=== PATIENT | female | born 1990 | race Caucasian/White ===

== ENCOUNTER 2021-10-29 09:25 | Emergency (ER) | payer OTHER, SELFPAY ==
[2021-10-29 09:49] VITALS: BP 102/64; PULSE 77; RESP 14; TEMP 36; O2SAT 96
--- NOTE | 2021-10-29 10:09 | ED.WOUNDLAC ---
HPI - Wound/Laceration General Chief Complaint: Wound/Laceration Stated Complaint: absess Time Seen by Provider: 10/29/21 09:58 Source: patient Mode of arrival: ambulatory Limitations: no limitations History of Present Illness HPI narrative: 31-year-old female with a history of IV drug abuse here with reports of abscess to the right side of the neck for 4 days. Patient reports she injected some heroin and cocaine into the site and she ?missed . No fevers, chills. Not interested in detox or substance abuse related Related Data Previous Rx's Medication Instructions Recorded doxycycline monohydrate 100 mg 100 mg PO BID #20 caps 10/29/21 capsule Allergies Allergy/AdvReac Type Severity Reaction Status Date / Time No Known Allergies Allergy Unverified 01/11/20 17:38 Review of Systems Review of Systems: Yes all other systems are reviewed and are negative Constitutional: Constitutional: Reports no additional constitutional complaints, Denies body ache(s), Denies chills, Denies fever(s), Denies headache(s) and Denies weakness Eyes: Eyes: Reports no additional eye complaints and Denies change in vision ENT: Reports system reviewed and no additional complaints, except as documented, Denies dizziness, Denies headache(s), Denies nasal congestion, Denies nasal discharge and Denies neck pain Cardiovascular: Cardiovascular: Reports no additional cardiovascular complaints, Denies chest pain, Denies leg edema and Denies dyspnea Respiratory: Respiratory: Reports no additional respiratory complaints, Denies cough and Denies dyspnea Gastrointestinal: Gastrointestinal: Reports no additional gastrointestinal complaints, Denies abdominal pain, Denies diarrhea, Denies nausea and Denies vomiting Genitourinary: Genitourinary: Reports no additional female genitourinary complaints and Denies urinary incontinence Musculoskeletal: Musculoskeletal: Reports no additional musculoskeletal complaints, Denies back pain, Denies arthralgias, Denies joint swelling, Denies neck pain, Denies numbness and Denies tingling Integumentary/Breasts: Skin/Breast: Reports system reviewed and no additional complaints, except as docu, Reports furuncle, Reports swelling, Reports erythema and Denies rash Neurologic: Reports system reviewed and no additional complaints, except as documented, Denies Abnormal speech present, Denies dizziness, Denies headache(s), Denies numbness, Denies tingling and Denies weakness [facility] Past Medical History Attestation statement: The following information was validated with the patient. Source: old records reviewed and nursing notes reviewed Social History Social History Advance Directives: No Advance Directives Information Provided: No Physical Exam Vital Signs: Vital Signs: Last Vital Signs Temp 96.8 F 10/29/21 09:49 Pulse 77 10/29/21 09:49 Resp 14 10/29/21 09:49 BP 102/64 10/29/21 09:49 Pulse Ox 96 10/29/21 09:49 BMI result Body Mass Index 20.0 Const: General: cooperative, healthy appearing, comfortable and no acute distress Orientation/consciousness: patient oriented x3 Limitations: no limitations HEENT: Head: Yes normal to inspection Ears: hearing grossly normal bilaterally General nose exam: Normal external nose present Face and sinus: Yes normal facial exam Mouth: Normal oral and palatal mucosa present Throat: Yes posterior oropharynx normal Eyes: General: appearance normal, both eyes and all related structures Pupils: Equal, round and reactive pupils present Neck: Neck: Yes normal visual inspection, Yes full ROM, Yes no lymphadenopathy and Yes no meningeal signs Neck images: 1. abscess noted-large with fluctuance/drainage/odor Chest: Chest palpation & inspection: normal inspection of the chest Resp: Effort & Inspection: normal respiratory effort Auscultation: clear to auscultation bilaterally Cardio: Rate: regular rate Rhythm: regular rhythm Peripheral pulses: Peripheral pulses 2+ throughout GI: Inspection: Yes normal to inspection Palpation (GI): Soft to palpation and nontender Auscultation: normal bowel sounds Back/Spine/Pelvis: Thoracic/Lumbar Spine: thoracic and lumbar spine normal to inspection Skin: General skin exam: no rashes or lesions noted Neuro: General: patient oriented x3, no meningeal signs, no focal motor deficits and normal sensation to monofilament Cranial nerves: Yes Equal, round and reactive pupils present Cognition (Neuro): normal cognition Speech: No Abnormal speech present Gait exam (Neuro): Normal gait present Motor exam (neuro): 5/5 motor strength present throughout Extrem: General: Yes normal to inspection Course Course Course Narrative: See procedure note. Will start oral antibiotics. Wound culture sent. Will contact patient with results through friend Wander in the room. Asked nursing to update phone number in chart with registration. Unfortunately this was not done prior to patient leaving. Reviewed worrisome signs/symptoms with patient and when to seek additional care. Comfortable with discharge home. MDM - Wound/Laceration MDM Narrative Medical decision making narrative: 31-year-old female here with abscess to the right side of the neck for 4 days after injecting some heroin and cocaine into the site. Patient will need an I&D of the abscess and oral antibiotics She is not interested in detox or detox resources Overall well-appearing. Nontoxic. Afebrile Medical Records Attestation: I reviewed the patient's medical records. Lab Data Attestation: I reviewed the patient's lab results. Procedures Abscess I/D Site: neck Side (if applicable): right Local Anesthetic: lidocaine 1% Amount of anesthesia used (mL): 5 Technique: incised with blade Amount of fluid expressed (mL): 10 Sent for culture/gram staining?: Yes Irrigation: No Packing used?: iodoform Discharge Plan Discharge Clinical Impression: Abscess Patient Disposition: Home, Self-Care Instructions: Abscess (ED), Abscess Incision and Drainage (DC) Additional Instructions: Return for packing removal in 2 days If the packing falls out do not return Prescriptions: New doxycycline monohydrate 100 mg capsule 100 mg PO BID Qty: 20 0RF Referrals: Physician,Unknown J [Primary Care Provider] - Interventions: ED Discharge Assessment Last Done: 10/29/21 11:22 Discharge Date/Time: 10/29/21 11:24
[2021-10-29] MEDS: Lidocaine 4 % Cream KIT 1 APPL TOPICAL (10:18)
[2021-10-29] MEDS: Ibuprofen 600 MG TABLET PO (11:18)
[2021-10-29] MEDS: Lidocaine HCl 1 % MPF 5 ML VIAL SUBCUT (11:22)
== END 2021-10-29 11:24 | disposition home or self-care (01) ==
PROVIDERS: Emergency Provider Internal Medicine
DX: L02.11 Cutaneous abscess of neck (principal); F19.10 Other psychoactive substance abuse, uncomplicated
CPT/HCPCS: 10060; 87071; 87205; 99283; 99284

== ENCOUNTER 2023-05-17 17:43 | Inpatient (IN) | payer SELFPAY ==
--- NOTE | ~2023-05-17 | XR_ITS ---
EXAMINATION: XR HAND, LEFT CLINICAL INFORMATION: Pain. Injury. COMPARISON: None available. TECHNIQUE: PA, lateral, and oblique views of the left hand. FINDINGS: There is soft tissue swelling at the dorsum of the hand. No air in the soft tissue and no radiopaque foreign body. No fracture. Bone and joint are normal. XR/XR hand LT min 3V IMPRESSION: Soft tissue swelling at the dorsum of the hand. No acute osseous abnormality.
[2023-05-17 18:26] VITALS: BP 104/57; PULSE 78; RESP 18; TEMP 37; O2SAT 97; BMI 18.6
--- NOTE | 2023-05-17 18:26 | ED_ITS ---
HPI - General Adult General Chief complaint: Extremity Injury, Upper Stated complaint: Left hand infection Time Seen by Provider: 05/17/23 20:03 Source: patient Mode of arrival: ambulatory Limitations: no limitations History of Present Illness HPI narrative: 33 yo female who has hx of IVDA here with injection site infection dorsum of L hand - started 5 days ago. She is R hand dominant. No hx of MRSA. She notes the redness and swelling has worsened. She has a ring on the 4th finger but adamantly refuses to take it off. MD complaint: L hand infection Onset (ago): day(s) (5) Location: left and upper extremity Radiation: non-radiation Severity: severe Quality: aching Pain Consistency: constant Relieving factors: immobilization Exacerbating factors: movement Associated symptoms: rash Treatments prior to arrival: none Related Data Previous Rx's Medication Instructions Recorded doxycycline monohydrate 100 mg 100 mg PO BID #20 caps 10/29/21 capsule Allergies Allergy/AdvReac Type Severity Reaction Status Date / Time No Known Allergies Allergy Verified 05/17/23 18:26 Review of Systems 2 Review of Systems: Constitutional : No Fever, No Chills ENT/Mouth : No sore throat, No Rhinorrhea Eyes: No Eye Pain, No Swelling, No Redness Cardiovascular : No Chest Pain, No SOB Respiratory : No Cough, No Sputum Gastrointestinal : No Nausea, No Vomiting, No Diarrhea, No abdominal Pain Genitourinary : No Dysuria, No Hematuria Musculoskeletal : No joint pain, No Myalgias, No Joint Swelling Skin : No Skin Lesions, positive skin rash Neuro : No Weakness, No Numbness, No Headache Psych : No Anxiety, No Depression Heme/Lymph: No Bruising, No Bleeding,No Lymphadenopathy Endocrine : No Polyuria, No Polydipsia All other systems reviewed and are negative [facility] Past Medical History Attestation statement: The following information was validated with the patient. Source: old records reviewed Medical History Intravenous drug abuse Social History Social History (Updated 05/17/23 @ 20:21 by Rachna Clifton DO) Patient Tobacco Use Status: Tobacco use Unknown Substance Use Type: IV Drugs Advance Directives: No Advance Directives Information Provided: No Physical Exam ED Vital Signs: Vital Signs - 24 hr 05/17/23 18:26 Temperature 98.6 F Pulse Rate 78 Respiratory Rate 18 Blood Pressure 104/57 L Pulse Oximetry 97 Oxygen Delivery Method Room Air BMI result Body Mass Index 18.6 Appearance: Alert. Oriented X3. No acute distress. slightly restless Eyes: Pupils equal, round and reactive to light. ENT: Pharynx normal. Neck: Normal inspection. Neck supple. CVS: Normal heart rate and rhythm. Pulses normal. Respiratory: No respiratory distress. Breath sounds normal. Abdomen: Soft and nontender. Skin: Skin warm and dry. Normal skin color. Normal skin turgor. Extremities: No lower extremity edema. L hand large abscess with redness onto the fingers and forearm - distal NV intact she can make a fist and give thumbs up swelling goes onto the thenar eminence but she has normal ROM of the thumb. There is warmth noted. She has a ring on 4th finger but after discussion about risks she refuses to take it off. Neuro: Oriented X 3. No motor deficit. No sensory deficit. Course Course Course Narrative: RME performed by Evita Soriano PA-C. Patient is a 33 year old assigned female at presenting to the emergency department with a large left hand abscess. History of IV drug use. Detailed physical exam and review of systems are deferred to the eyeglass assembler. Labs and imaging ordered. Patient placed back in the waiting room pending room availability and results. Reevaluation(s) Reevaluation #1: pain improved after IV morphine during procedure Medications Administered Generic Name Dose Route Start Last Admin Trade Name Freq PRN Reason Stop Dose Admin Vancomycin HCl 1,250 mg/ 250 mls @ 166.667 mls/hr 05/17/23 20:06 05/17/23 21:21 Sodium Chloride IV 05/17/23 21:35 166.67 mls/hr ONCE ONE Administration Discontinued Medications Generic Name Dose Route Start Last Admin Trade Name Freq PRN Reason Stop Dose Admin Piperacillin Sod/Tazobactam 50 mls @ 100 mls/hr 05/17/23 20:06 05/17/23 21:22 Sod 3.375 gm/ Sodium Chloride IV 05/17/23 20:35 Infused ONCE ONE Infusion Sodium Chloride 1,000 mls @ 999 mls/hr 05/17/23 20:15 05/17/23 20:29 Ns IV 05/17/23 21:15 999 mls/hr .Q1H1M WILLEM Administration Lidocaine HCl 1 appl 05/17/23 20:13 05/17/23 20:20 Lidocaine 4 % Cream Kit TOPICAL 05/17/23 20:14 1 appl ONCE ONE Administration Protocol Lidocaine HCl 5 ml 05/17/23 20:13 05/17/23 20:32 Lidocaine Hcl 1 % Mpf 5 Ml Vial SUBCUT 05/17/23 20:14 5 ml ONCE ONE Administration Lorazepam 1 mg 05/17/23 20:13 05/17/23 20:22 Lorazepam 1 Mg Tablet PO 05/17/23 20:14 1 mg ONCE ONE Administration Morphine Sulfate 4 mg 05/17/23 21:11 05/17/23 21:15 Morphine Sulfate 4 Mg/Ml Cartridge IVPUSH 05/17/23 21:12 4 mg ONCE ONE Administration Protocol Procedures Abscess I/D Site: hand Side (if applicable): left Local Anesthetic: lidocaine 1% Amount of anesthesia used (mL): 2 Technique: incised with blade Amount of fluid expressed (mL): 20 Sent for culture/gram staining?: Yes Irrigation: Yes Packing used?: iodoform Medical Decision Making Medical Decision Making [facility] Narrative: 33 yo female R hand dominant here with worsening L hand abscess from IVDA she can make a fist - she refuses to take her ring off though we discussed limb ischemia. She is open to methadone for detox. She will need labs, IV vancomycin and zosyn. I do not think she has signs of tendon involvement at this time but bedside I+D should be done now with orthopedics follow up in AM - I did send a message to Dr. Burrows and will admit to the hospitalist. She is NV intact Differential Diagnosis Differential Diagnoses: The differential diagnosis associated with the presentation includes cellulitis, abscess Admission/Observation Consideration of admission/observation: Escalation of care including admission/observation considered admit for IV antibiotics Consult Healthcare Provider Management of the patient was discussed with: Hospitalist (will admit) and Sketcher (notified orthopedics team) Lab Data [facility] Lab Attestation statement: I reviewed the patient's lab results. 05/17/23 19:52 05/17/23 19:52 Labs: Lab Results 05/17/23 Range/Units 19:52 WBC 13.1 H (4.8-10.8) X10*3/uL RBC 3.93 L (4.20-5.50) X10*6/uL Hgb 11.5 L (12.0-16.0) g/dl Hct 34.3 L (37.0-47.0) % MCV 87.3 (80.0-98.0) fL MCH 29.3 (27.0-33.0) pg MCHC 33.5 (31.0-35.0) g/dl RDW 12.6 (11.0-16.0) % Plt Count 249 (160-400) X10*3/uL MPV 8.7 L (9.4-12.3) fL Immature Gran % (Auto) 0.3 (0.0-0.4) % Neut % (Auto) 63.4 (45-73) % Lymph % (Auto) 23.1 (20-40) % [place] % (Auto) 9.3 (2-11) % Eos % (Auto) 3.6 (0-4) % Baso % (Auto) 0.3 (0-2) % Lymph # (Auto) 3.0 (1.2-4.9) X10*3/uL [place] # (Auto) 1.2 (0.1-1.2) X10*3/uL Eos # (Auto) 0.5 H (0.0-0.4) X10*3/uL Baso # (Auto) 0.0 (0.0-0.2) X10*3/uL Abs Immat Gran (auto) 0.04 H (0.00-0.03) X10*3/uL Absolute Neuts (auto) 8.3 (2.0-8.3) x10*3/uL Absolute Nucleated RBC 0.000 (0.0-0.012) X10*3/uL Nucleated RBC % (auto) 0.0 (0.0-0.2) /100WBC ESR 45 H (0-20) MM/HR Sodium 135 (135-145) mmol/L Potassium 3.9 (3.3-5.1) mmol/L Chloride 100 (96-108) mmol/L Carbon Dioxide 29 (22-29) mmol/L Anion Gap 10 L (12-20) BUN 12 (9-16) mg/dL Creatinine 0.65 (0.5-1.4) mg/dL Estim Creat Clear Calc 102.9 Estimated GFR > 60 Random Glucose 88 (60-115) mg/dL Lactic Acid 0.8 (0.5-2.0) mmol/L Calcium 9.3 (8.4-10.2) mg/dL Magnesium 1.9 (1.6-2.6) mg/dL Total Bilirubin 0.6 (0.0-1.0) mg/dL AST 159 H (5-31) U/L ALT 219 H (0-31) U/L Alkaline Phosphatase 76 (39-117) U/L C-Reactive Protein 6.85 H (< or = 0.50) mg/dL Total Protein 7.9 (6.5-8.0) g/dL Albumin 3.9 (3.5-5.0) g/dL Beta HCG, Quant < 2 mIU/mL Independent Interpretation I performed an independent interpretation of an: Plain X-Ray (normal ) Radiology Impression Discussion of test interpretation with radiology: I have reviewed the radiologist's reading. Independent Historian Clinical information obtained from an independent historian. History obtained from or confirmed by: Spouse Critical Care Time Critical Care Time Critical Care Time: Yes Total Critical Care Time: 35 Attestation: pain improved with IV morphine I attest to this time spent taking care of the patient Discharge Plan Discharge Clinical Impression: Abscess of hand, Drug abuse, IV Elevated WBC count Qualifiers: Leukocytosis type: unspecified Qualified Code(s): D72.829 - Elevated white blood cell count, unspecified Patient Disposition: Admitted As Inpatient
--- NOTE | 2023-05-17 19:55 | MHC.EDTECH ---
Patient brought into triage area,1ST set of blood cultures,lactic,and labs were obtained and sent to lab, patient brought into ED 10 per request of charge.
[2023-05-17 20:03] LABS: MANUAL DIFF FLAG NO
[2023-05-17 20:05] LABS: Basophils Percent Auto 0.3 % (0-2); Eosinophils Absolute Auto 0.5 X10*3/uL (0.0-0.4); Eosinophils Percent Auto 3.6 % (0-4); Hematocrit 34.3 % (37.0-47.0); Hemoglobin 11.5 g/dl (12.0-16.0); Imm Gran Abs Auto 0.04 X10*3/uL (0.00-0.03); Imm Gran Pct Auto 0.3 % (0.0-0.4); Lymphocytes Percent Auto 23.1 % (20-40); Mean Corpuscular HGB Conc 33.5 g/dl (31.0-35.0); Mean Corpuscular Hemoglobin 29.3 pg (27.0-33.0); Mean Corpuscular Volume 87.3 fL (80.0-98.0); Mean Platelet Volume 8.7 fL (9.4-12.3); Monocytes Absolute Auto 1.2 X10*3/uL (0.1-1.2); Monocytes Percent Auto 9.3 % (2-11); Neutrophils Absolute Auto 8.3 x10*3/uL (2.0-8.3); Neutrophils Percent Auto 63.4 % (45-73); Platelet Count 249 X10*3/uL (160-400); Red Blood Count 3.93 X10*6/uL (4.20-5.50); Red Cell Distribution Width 12.6 % (11.0-16.0); White Blood Count 13.1 X10*3/uL (4.8-10.8)
[2023-05-17 20:15] LABS: Lactic Acid 0.8 mmol/L (0.5-2.0)
[2023-05-17 20:20] LABS: Alanine Aminotransferase 219 U/L (0-31); Albumin Level 3.9 g/dL (3.5-5.0); Alkaline Phosphatase 76 U/L (39-117); Anion Gap 10 (12-20); Aspartate Amino Transferase 159 U/L (5-31); Bilirubin Total 0.6 mg/dL (0.0-1.0); Blood Urea Nitrogen 12 mg/dL (9-16); C Reactive Protein 6.85 mg/dL (< or = 0.50); Calcium 9.3 mg/dL (8.4-10.2); Carbon Dioxide 29 mmol/L (22-29); Chloride 100 mmol/L (96-108); Creatinine Clr Calc Pharmacy 102.9; Estimated Glomerular Filt Rate > 60; Glucose Random 88 mg/dL (60-115); Magnesium 1.9 mg/dL (1.6-2.6); Potassium 3.9 mmol/L (3.3-5.1); Sodium 135 mmol/L (135-145); Total Protein 7.9 g/dL (6.5-8.0)
[2023-05-17] MEDS: Lidocaine 4 % Cream KIT 1 APPL TOPICAL (20:20)
[2023-05-17] MEDS: LORazepam 1 MG TABLET PO (20:22)
[2023-05-17] MEDS: 0.9 % Sodium Chloride 1,000 ML 999 ML IV ×2 (20:29→22:21)
[2023-05-17] MEDS: Piperacillin Sodium/Tazobactam 3.375 GM in 0.9 % Sodium Chloride 50 ML IV (20:29)
[2023-05-17] MEDS: Lidocaine HCl 1 % MPF 5 ML VIAL SUBCUT (20:32)
[2023-05-17 20:49] LABS: Erythrocyte Sedimentation Rate 45 MM/HR (0-20)
[2023-05-17 20:58] LABS: HCG Quantitative < 2 mIU/mL
[2023-05-17] MEDS: Morphine Sulfate 4 MG/ML CARTRIDGE IVPUSH (21:15)
[2023-05-17] MEDS: vancomycin HCL 1,250 MG in 0.9 % Sodium Chloride 250 ML 166.67 MG IV (21:21)
--- NOTE | 2023-05-17 21:30 | PC.NURSE ---
Pt presents with an abscess to the left hand. Dr Clifton at bedside drained a significant amount of blood and puss. Pt has a 20g IV in the right AC. Medicated per JUN. Pt reports pain decreased slightly after lidocaine and ,orphine. Hand is wrapped and secure. Pt likely to be admitted with IV antibiotics.
[2023-05-17 21:31] VITALS: BP 105/55; PULSE 71; RESP 16; TEMP 36.8; O2SAT 95
--- NOTE | 2023-05-17 21:46 | PC.NURSE ---
Per Dr Clifton, holding methadone until pt is beginning to withdraw.
--- NOTE | 2023-05-17 21:50 | PHA.MEDREC ---
Pharmacy Consult ? Medication Reconciliation Pharmacy has completed the medication reconciliation.Patient confirmed she is not taking ANY medication. Jazmine Galvan CPht
--- NOTE | 2023-05-17 21:55 | PHA.PROG ---
Admission Date/Time: Indication: SKIN/STRUCTURE Weight in k.977 kg Adjusted body weight in K.551 [place] body weight in K.6 Obesity Dosing Indication % IBW: 18.6 Serum Creatinine - Last 168 Hours 05/17/23 19:52 Creatinine 0.65 Estimated CrCl and GFR - Last 168 Hours 05/17/23 19:52 Estim Creat Clear Calc 102.9 Estimated GFR > 60 Vancomycin Loading Dose: 1250 MG Current Vancomycin Dosing Regimen: 1000 MG Q12 Vancomycin Monitoring using AUC goal of 400 - 600 range with trough as surrogate marker:499/14.2 Date and Time for next Vancomycin Level to be drawn: 05/19 @0700 Pharmacist Comments on Vancomycin Plan: APPROPRIATE LOAD GIVEN IN ED. MONITOR RENAL FUNCTION CLOSELY WITH CONCURRENT ZOSYN ADMINISTRATION. Vancomycin dosing will take advantage of [employer] as a clinical decision support tool that uses Bayesian modeling to calculate individual patient's pharmacokinetic parameters and forecast the patient's drug concentration time course with the target goal AUC 24 range of 400 - 600 mg/L/hr.
[2023-05-17 22:10] VITALS: BP 100/49; PULSE 72; RESP 14; O2SAT 95
--- NOTE | 2023-05-17 23:38 | P.HPHOSP_ITS ---
History of Present Illness Date of Service: 05/17/23 Attending physician on admission: Edgar Noble Chief Complaint: Left hand swelling Aline Handy is a 33 years old woman with past medical history significant for IVDU presents to the emergency department complaining of left had swelling, redness and pain that has been getting worse over the last 6 days. Prior to these symptoms she injected the dorsum of the hand with heroin but she missed the vein. She denies any headache, nausea, vomiting, fevers chills. She denies any cardiopulmonary, gastrointestinal or genitourinary symptoms. She expressed that she would like to start rehab and hopefully stop using illegal drugs. In the ED, she was found to have stable vital signs. Blood workup was remarkable for leukocytosis of 13.1 and elevated CRP. AST and ALT elevated. Total bilirubin and alk-phos are normal. There is no lactic acidosis. test was negative. Blood cultures were obtained. Left hand x-ray showed soft tissue swelling at the dorsum of the hand without acute osseous abnormalities. ED tx: Vancomycin 1250 mg IV, Zosyn 3.375 g IV, lorazepam 1 mg p.o. x1, NS 1 L bolus, morphine 4 mg. I&D was performed, removing abundant quantity of purulent fluid and sent for analysis. Review of Systems 2 Review of Systems: All 12 systems were reviewed and normal except as noted in HPI. [facility] Medical History Intravenous drug abuse Social History (Updated 05/17/23 @ 20:21 by Rachna Clifton DO) Patient Tobacco Use Status: Current everyday Tobacco user Smoked in Last 30 Days: Yes Use of substances other than those prescribed or required for medical reasons: Yes Substance Use Type: Crack/Cocaine and Heroin Substance Use Frequency: Daily Advance Directives: No Advance Directives Information Provided: No Patient : No Meds Allergies Allergy/AdvReac Type Severity Reaction Status Date / Time No Known Allergies Allergy Verified 05/17/23 18:26 Active Medications: Current Medications Acetaminophen (Acetaminophen 325 Mg Tablet) 975 mg PO Q6H PRN PRN Reason: Fever Vancomycin HCl 1,000 mg/ (Sodium Chloride) 270 mls @ 270 mls/hr IV Q12H WILLEM Piperacillin Sod/Tazobactam (Sod 3.375 gm/ Sodium Chloride) 50 mls @ 100 mls/hr IV Q8H WILLEM Oxycodone HCl (Oxycodone Hcl Immed Release 5 Mg Tablet) 5 mg PO Q6H PRN PRN Reason: Pain, Severe (Pain Scale 7-10) Pharmacy Consult (Consult Rx Vancomycin Dosing) 1 each MISCELLANE DAILY PRN PRN Reason: Consult order Pharmacy Consult (Consult Rx Vancomycin Dosing) 1 each MISCELLANE DAILY PRN PRN Reason: Consult order Sodium Chloride (0.9 % Sodium Chloride Flush 3 Ml Syringe) 3 ml IVFLUSH QSHIFT WILLEM Physical Exam 2 Vital Signs and Narrative: Vital Signs: Last Vital Signs Temp 98.2 F 05/17/23 21:31 Pulse 72 05/17/23 22:10 Resp 14 05/17/23 22:10 BP 100/49 L 05/17/23 22:10 Pulse Ox 95 05/17/23 22:10 O2 Del Method Room Air 05/17/23 22:10 BMI result Body Mass Index 18.6 Constitutional - Awake and Alert, No apparent distress. Pleasant. Cooperative. HEENT - Normocephalic. Atraumatic. Pupils equally round. No scleral icterus. Cardiovascular -Regular rate and rhythm. No murmur. Respiratory - Normal lung expansion, Normal respiratory effort, No respiratory distress, CTA bilaterally Gastrointestinal - NT / ND; +BS; No rebound or guarding Extremities - left hand: Please see picture ED note. Musculoskeletal - Normal inspection, normal ROM Skin - Warm/Dry Neurological - Alert & oriented x3, CN II-XII in tact, 5/5 strength BUE and BLE Psychological - Appropriate affect Results Labs 05/17/23 19:52 05/17/23 19:52 Labs: Laboratory Results - last 24 hr 05/17/23 19:52 MCV 87.3 MCH 29.3 MCHC 33.5 RDW 12.6 Plt Count 249 MPV 8.7 L Immature Gran % (Auto) 0.3 Neut % (Auto) 63.4 Lymph % (Auto) 23.1 [place] % (Auto) 9.3 Eos % (Auto) 3.6 Baso % (Auto) 0.3 Lymph # (Auto) 3.0 [place] # (Auto) 1.2 Eos # (Auto) 0.5 H Baso # (Auto) 0.0 Abs Immat Gran (auto) 0.04 H Absolute Neuts (auto) 8.3 Absolute Nucleated RBC 0.000 Nucleated RBC % (auto) 0.0 ESR 45 H Anion Gap 10 L Estim Creat Clear Calc 102.9 Estimated GFR > 60 Random Glucose 88 Lactic Acid 0.8 Calcium 9.3 Magnesium 1.9 Total Bilirubin 0.6 AST 159 H ALT 219 H Alkaline Phosphatase 76 C-Reactive Protein 6.85 H Total Protein 7.9 Albumin 3.9 Beta HCG, Quant < 2 Imaging Radiologist's Impressions: Impressions Hand X-Ray 05/17/23 18:39 IMPRESSION: Soft tissue swelling at the dorsum of the hand. No acute osseous abnormality. Assessment and Plan (1) Drug abuse, IV: Status: Acute (2) Abscess of hand: Status: Acute Plan Aline Handy is a 33 years old woman admitted with: * Left hand cellulitis and abscess, s/p I&D (20 ml). Admit to hospitalist service. Continue empiric IV antibiotic therapy with vancomycin and Zosyn. Blood and abscess cultures were obtained and sent for analysis- will follow results. Pain control as needed. Ortho consult. * Elevated transaminases. (alk phos and total bilirubin are normal). Check total CK, hepatitis B and hepatitis C viral. Continue to monitor LFTs. * Intravenous drug abuse: heroin. Social work consult -patient needs help to detox. Quality Stroke Does the patient have a stroke diagnosis?: No VTE Prior VTE?: No VTE Risk Level:: Medical - low VTE Device Contraindication: N/A - Device Ordered VTE Drug Contraindication: Treatment Not Indicated
[2023-05-18] MEDS: Piperacillin Sodium/Tazobactam 3.375 GM in 0.9 % Sodium Chloride 50 ML IV ×3 (03:41→19:47)
[2023-05-18] MEDS: Ketorolac Tromethamine 15 MG/ML VIAL IVPUSH ×2 (04:39→10:38)
[2023-05-18 05:41] LABS: MANUAL DIFF FLAG NO
[2023-05-18 05:43] LABS: Basophils Percent Auto 0.2 % (0-2); Eosinophils Absolute Auto 0.4 X10*3/uL (0.0-0.4); Eosinophils Percent Auto 4.8 % (0-4); Hematocrit 29.9 % (37.0-47.0); Imm Gran Abs Auto 0.02 X10*3/uL (0.00-0.03); Imm Gran Pct Auto 0.2 % (0.0-0.4); Lymphocytes Absolute Auto 1.8 X10*3/uL (1.2-4.9); Lymphocytes Percent Auto 20.8 % (20-40); Mean Corpuscular HGB Conc 33.4 g/dl (31.0-35.0); Mean Corpuscular Hemoglobin 29.7 pg (27.0-33.0); Mean Corpuscular Volume 88.7 fL (80.0-98.0); Monocytes Absolute Auto 0.8 X10*3/uL (0.1-1.2); Monocytes Percent Auto 9.5 % (2-11); Neutrophils Absolute Auto 5.5 x10*3/uL (2.0-8.3); Neutrophils Percent Auto 64.5 % (45-73); Platelet Count 212 X10*3/uL (160-400); Red Blood Count 3.37 X10*6/uL (4.20-5.50); Red Cell Distribution Width 12.8 % (11.0-16.0); White Blood Count 8.6 X10*3/uL (4.8-10.8)
[2023-05-18 06:05] VITALS: BP 100/59; PULSE 70; RESP 16; TEMP 36.8; O2SAT 95
[2023-05-18 06:13] LABS: Alanine Aminotransferase 177 U/L (0-31); Alkaline Phosphatase 54 U/L (39-117); Anion Gap 9 (12-20); Aspartate Amino Transferase 135 U/L (5-31); Bilirubin Total 0.8 mg/dL (0.0-1.0); Blood Urea Nitrogen 8 mg/dL (9-16); Calcium 8.2 mg/dL (8.4-10.2); Carbon Dioxide 25 mmol/L (22-29); Chloride 106 mmol/L (96-108); Creatinine Clr Calc Pharmacy 95.5; Estimated Glomerular Filt Rate > 60; Glucose Random 180 mg/dL (60-115); Potassium 3.1 mmol/L (3.3-5.1); Sodium 137 mmol/L (135-145); Total Protein 6.2 g/dL (6.5-8.0)
--- NOTE | 2023-05-18 07:19 | HE.PHANOTE ---
RE: VANCO Will continue with current dose of 1000 mg Q12H. Patients renal function is currently unstable. Level to be drawn tomorrow 05/19 @0700 to ensure safety vs efficacy.
--- NOTE | 2023-05-18 08:01 | PM.EVENT ---
Event Note Date of Service: 05/18/23 Event Note: left hand ivdu abscess packing pulled new packing placed perform warm water soaks resting splint no surgery at this time Time Spent With Patient Time: Total time managing care of this patient today ____ minutes.
--- NOTE | 2023-05-18 08:05 | PHA.MEDREC ---
Pharmacy Consult ? Medication Reconciliation Pharmacy has completed the medication reconciliation. Spoke with patient in ED. Patient states she is not on any RX medications or OTC medications.
--- NOTE | 2023-05-18 08:34 | MHC.CM.PN ---
CM met with Patient at bedside. Patient lives in an apartment with her Friend/Luke and she has no insurance (referral to Financial sent)and no PCP(Pamphlet of area PCSs to be given to Patient). DC plan is TBD and CM has initiated and will follow for dc planning.Patient may benefit from a Recovery Consult r/t IVDA.
--- NOTE | 2023-05-18 09:46 | P.CONOP_ITS ---
History of Present Illness [facility] Consult date: 05/18/23 Chief complaint: Left hand cellulitis Narrative: 33 yo female admitted to the medical service for treatment of left hand abscess. She states she injected heroin into the dorsum of her left hand 6 days ago. Subsequently she noticed worsening redness and pain which prompted visit to ED. While in the ED, the abscess was drained and packed with iodoform packing and orthpedics was constuled for further recommendations. She was started on IV vanco/zosyn Review of Systems 2 Review of Systems: per [facility] Past Medical History Medical History Intravenous drug abuse Social History Social History (Updated 05/17/23 @ 20:21 by Rachna Clifton DO) Patient Tobacco Use Status: Current everyday Tobacco user Smoked in Last 30 Days: Yes Use of substances other than those prescribed or required for medical reasons: Yes Substance Use Type: Crack/Cocaine and Heroin Substance Use Frequency: Daily Advance Directives: No Advance Directives Information Provided: No Patient : No service: No Meds Allergies Allergy/AdvReac Type Severity Reaction Status Date / Time No Known Allergies Allergy Verified 05/17/23 18:26 Active Medications: Current Medications Acetaminophen (Acetaminophen 325 Mg Tablet) 975 mg PO Q6H PRN PRN Reason: Fever Vancomycin HCl 1,000 mg/ (Sodium Chloride) 270 mls @ 270 mls/hr IV Q12H [facility] Piperacillin Sod/Tazobactam (Sod 3.375 gm/ Sodium Chloride) 50 mls @ 100 mls/hr IV Q8H [facility] Last Infusion: 05/18/23 04:37 Dose: Infused Ketorolac Tromethamine (Ketorolac Tromethamine 15 Mg/Ml Vial) 15 mg IVPUSH Q6H [facility] Stop: 05/18/23 10:31 Last Admin: 05/18/23 04:39 Dose: 15 mg Oxycodone HCl (Oxycodone Hcl Immed Release 5 Mg Tablet) 5 mg PO Q6H PRN PRN Reason: Pain, Severe (Pain Scale 7-10) Pharmacy Consult (Consult Rx Vancomycin Dosing) 1 each MISCELLANE DAILY PRN PRN Reason: Consult order Pharmacy Consult (Consult Rx Vancomycin Dosing) 1 each MISCELLANE DAILY PRN PRN Reason: Consult order Sodium Chloride (0.9 % Sodium Chloride Flush 3 Ml Syringe) 3 ml IVFLUSH QSHIFT [facility] Last Admin: 05/18/23 07:34 Dose: Not Given Home Medications Medication Instructions Recorded Confirmed Last Taken Type No Known Home Meds 05/18/23 05/18/23 Unknown History Physical Exam 2 Vital Signs: Vital Signs: Last Vital Signs Temp 98.2 F 05/18/23 06:05 Pulse 70 05/18/23 06:05 Resp 16 05/18/23 06:05 BP 100/59 L 05/18/23 06:05 Pulse Ox 95 05/18/23 06:05 O2 Del Method Room Air 05/18/23 06:05 BMI result Body Mass Index 18.6 Const: General: cooperative, healthy appearing, comfortable and no acute distress Extrem: Other: Left hand abscess over the dorsum of the hand between the webspace of the thumb and index finger. There is purulant drainage and packing in place. Mild diffuse swelling throughout the dorsum of he hand. She is able to flex and extend all digits. NVI. Results Labs 05/18/23 05:27 05/18/23 05:27 Labs: Abnormal lab results 05/17/23 05/18/23 Range/Units 19:52 05:27 WBC 13.1 H (4.8-10.8) X10*3/uL RBC 3.93 L 3.37 L (4.20-5.50) X10*6/uL Hgb 11.5 L 10.0 L (12.0-16.0) g/dl Hct 34.3 L 29.9 L (37.0-47.0) % MPV 8.7 L 9.0 L (9.4-12.3) fL Eos % (Auto) 4.8 H (0-4) % Eos # (Auto) 0.5 H (0.0-0.4) X10*3/uL Abs Immat Gran (auto) 0.04 H (0.00-0.03) X10*3/uL ESR 45 H (0-20) MM/HR Potassium 3.1 L D (3.3-5.1) mmol/L Anion Gap 10 L 9 L (12-20) BUN 8 L (9-16) mg/dL Random Glucose 180 H (60-115) mg/dL Calcium 8.2 L D (8.4-10.2) mg/dL AST 159 H 135 H (5-31) U/L ALT 219 H 177 H (0-31) U/L C-Reactive Protein 6.85 H (< or = 0.50) mg/dL Total Protein 6.2 L (6.5-8.0) g/dL Albumin 3.0 L (3.5-5.0) g/dL H & H 05/17/23 05/18/23 Range/Units 19:52 05:27 Hgb 11.5 L 10.0 L (12.0-16.0) g/dl Hct 34.3 L 29.9 L (37.0-47.0) % All other labs normal. Assessment and Plan (1) Abscess of hand: Status: Acute Plan Continue IV abx packing pulled and new packing placed pull tomorrow and perform warm water soaks Resting splint No surgical intervention at this time Procedures Date of Service Date of Service: 05/18/23
[2023-05-18] MEDS: vancomycin HCL 1,000 MG in 0.9 % Sodium Chloride 250 ML 270 MG IV ×2 (10:41→21:06)
[2023-05-18 10:45] VITALS: BP 105/49; PULSE 61; RESP 12; TEMP 36.7; O2SAT 98
[2023-05-18 12:24] VITALS: BP 123/71; PULSE 87; RESP 16; TEMP 36.6; O2SAT 100
[2023-05-18] MEDS: oxyCODONE HCl Immed Release 5 MG TABLET PO ×2 (12:57→19:49)
[2023-05-18] MEDS: Acetaminophen 325 MG TABLET 975 MG PO (12:58)
[2023-05-18 13:04] LABS: HBsAGNum1 0.42 S/CO (0.00-0.99); Hepatitis B Surface Antigen Negative (Negative); ~HepC Num1 19.74 S/CO (0.00-0.79); ~Hepatitis B Surface Antibody REACTIVE (Nonreactive); ~Hepatitis C Antibody Reactive (Nonreactive)
[2023-05-18 14:32] VITALS: BP 122/67; PULSE 75; RESP 18; TEMP 36.6; O2SAT 95
--- NOTE | 2023-05-18 15:07 | PC.NURSE ---
admission report complete, awaiting pt transport.
[2023-05-18 15:39] VITALS: BP 130/73; PULSE 79; RESP 17; TEMP 36.5; O2SAT 97
[2023-05-18 15:46] VITALS: BMI 21.2
--- NOTE | 2023-05-18 16:09 | MHC.RECOVRN ---
Met with pt this morning after consult placed to Addiction Medicine for opioid use. Pt had presented to the ED reporting left hand swelling x 5 days after IVDU. Subsequently, pt admitted for left hand cellulitis. Pt laying in bed, awake, alert, easily engages in conversation, appears slightly uncomfortable, diaphoretic. Pt reports heroin/fentanyl use, IV, 3 bundles daily, last use [employer]. Pt also reports cocaine use, INH, approx 1 gram daily, last use [employer]. Pt reporting withdrawal symptoms including diaphoresis, hot/cold flashes. Discussed LIZZ, pt interested in methadone to address withdrawal symptoms. Pt denies questions or concerns for t/w. Discussed with Aranza Lloyd APRN.
--- NOTE | 2023-05-18 17:10 | HO.WOUND ---
Wound consult: Initial Wound consult placed for Left hand abscess site s/p I&D in ED. Ortho consulted on patient and made topical recommendations. Per Dr. Moore no topical recommendations needed from inpatient wound care. Wound consult will be discontinued - will place new consult should topical interventions be needed.
--- NOTE | 2023-05-18 17:13 | P.PNIM_ITS ---
Subjective Subjective Date of Service: 05/18/23 Interval History: Left hand swelling/cellulitis Review of Systems left hand is wrapped no fever or chills or nausea or vomiting Physical Exam 2 Vital Signs: Vital Signs: Last Vital Signs Temp 97.7 F 05/18/23 15:39 Pulse 79 05/18/23 15:39 Resp 17 05/18/23 15:39 BP 130/73 05/18/23 15:39 Pulse Ox 97 05/18/23 15:39 O2 Del Method Room Air 05/18/23 15:39 BMI result Body Mass Index 21.2 Appearance: Alert.? Oriented X3.? not in distress.? cvs: [id number], [id number] , no murmur res: clear to auscultation ,no rhonchii or wheezing abd: no rebound or guarding ,nt, bs present. ext pulses present , no cyanosis left hand -wrapped . neuro: axo3 , nonfocal. Objective Data Active Medications Acetaminophen (Acetaminophen 325 Mg Tablet) 975 mg PO Q6H PRN PRN Reason: Fever Last Admin: 05/18/23 12:58 Dose: 975 mg Documented By: MISTI Clonidine HCl (Clonidine Hcl 0.1 Mg Tablet) 0.1 mg PO TID PRN; Protocol PRN Reason: anxiety/restlessness Hydroxyzine HCl (Hydroxyzine Hcl 50 Mg Tablet) 50 mg PO Q8H PRN PRN Reason: Anxiety Vancomycin HCl 1,000 mg/ (Sodium Chloride) 270 mls @ 270 mls/hr IV Q12H [facility] Last Infusion: 05/18/23 12:55 Dose: Infused Documented By: MISTI Piperacillin Sod/Tazobactam (Sod 3.375 gm/ Sodium Chloride) 50 mls @ 100 mls/hr IV Q8H [facility] Last Infusion: 05/18/23 13:55 Dose: Infused Documented By: MISTI Influenza Virus Vaccine (Flu Vacc [id number](6mos Up)/Pf 0.5 Ml Syringe) 0.5 ml IM .ONCE ONE Stop: 05/19/23 10:01 Methadone HCl (Methadone Hcl 20 Mg/2 Ml Oral.Conc) 30 mg PO DAILY [facility] Methadone HCl (Methadone Hcl 20 Mg/2 Ml Oral.Conc) 10 mg PO DAILY PRN PRN Reason: Opiate Withdrawal Oxycodone HCl (Oxycodone Hcl Immed Release 5 Mg Tablet) 5 mg PO Q6H PRN PRN Reason: Pain, Severe (Pain Scale 7-10) Last Admin: 05/18/23 12:57 Dose: 5 mg Documented By: MISTI Pharmacy Consult (Consult Rx Vancomycin Dosing) 1 each MISCELLANE DAILY PRN PRN Reason: Consult order Pharmacy Consult (Consult Rx Vancomycin Dosing) 1 each MISCELLANE DAILY PRN PRN Reason: Consult order Sodium Chloride (0.9 % Sodium Chloride Flush 3 Ml Syringe) [facility] Last Admin: 05/18/23 07:34 Dose: Not Given Documented By: MISTI Non-Admin Reason: Med Not Available Labs 05/18/23 05:27 05/18/23 05:27 Labs: Laboratory Results - last 24 hr 05/17/23 05/18/23 19:52 05:27 MCV 87.3 88.7 MCH 29.3 29.7 MCHC 33.5 33.4 RDW 12.6 12.8 Plt Count 249 212 MPV 8.7 L 9.0 L Immature Gran % (Auto) 0.3 0.2 Neut % (Auto) 63.4 64.5 Lymph % (Auto) 23.1 20.8 [place] % (Auto) 9.3 9.5 Eos % (Auto) 3.6 4.8 H Baso % (Auto) 0.3 0.2 Lymph # (Auto) 3.0 1.8 [place] # (Auto) 1.2 0.8 Eos # (Auto) 0.5 H 0.4 Baso # (Auto) 0.0 0.0 Abs Immat Gran (auto) 0.04 H 0.02 Absolute Neuts (auto) 8.3 5.5 Absolute Nucleated RBC 0.000 0.000 Nucleated RBC % (auto) 0.0 0.0 ESR 45 H Anion Gap 10 L 9 L Estim Creat Clear Calc 102.9 95.5 Estimated GFR > 60 > 60 Random Glucose 88 180 H Lactic Acid 0.8 Calcium 9.3 8.2 L D Magnesium 1.9 Total Bilirubin 0.6 0.8 AST 159 H 135 H ALT 219 H 177 H Alkaline Phosphatase 76 54 Total Creatine Kinase 44 C-Reactive Protein 6.85 H Total Protein 7.9 6.2 L Albumin 3.9 3.0 L Beta HCG, Quant < 2 Hep Bs Antigen Negative Hep Bs Antibody REACTIVE Hepatitis C Ab (EIA) Reactive H Assessment and Plan (1) Elevated WBC count: Status: Acute (2) Abscess of hand: Status: Acute Plan 33 years old woman admitted with: Left hand cellulitis and abscess, s/p I&D (20 ml). no fever,leucocytosis resolved. Blood and abscess cultures were obtained and sent for analysis- will follow results. Continue IV antibiotic therapy with vancomycin and Zosyn,Pain control as needed. Ortho consult-packing pulled and new packing placed , ortho follow up tomorrow. Elevated transaminases. (alk phos and total bilirubin are normal). Check total CK normal , hepatitis B and hepatitis C viral-pending LFTs trending down. 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 Quality Stroke Does the patient have a stroke diagnosis?: No VTE Prior VTE?: No VTE Risk Level:: Medical - low VTE Device Contraindication: N/A - Device Ordered VTE Drug Contraindication: Treatment Not Indicated
[2023-05-18] MEDS: Potassium Chloride ER 20 MEQ TAB.ER.PRT PO (17:44)
[2023-05-18] MEDS: 0.9 % Sodium Chloride Flush 3 ML SYRINGE IVFLUSH (17:44)
[2023-05-18] MEDS: methADONE HCl 20 MG/2 ML ORAL.CONC 30 MG PO (17:44)
[2023-05-18 19:05] VITALS: BP 126/71; PULSE 72; RESP 17; TEMP 36.6; O2SAT 96
[2023-05-18] MEDS: hydrOXYzine HCL 50 MG TABLET PO (19:49)
[2023-05-19] MEDS: oxyCODONE HCl Immed Release 5 MG TABLET PO ×3 (02:00→20:01)
[2023-05-19] MEDS: cloNIDine HCL 0.1 MG TABLET PO ×2 (02:01→23:05)
[2023-05-19 04:00] VITALS: BP 115/57; PULSE 64; RESP 16; TEMP 36.1; O2SAT 96
[2023-05-19] MEDS: Piperacillin Sodium/Tazobactam 3.375 GM in 0.9 % Sodium Chloride 50 ML IV ×3 (04:25→19:52)
[2023-05-19 07:05] VITALS: BP 120/58; PULSE 58; RESP 16; TEMP 36.1; O2SAT 97
--- NOTE | 2023-05-19 07:43 | PM.PNORT ---
Subjective Subjective Date of Service: 05/19/23 Interval history: Patient laying in bed comfortably No overnight events splint is c/d/i. No additional complaints Physical Exam Vital Signs: Vital Signs: Last Vital Signs Temp 97 F 05/19/23 07:05 Pulse 58 05/19/23 07:05 Resp 16 05/19/23 07:05 BP 120/58 L 05/19/23 07:05 Pulse Ox 97 05/19/23 07:05 O2 Del Method Room Air 05/19/23 07:05 BMI result Body Mass Index 21.2 Const: General: cooperative, healthy appearing and no acute distress Resp: Effort & Inspection: normal respiratory effort and able to speak in complete sentences Cardio: Rate: regular rate Peripheral pulses: Peripheral pulses 2+ throughout GI: Palpation (GI): Soft to palpation Skin: Lesions: no lesions Rashes: no rashes Extrem: Other: Left hand splint is c/d/i. Moving all digits. Procedures Date of Service Date of Service: 05/19/23 Progress Note: A&P Assessment and plan (1) Drug abuse, IV: Status: Acute (2) Abscess of hand: Status: Acute Assessment and Plan: Continue pain mgmnt Attempted to change dressing at bedside - Patient refused and went into the bathroom Consult to wound care for removal of packing, redress as appropriate, splint for comfort Begin OT for gentle ROM of hand Dispo planning-dressing changes as needed, no additional orthopedic intervention needed at this time. Time Spent With Patient Time: Total time managing care of this patient today ____ minutes. Quality Stroke Does the patient have a stroke diagnosis?: No VTE Prior VTE?: No VTE Risk Level:: Medical - low VTE Device Contraindication: N/A - Device Ordered VTE Drug Contraindication: Treatment Not Indicated
[2023-05-19 07:44] LABS: Creatinine Clr Calc Pharmacy 131.4; Estimated Glomerular Filt Rate > 60; Vancomycin Random 3.1 mcg/mL (15-20)
[2023-05-19 08:30] LABS: Potassium 3.9 mmol/L (3.3-5.1)
--- NOTE | 2023-05-19 08:51 | HE.PHANOTE ---
re: flores patients level came back this morning at 3.1. patients MAR shows that an appropriate load was given as well as 2 doses of 1000 mg. its unsure how patients level could be so low. Suspect maybe patient did not receive a dose/ full dose. Will increase dose as level is low to 1250 mg Q12H and get a level after 2 doses. next level 05/20 @0700
[2023-05-19 08:55] LABS: Alanine Aminotransferase 199 U/L (0-31); Alkaline Phosphatase 50 U/L (39-117); Aspartate Amino Transferase 160 U/L (5-31); Bilirubin Direct 0.2 mg/dL (0.0-0.5); Bilirubin Total 0.3 mg/dL (0.0-1.0); Total Protein 6.4 g/dL (6.5-8.0)
[2023-05-19] MEDS: 0.9 % Sodium Chloride Flush 3 ML SYRINGE IVFLUSH ×2 (09:06→22:59)
[2023-05-19] MEDS: methADONE HCl 20 MG/2 ML ORAL.CONC 30 MG PO (09:06)
[2023-05-19] MEDS: vancomycin HCL 1,250 MG in 0.9 % Sodium Chloride 250 ML 166.67 MG IV ×2 (09:07→20:29)
[2023-05-19] MEDS: hydrOXYzine HCL 50 MG TABLET PO ×2 (12:35→23:05)
[2023-05-19] MEDS: methADONE HCl 20 MG/2 ML ORAL.CONC 10 MG PO (12:35)
--- NOTE | 2023-05-19 13:15 | PC.NURSE ---
Reached out to ortho for dsg change because wound RN not in today. Ortho stated nursing is able to pull packing and just put a clean dressing over the top. Splint with layo wrap for comfort. Will medicate pt for pain and complete dressing change. Plan of care ongoing.
--- NOTE | 2023-05-19 15:15 | HO.SKINPHOTO ---
Left hand s/p I & D of abscess photo obtained 05/19/23 @ [id number] dressing changed per MD order.
--- NOTE | 2023-05-19 15:27 | MHC.RECOVRN ---
Met with pt to follow up and provide support. Pt sitting in bed, awake, alert, easily engages in conversation. Pt reports continued withdrawal symptoms including diaphoresis, hot/cold flashes, and anxiety. Pt educated on methadone prn available as well as hydroxyzine, pt agreeable to both medications. Pt is interested in [facility] level of care, referral will be sent to [facility]. Pt denies other questions or concerns at this time. Pts RN aware of medication request.
[2023-05-19 15:28] VITALS: BP 109/55; PULSE 67; RESP 18; TEMP 36.5; O2SAT 96
--- NOTE | 2023-05-19 15:58 | HO.PM.IMPN ---
Subjective Subjective Date of Service: 05/19/23 Interval History: Left hand swelling/cellulitis Review of Systems left hand is wrapped no fever or chills or nausea or vomiting Physical Exam Vital Signs: Vital Signs: Last Vital Signs Temp 97.7 F 05/19/23 15:28 Pulse 67 05/19/23 15:28 Resp 18 05/19/23 15:28 BP 109/55 L 05/19/23 15:28 Pulse Ox 96 05/19/23 15:28 O2 Del Method Room Air 05/19/23 15:28 BMI result Body Mass Index 21.2 Appearance: Alert.? Oriented X3.? not in distress.? cvs: rrr, [id number] , no murmur res: clear to auscultation ,no rhonchii or wheezing abd: no rebound or guarding ,nt, bs present. ext pulses present , no cyanosis left hand -wrapped . neuro: axo3 , nonfocal. Objective Data Active Medications Acetaminophen (Acetaminophen 325 Mg Tablet) 975 mg PO Q6H PRN PRN Reason: Fever Last Admin: 05/18/23 12:58 Dose: 975 mg Documented By: MISTI Clonidine HCl (Clonidine Hcl 0.1 Mg Tablet) 0.1 mg PO TID PRN; Protocol PRN Reason: anxiety/restlessness Last Admin: 05/19/23 02:01 Dose: 0.1 mg Documented By: REYNALDO Hydroxyzine HCl (Hydroxyzine Hcl 50 Mg Tablet) 50 mg PO Q8H PRN PRN Reason: Anxiety Last Admin: 05/19/23 12:35 Dose: 50 mg Documented By: FRANK Piperacillin Sod/Tazobactam (Sod 3.375 gm/ Sodium Chloride) 50 mls @ 100 mls/hr IV Q8H [facility] Last Infusion: 05/19/23 14:08 Dose: Infused Documented By: FRANK Vancomycin HCl 1,250 mg/ (Sodium Chloride) 250 mls @ 166.667 mls/hr IV Q12H [facility] Last Infusion: 05/19/23 12:23 Dose: Infused Documented By: FRANK Methadone HCl (Methadone Hcl 20 Mg/2 Ml Oral.Conc) 30 mg PO DAILY [facility] Last Admin: 05/19/23 09:06 Dose: 30 mg Documented By: FRANK Methadone HCl (Methadone Hcl 20 Mg/2 Ml Oral.Conc) 10 mg PO DAILY PRN PRN Reason: Opiate Withdrawal Last Admin: 05/19/23 12:35 Dose: 10 mg Documented By: FRANK Oxycodone HCl (Oxycodone Hcl Immed Release 5 Mg Tablet) 5 mg PO Q6H PRN PRN Reason: Pain, Severe (Pain Scale 7-10) Last Admin: 05/19/23 13:22 Dose: 5 mg Documented By: FRANK Pharmacy Consult (Consult Rx Vancomycin Dosing) 1 each MISCELLANE DAILY PRN PRN Reason: Consult order Pharmacy Consult (Consult Rx Vancomycin Dosing) 1 each MISCELLANE DAILY PRN PRN Reason: Consult order Sodium Chloride (0.9 % Sodium Chloride Flush 3 Ml Syringe) 3 ml IVFLUSH [facility] Last Admin: 05/19/23 09:06 Dose: 3 ml Documented By: FRANK Labs 05/18/23 05:27 05/19/23 07:11 Labs: Laboratory Results - last 24 hr 05/19/23 07:11 Estim Creat Clear Calc 131.4 Estimated GFR > 60 Total Bilirubin 0.3 Direct Bilirubin 0.2 AST 160 H ALT 199 H Alkaline Phosphatase 50 Total Protein 6.4 L Albumin 3.0 L Random Vancomycin 3.1 L Microbiology Microbiology Results: Microbiology 05/17/23 20:28 Blood Culture - Preliminary Blood - Venous No growth after 24 hours. 05/17/23 19:52 Blood Culture - Preliminary Blood - Venous No growth after 24 hours. Assessment and Plan (1) Elevated WBC count: Status: Acute (2) Abscess of hand: Status: Acute Plan 33 years old woman admitted with: Left hand cellulitis and abscess, s/p I&D (20 ml). no fever,leucocytosis resolved. Blood and abscess cultures were obtained and sent for analysis- will follow results. Continue IV antibiotic therapy with vancomycin and Zosyn,Pain control as needed. Ortho consult-packing pulled and new packing placed , ortho follow up tomorrow. Elevated transaminases. (alk phos and total bilirubin are normal). Check total CK normal , hepatitis B and hepatitis C viral-pending LFTs trending down. 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 Quality Stroke Does the patient have a stroke diagnosis?: No VTE Prior VTE?: No VTE Risk Level:: Medical - low VTE Device Contraindication: N/A - Device Ordered VTE Drug Contraindication: Treatment Not Indicated
[2023-05-19 19:26] VITALS: BP 156/87; PULSE 85; RESP 18; TEMP 36.3; O2SAT 100
[2023-05-19] MEDS: Acetaminophen 325 MG TABLET 975 MG PO (23:05)
[2023-05-20 03:36] VITALS: BP 129/76; PULSE 65; RESP 16; TEMP 36.2; O2SAT 98
[2023-05-20] MEDS: Piperacillin Sodium/Tazobactam 3.375 GM in 0.9 % Sodium Chloride 50 ML IV ×3 (03:36→19:41)
[2023-05-20 07:18] VITALS: BP 109/64; PULSE 58; RESP 16; TEMP 36.4; O2SAT 96
[2023-05-20 07:18] LABS: Vancomycin Random 12.3 mcg/mL (15-20)
[2023-05-20 07:19] LABS: Estimated Glomerular Filt Rate > 60
--- NOTE | 2023-05-20 08:16 | P.PNIM_ITS ---
Subjective Subjective Date of Service: 05/20/23 Interval History: hand cellulitis Review of Systems hand pain seems imporving no fever or chills Physical Exam 2 Vital Signs: Vital Signs: Last Vital Signs Temp 97.6 F 05/20/23 07:18 Pulse 58 05/20/23 07:18 Resp 16 05/20/23 07:18 BP 109/64 05/20/23 07:18 Pulse Ox 96 05/20/23 07:18 O2 Del Method Room Air 05/20/23 07:18 BMI result Body Mass Index 21.2 Appearance: Alert.? Oriented X3.? not in distress.? cvs: rrr, [id number] , no murmur res: clear to auscultation ,no rhonchii or wheezing abd: no rebound or guarding ,nt, bs present. ext pulses present , no cyanosis left hand -wrapped . neuro: axo3 , nonfocal. Objective Data Active Medications Acetaminophen (Acetaminophen 325 Mg Tablet) 975 mg PO Q6H PRN PRN Reason: Fever Last Admin: 05/19/23 23:05 Dose: 975 mg Documented By: ANU Clonidine HCl (Clonidine Hcl 0.1 Mg Tablet) 0.1 mg PO TID PRN; Protocol PRN Reason: anxiety/restlessness Last Admin: 05/19/23 23:05 Dose: 0.1 mg Documented By: ANU Hydroxyzine HCl (Hydroxyzine Hcl 50 Mg Tablet) 50 mg PO Q8H PRN PRN Reason: Anxiety Last Admin: 05/19/23 23:05 Dose: 50 mg Documented By: ANU Piperacillin Sod/Tazobactam (Sod 3.375 gm/ Sodium Chloride) 50 mls @ 100 mls/hr IV Q8H [facility] Last Infusion: 05/20/23 04:13 Dose: Infused Documented By: ANU Vancomycin HCl 1,000 mg/ (Sodium Chloride) 270 mls @ 270 mls/hr IV Q8H [facility] Methadone HCl (Methadone Hcl 20 Mg/2 Ml Oral.Conc) 10 mg PO DAILY PRN PRN Reason: Opiate Withdrawal Last Admin: 05/19/23 12:35 Dose: 10 mg Documented By: FRANK Methadone HCl (Methadone Hcl 20 Mg/2 Ml Oral.Conc) 40 mg PO DAILY [facility] Oxycodone HCl (Oxycodone Hcl Immed Release 5 Mg Tablet) 5 mg PO Q6H PRN PRN Reason: Pain, Severe (Pain Scale 7-10) Last Admin: 05/19/23 20:01 Dose: 5 mg Documented By: SAMMY Pharmacy Consult (Consult Rx Vancomycin Dosing) 1 each MISCELLANE DAILY PRN PRN Reason: Consult order Pharmacy Consult (Consult Rx Vancomycin Dosing) 1 each MISCELLANE DAILY PRN PRN Reason: Consult order Sodium Chloride (0.9 % Sodium Chloride Flush 3 Ml Syringe) [facility] Last Admin: 05/19/23 22:59 Dose: 3 ml Documented By: JOHNQC Labs 05/18/23 05:27 05/20/23 06:51 Labs: Laboratory Results - last 24 hr 05/19/23 05/20/23 07:11 06:51 Hold Purple Top SEE NOTE Estim Creat Clear Calc 112.0 Estimated GFR > 60 Total Bilirubin 0.3 Direct Bilirubin 0.2 AST 160 H ALT 199 H Alkaline Phosphatase 50 Total Protein 6.4 L Albumin 3.0 L Random Vancomycin 12.3 L Microbiology Microbiology Results: Microbiology 05/17/23 20:28 Blood Culture - Preliminary Blood - Venous No growth after 48 hours. 05/17/23 19:52 Blood Culture - Preliminary Blood - Venous No growth after 48 hours. Assessment and Plan (1) Elevated WBC count: Status: Acute (2) Abscess of hand: Status: Acute Plan 33 years old woman admitted with: Left hand cellulitis and abscess, s/p I&D (20 ml). no fever,leucocytosis resolved. Blood and abscess cultures were obtained and sent for analysis- will follow results. Continue IV antibiotic therapy with vancomycin and Zosyn,Pain control as needed. Ortho consult-packing pulled and new packing placed , ortho follow up tomorrow. Elevated transaminases. (alk phos and total bilirubin are normal). Check total CK normal , hepatitis B and hepatitis C viral-pending LFTs trending down. 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 Quality Stroke Does the patient have a stroke diagnosis?: No VTE Prior VTE?: No VTE Risk Level:: Medical - low VTE Device Contraindication: N/A - Device Ordered VTE Drug Contraindication: Treatment Not Indicated
[2023-05-20] MEDS: methADONE HCl 20 MG/2 ML ORAL.CONC 40 MG PO (09:06)
[2023-05-20] MEDS: oxyCODONE HCl Immed Release 5 MG TABLET PO (09:06)
[2023-05-20] MEDS: 0.9 % Sodium Chloride Flush 3 ML SYRINGE IVFLUSH ×2 (09:50→16:18)
[2023-05-20] MEDS: vancomycin HCL 1,000 MG in 0.9 % Sodium Chloride 250 ML 270 MG IV ×2 (09:52→16:30)
--- NOTE | 2023-05-20 11:27 | HO.WOUND ---
Wound Consult: Initial 33yr old?F admitted to [facility] on 05/17/23 - See progress notes and H&P for detailed history.? Wound consult placed for Left Hand s/p I&D of Abscess.? Patient agreeable to assessment and photo documentation.? Left hand assessed - appears improved compared to photo from admission - fingers are warm denies numbness and tingling - appears to have full ROM to all fingers and thumb. Ring is able to turn full circumfrence of finger unable to advance past knuckle but does not appear to be impacting blood flow at this time. Left Hand Etiology: ??S/p I& D of Abscess Measurements: 0.5cm x 0.4cm x unable to probe full depth of wound - per pt - +0.5cm Wound Bed: unable to visalize Drainage / Odor: Dark red drainage - no purulence noted Edges: ? unattached Siria wound: ?Red erythema - resolving swelling noted - Mild Induration, Mild Fluctuance noted Pain: Reports significant pain Goals of Treatment: ? Lightly pack with Hydrofiber for antimicrobial properties and moisture management Recommendations: 1. Left Hand - Elevate left hand on pillow. Cleanse with NS - irrigate with NS if patient allows. Pat dry. Apply skin prep barrier wipe to periwound, lightly pack wound bed with cut strip of Hydrofiber - Durafiber AG be sure to leave a wick for easy removal, cover with ABD pad, gauze wrap. Change Daily while inpatient. Of note Hydrofibers and Alginates may stay in place up to 5-7 days. At time of discharge patient may continue with current treatment and perform changes every other day. Re-consult wound care Nurse for wound deterioration or wound changes.
[2023-05-20 14:13] LABS: HCV Log PCR 5.58 Log IU/mL (NOT DETECTED); HepC Viral Load 377000 IU/mL (NOT DETECTED)
[2023-05-20 15:06] VITALS: BP 128/77; PULSE 61; RESP 16; TEMP 36.8; O2SAT 93
--- NOTE | 2023-05-20 15:08 | MHC.RECOVRN ---
Addendum entered by Haily Branch 05/20/23 16:08: Pt reporting sweating, hot/cold flashes, interested in additional methadone. RN aware, 10 mg prn to be administered. Pt would like to continue methadone titration. Depending in dc plan, referral may be sent to [facility] in [place] or [facility]. Will continue to follow. Original Note: Completed referral packet with pt, sent to [facility] for [facility] level of care. [facility] intake informed t/w pt could not be on the waitlist due to not having insurance. [facility] informed referral was placed for financial counseling to meet with pt during admission.
[2023-05-20] MEDS: methADONE HCl 20 MG/2 ML ORAL.CONC 10 MG PO (16:16)
[2023-05-20] MEDS: hydrOXYzine HCL 50 MG TABLET PO (16:17)
[2023-05-20 19:02] VITALS: BP 130/62; PULSE 71; RESP 18; TEMP 36.4; O2SAT 98
--- NOTE | 2023-05-20 22:55 | PM.EVENT ---
Event Note Date of Service: 05/20/23 Event Note: Nursing found patient with an unknown needle at bedside which she was attempting to inject near her IV access. Unknown substance, though patient has significant recent history IVDU and heroin use. Patient says needle came from her purse but refused to divulge contents. Patient then wanted to leave AMA. Patient was hospitalized for left hand cellulitis and abscess, treated with vanc and Zosyn. Discussed with the patient the seriousness of her condition and complications that could arise from leaving AMA, up to and including severe sepsis and . Patient acknowledged understanding and stated she was willing to accept those risks, and signed AMA paperwork. Patient arranged for a ride to pick her up. Security was called and escorted her out of the facility. Time Spent With Patient Time: Total time managing care of this patient today ____ minutes.
--- NOTE | 2023-05-20 23:09 | P.CNID_ITS ---
History of Present Illness Data of Consult Service Date: 05/20/23 Requesting physician: Zackery Moore Primary Care Provider: Unknown Physician HPI Reason for consult: left hand infection She presents with left hand swelling and pain and redness. She missed shooting up. She notes she has Hepatitis C. Review of Systems 2 Review of Systems: Yes all other systems are reviewed and are negative PMFSH Past Medical History Medical History Intravenous drug abuse Family History Family history: reviewed and not pertinent Social History Social History Household Members: Other Housing: Apartment Do you presently have visiting nurse or other home services: No Patient Tobacco Use Status: Former Tobacco user Second Hand Smoke Exposure: No Substance Use Type: Crack/Cocaine and Heroin service: No Meds Allergies Allergy/AdvReac Type Severity Reaction Status Date / Time No Known Allergies Allergy Verified 05/17/23 18:26 Active Medications: Current Medications Acetaminophen (Acetaminophen 325 Mg Tablet) 975 mg PO Q6H PRN PRN Reason: Fever Last Admin: 05/19/23 23:05 Dose: 975 mg Clonidine HCl (Clonidine Hcl 0.1 Mg Tablet) 0.1 mg PO TID PRN; Protocol PRN Reason: anxiety/restlessness Last Admin: 05/19/23 23:05 Dose: 0.1 mg Hydroxyzine HCl (Hydroxyzine Hcl 50 Mg Tablet) 50 mg PO Q8H PRN PRN Reason: Anxiety Last Admin: 05/20/23 16:17 Dose: 50 mg Piperacillin Sod/Tazobactam (Sod 3.375 gm/ Sodium Chloride) 50 mls @ 100 mls/hr IV Q8H WILLEM Last Infusion: 05/20/23 20:29 Dose: Infused Vancomycin HCl 1,000 mg/ (Sodium Chloride) 270 mls @ 270 mls/hr IV Q8H WILLEM Last Infusion: 05/20/23 17:43 Dose: Infused Methadone HCl (Methadone Hcl 20 Mg/2 Ml Oral.Conc) 10 mg PO DAILY PRN PRN Reason: Opiate Withdrawal Last Admin: 05/20/23 16:16 Dose: 10 mg Methadone HCl (Methadone Hcl 20 Mg/2 Ml Oral.Conc) 40 mg PO DAILY WILLEM Last Admin: 05/20/23 09:06 Dose: 40 mg Oxycodone HCl (Oxycodone Hcl Immed Release 5 Mg Tablet) 5 mg PO Q6H PRN PRN Reason: Pain, Severe (Pain Scale 7-10) Last Admin: 05/20/23 09:06 Dose: 5 mg Oxycodone HCl (Oxycodone Hcl Immed Release 5 Mg Tablet) 10 mg PO DAILY [facility] Pharmacy Consult (Consult Rx Vancomycin Dosing) 1 each MISCELLANE DAILY PRN PRN Reason: Consult order Pharmacy Consult (Consult Rx Vancomycin Dosing) 1 each MISCELLANE DAILY PRN PRN Reason: Consult order Sodium Chloride (0.9 % Sodium Chloride Flush 3 Ml Syringe) 3 ml IVFLUSH QSHIFT [facility] Last Admin: 05/20/23 16:18 Dose: 3 ml Home Medications Medication Instructions Recorded Confirmed Last Taken Type No Known Home Meds 05/18/23 05/18/23 Unknown History Physical Exam 2 Vital Signs: Vital Signs: Last Vital Signs Temp 97.5 F 05/20/23 19:02 Pulse 71 05/20/23 19:02 Resp 18 05/20/23 19:02 BP 130/62 05/20/23 19:02 Pulse Ox 98 05/20/23 19:02 O2 Del Method Room Air 05/20/23 19:02 BMI result Body Mass Index 21.2 Extrem: Other: left hand redness/swelling Results Labs 05/18/23 05:27 05/20/23 06:51 Labs: BMP 05/20/23 06:51 Creatinine 0.68 Microbiology Microbiology Results: Microbiology 05/17/23 20:28 Blood - Venous Blood Culture - Preliminary No growth after 48 hours. 05/17/23 19:52 Blood - Venous Blood Culture - Preliminary No growth after 48 hours. Assessment and Plan (1) Elevated WBC count: Qualifiers: Leukocytosis type: unspecified Qualified Code(s): D72.829 - Elevated white blood cell count, unspecified Status: Acute (2) Drug abuse, IV: Status: Acute (3) Abscess of hand: Status: Acute There is possible staph or strep She may have MRSA Plan Would continue Vancomycin. Do not need Zosyn at this time. Follow up Hepatitis C viral load Check HIV Probable po Doxycycline if blood cultures negative 10 days,
--- NOTE | 2023-05-20 23:17 | PC.NURSE ---
This RN went to assess the pt, pt AXOx4. When entering the pt's room, this RN found an used needle under the pt's leg. This RN asked the pt where she got the needle and the pt said she got it from her purse. This RN asked the pt if she was using and the pt said yes and showed where she using the needle which was at her IV site. This RN took the used needle from the pt and assess the pt's arm. Pt stated she wants to leave AMA and this RN tried to educate the pt the risks of leaving AMA. This RN notified the nursing recreation facilities supervisor, LURDES Pizano, and the security about the situation. Afterwards, pt came out of the room upset and wanting to leave AMA right away. Security redirected the pt to go wait in the room for the MD to come talk to her about the situation. LURDES Pizano and security at pt's bedside. LURDES Pizano went over the risks of leaving AMA and the pt was aware of the risks of leaving AMA. This RN removed the IV from the pt's arm. Pt escorted off the unit with security.
--- NOTE | 2023-05-21 11:23 | PM.DS ---
DS: Providers Provider Date of Service: 05/20/23 Date of admission: 05/17/23 22:10 Date of discharge: 05/20/23 Primary care physician: Unknown Physician Consults: 05/17/23 21:25 Consult to Orthopedics Stat Consulting Provider[place] [facility] [facility] Reason for consultation: L hand abscess/infection IVDA Has provider been notified: Yes 05/18/23 08:52 Addiction Medicine Routine Consulting Provider: Addiction Covering Reason for consultation: heroine use Has provider been notified: No 05/19/23 07:31 Consult to Wound Care Routine Reason for consultation: left hand abscess, pull packing, redress, splint for comfort 05/19/23 08:08 Consult to Wound Care Routine Reason for consultation: right hand cellulitis/wound 05/19/23 15:59 Consult to Infectious Diseases Routine Consulting Provider[place] [facility] [place] [facility] Reason for consultation: hand clelulitis ,ivdu ,also possible hepatitis c Has provider been notified: No Attending physician on discharge: Zackery Moore Discharging clinician: Zackery Moore DS: Diagnosis Discharge Diagnosis (1) Elevated WBC count: Status: Acute (2) Drug abuse, IV: Status: Acute (3) Abscess of hand: Status: Acute DS: Summary Hospital Course Hospital Course: 33 years old woman with past medical history significant for IVDU presents to the emergency department complaining of left had swelling, redness and pain that has been getting worse over the last 6 days. Prior to these symptoms she injected the dorsum of the hand with heroin but she missed the vein. She denies any headache, nausea, vomiting, fevers chills. She denies any cardiopulmonary, gastrointestinal or genitourinary symptoms. She expressed that she would like to start rehab and hopefully stop using illegal drugs. In the ED, she was found to have stable vital signs. Blood workup was remarkable for leukocytosis of 13.1 and elevated CRP. AST and ALT elevated. Total bilirubin and alk-phos are normal. There is no lactic acidosis. test was negative. Blood cultures were obtained. Left hand x-ray showed soft tissue swelling at the dorsum of the hand without acute osseous abnormalities. ED tx: Vancomycin 1250 mg IV, Zosyn 3.375 g IV, lorazepam 1 mg p.o. x1, NS 1 L bolus, morphine 4 mg. I&D was performed, removing abundant quantity of purulent fluid and sent for analysis. Hospital course: Patient was admitted forLeft hand cellulitis and abscess- found to have leukocytosis, Blood cultures sent, hand x-ray:Soft tissue swelling at the dorsum of the hand. No acute osseous abnormality: Patient is started on IV antibiotics, seen by surgery, abscess 's I&D done-leukocytosis seems to be resolved, patient is somewhat improving: But patient decided to leave against medical advice yesterday-risks of leaving against medical advice explained to her(please see event note from yesterday.): Antibiotics sent to her pharmacy-doxycycline 100 mg p.o. b.i.d. for 10 days. Patient has history of IV drug use: Has mild elevated LFTs, hepatitis-C reactive and viral load elevated: Patient is to follow-up out patiently, also consider HIV testing out patiently. plan: Time Attestation Discharge coordination time: Greater than 30 minutes Quality: Safe Use of Opioids Does Pt have an Active Cancer Diagnosis on the Problem List?: No Quality: Stroke Does the patient have a stroke diagnosis?: No Physical Exam Vital Signs: Vital Signs: Last Vital Signs Temp 97.5 F 05/20/23 19:02 Pulse 71 05/20/23 19:02 Resp 18 05/20/23 19:02 BP 130/62 05/20/23 19:02 Pulse Ox 98 05/20/23 19:02 O2 Del Method Room Air 05/20/23 19:02 BMI result Body Mass Index 21.2 left ama please see my progress note 05/20/23 DS: Data Data Completed and Pending Labs on day of discharge: Laboratory Results - last 24 hr 05/18/23 05:27 Hep C Viral Load [id number] H Hep C Viral Load Log 5.58 H Preliminary micro results at discharge 05/17/23 20:28 Blood Culture - Preliminary Blood - Venous No growth after 48 hours. 05/17/23 19:52 Blood Culture - Preliminary Blood - Venous No growth after 48 hours. Imaging Chest x-ray: Radiologist's impression: ITS Impressions Hand X-Ray 05/17/23 18:39 IMPRESSION: Soft tissue swelling at the dorsum of the hand. No acute osseous abnormality. Discharge Plan Discharge Patient Disposition: Left Against Medical Advice Discharge Diagnosis: hand cellulitis, heaptitis C Referrals: Physician,Unknown J [Primary Care Provider] - 1 Week Discharge Medications: New doxycycline hyclate 100 mg capsule 100 mg PO BID Qty: 20 0RF No Action No Known Home Meds Discharge Orders: Discharge Order (Routine); Ordered 05/21/23 Ordered By: Zackery Moore Diet: Advance to usual diet Activity on Discharge: As tolerated Activity Restrictions/Additional Instructions: Topical Wound Care Recommendations Left Hand - Elevate left hand on pillow. Cleanse with NS - irrigate with NS if patient allows. Pat dry. Apply skin prep barrier wipe to periwound, lightly pack wound bed with cut strip of Hydrofiber - Durafiber AG be sure to leave a wick for easy removal, cover with ABD pad, gauze wrap. Change Daily while inpatient. Of note Hydrofibers and Alginates may stay in place up to 5-7 days. At time of discharge patient may continue with current treatment and perform changes every other day. Care Plan Goals: Patient was admitted forLeft hand cellulitis and abscess- found to have leukocytosis, Blood cultures sent, hand x-ray:Soft tissue swelling at the dorsum of the hand. No acute osseous abnormality: Patient is started on IV antibiotics, seen by surgery, abscess 's I&D done-leukocytosis seems to be resolved, patient is somewhat improving: But patient decided to leave against medical advice yesterday-risks of leaving against medical advice explained to her(please see event note from yesterday.): Antibiotics sent to her pharmacy-doxycycline 100 mg p.o. b.i.d. for 10 days. Patient has history of IV drug use: Has mild elevated LFTs, hepatitis-C reactive and viral load elevated: Patient is to follow-up out patiently, also consider HIV testing out patiently Health Concerns: As above. Plan of Treatment: As above. Assessment: As above. Discharge Date/Time: 05/20/23 22:50
== END 2023-05-20 22:50 | disposition left against medical advice (07) | DRG 603 ==
LOC: HO.ED 21:25 → HO.EDOVER 22:16 → HO.S3 05-18 14:47
PROVIDERS: Physician Assistant Medical; Admitting Provider Internal Medicine; Emergency Provider Emergency Medicine; Visit Provider Internal Medicine
DX: L02.512 Cutaneous abscess of left hand (principal); L03.114 Cellulitis of left upper limb; F11.10 Opioid abuse, uncomplicated; B19.20 Unspecified viral hepatitis C without hepatic coma; E87.6 Hypokalemia; Z23 Encounter for immunization; Z87.891 Personal history of nicotine dependence
CPT/HCPCS: 36415; 73130; 80053; 80076; 80202; 82550; 82565; 83605; 83735; 84132; 84702; 85025; 85652; 86140; 86706; 86803; 87040; 87340; 87522; 90686; 99285; J1885; J2270; J2543; J3370; J3371

== ENCOUNTER → 2023-05-17 22:10 | Outpatient (BNV) | payer SELFPAY | PROVIDERS: Admitting Provider Internal Medicine; Emergency Provider Emergency Medicine; Visit Provider Internal Medicine | DX: D72.829 Elevated white blood cell count, unspecified (principal); F19.10 Other psychoactive substance abuse, uncomplicated; L02.519 Cutaneous abscess of unspecified hand | CPT/HCPCS: 99222 ==

== ENCOUNTER → 2023-05-17 22:10 | Outpatient (BNV) | payer SELFPAY | PROVIDERS: Admitting Provider Internal Medicine; Emergency Provider Emergency Medicine; Visit Provider Physician Assistant | DX: L02.512 Cutaneous abscess of left hand (principal) | CPT/HCPCS: 99221; 99231; 99499 ==

== ENCOUNTER → 2023-05-17 22:10 | Outpatient (BNV) | payer SELFPAY | PROVIDERS: Admitting Provider Internal Medicine; Emergency Provider Emergency Medicine; Visit Provider Internal Medicine | DX: F19.10 Other psychoactive substance abuse, uncomplicated (principal); L02.519 Cutaneous abscess of unspecified hand; D72.829 Elevated white blood cell count, unspecified | CPT/HCPCS: 99222; 99231; 99232; 99239; 99499 ==

== ENCOUNTER 2024-11-23 23:05 | Inpatient (IN) | payer MEDICAID, SELFPAY ==
--- NOTE | ~2024-11-23 | US_ITS ---
EXAMINATION: US EXTREMITY, NONVASCULAR CLINICAL INFORMATION: Right hand cellulitis, rule out abscess. COMPARISON: No prior ultrasound. Radiographs of the right wrist earlier same day. TECHNIQUE: Real-time grayscale and color Doppler ultrasound imaging of the area of interest in the dorsum of the right hand was performed. FINDINGS: There is hyperemia and swelling of the dorsum of the right and in the region of interest. There is a lentiform thin fluid collection in the subcutaneous soft tissues with surrounding hyperemia measuring approximately 2.8 x 0.4 x 2.4 cm, consistent with a small linear abscess collection. This may or may not be amenable to percutaneous drainage, due to small size. No additional abnormality. US/US Extremity Nonvas Limited RT IMPRESSION: 1. Soft tissue swelling of the dorsum of the right hand in the area of interest, with a subcutaneous thin lentiform complex fluid collection measuring 2.8 x 0.4 x 2.4 cm. This may or may not be amenable to percutaneous drainage. Electronically signed by: Josh Christianson MD 11/24/2024 12:20 PM EDT
--- NOTE | ~2024-11-23 | XR_ITS ---
EXAMINATION: XR CHEST CLINICAL INFORMATION: PICC LINE PLACEMENT COMPARISON: None available. TECHNIQUE: Frontal view of the chest was obtained. FINDINGS: Left-sided PICC line is curled in the axilla and then again curled in the subclavian region, with the tip terminating just above the clavicle. The cardiac, hilar, and mediastinal contours are normal. The lungs are clear bilaterally. No pneumothorax or effusion. No focal osseous or soft tissue abnormality. XR/XR chest 1V IMPRESSION: 1. Malpositioned left-sided PICC catheter as detailed. 2. No active pulmonary disease. Electronically signed by: Josh Christianson MD 11/29/2024 04:19 PM EDT
--- NOTE | ~2024-11-23 | XR_ITS ---
CLINICAL HISTORY: fever 1 view chest x-ray Comparison: None provided Findings: No consolidation or effusion. Heart size is normal. No acute fracture. IMPRESSION: 1. No acute findings. This document has been electronically signed by: Duncan Moon MD on 11/24/2024 01:31:06
--- NOTE | ~2024-11-23 | XR_ITS ---
CLINICAL HISTORY: infecion, 4 view right wrist Comparison: None provided Findings: Bones intact. No dislocations. No radiopaque foreign body. No soft tissue gas or radiographic evidence of osteomyelitis. IMPRESSION: 1. No acute findings This document has been electronically signed by: Samina Hernandez MD on 11/24/2024 01:04:21
[2024-11-23 23:15] VITALS: BP 124/86; BP 133/80; PULSE 126; PULSE 90; RESP 19; TEMP 39.6; O2SAT 90; O2SAT 96; BMI 21.0
--- NOTE | 2024-11-23 23:33 | ED.GENADULT ---
HPI - General Adult General Chief complaint: General Medical Stated complaint: Substance use Time Seen by Provider: 11/23/24 23:15 Source: patient History of Present Illness HPI narrative: 34 year old female with pmhx of asthma, hep c, and substance abuse who presents to the ED for substance use. She states she did 3 bags of heroin via IV today. She complains of hand swelling and pain. She states I missed and it went into my hand . She states the pain is from her fingertips to just above the elbow. She reports going to [facility] today for antibiotics for a UTI but the prescription was on hold due to insurance. Patient states she has had dysuria for 4 days. Denies fever, nausea, vomiting or back pain. Related Data Home Medications ?Medication ?Instructions ?Recorded ?Confirmed No Known Home Meds 05/18/23 05/18/23 Allergies Allergy/AdvReac Type Severity Reaction Status Date / Time No Known Allergies Allergy Verified 11/23/24 23:22 Review of Systems Review of Systems: Yes all other systems are reviewed and are negative Constitutional: Constitutional: Denies fatigue and Denies fever(s) Cardiovascular: Cardiovascular: Denies chest pain at rest Respiratory: Respiratory: Denies cough Gastrointestinal: Gastrointestinal: Denies abdominal pain, Denies nausea and Denies vomiting Genitourinary: Genitourinary: Reports dysuria Musculoskeletal: Musculoskeletal: Reports back pain, Reports arthralgias and Reports joint swelling Endocrine: Endocrine: Denies fatigue PMFSH Past Medical History Attestation statement: The following information was validated with the patient. Medical History Intravenous drug abuse Social History Social History Household Members: Other Housing: Apartment Do you presently have visiting nurse or other home services: No Patient Tobacco Use Status: Former Tobacco user Second Hand Smoke Exposure: No Substance Use Type: Crack/Cocaine and Heroin Advance Directives: No Advance Directives Information Provided: Yes service: No Physical Exam ED Vital Signs: Vital Signs - 24 hr 11/23/24 23:15 11/23/24 23:56 11/24/24 00:11 Temperature 103.3 F H Pulse Rate 126 H 103 H 98 Respiratory Rate 19 15 19 Blood Pressure 133/80 105/42 L 101/44 L Pulse Oximetry 90 L 95 97 Oxygen Delivery Method Room Air Room Air Room Air Oxygen Flow Rate 11/24/24 00:29 11/24/24 00:29 11/24/24 00:50 Temperature 99.9 F 99.9 F 99.9 F Pulse Rate 100 94 Respiratory Rate 20 18 Blood Pressure 109/45 L 100/42 L Pulse Oximetry 98 97 Oxygen Delivery Method Nasal Cannula Room Air Oxygen Flow Rate 1 11/24/24 01:26 11/24/24 01:41 Temperature 99.0 F 99.2 F Pulse Rate 89 88 Respiratory Rate 20 18 Blood Pressure 103/55 L 108/53 L Pulse Oximetry 96 95 Oxygen Delivery Method Room Air Room Air Oxygen Flow Rate BMI result Body Mass Index 21.0 Const Other: Awake, appears older than stated age Orientation/consciousness: patient oriented x3 Eyes Other: Pinpoint pupil Resp Effort & Inspection: normal respiratory effort Cardio Other: Normal peripheral perfusion Skin Other: Neuro General: patient oriented x3, gait normal, no focal motor deficits and CN's II-XI intact bilaterally Extrem Other: The right hand is swollen with overlying erythema, that is spans over the wrist, there is an area of violaceous coloration, the skin may slough, it is over the dorsum of the thumb, no fluctuance, patient able to flex and extend from the wrist acoustic intelligence specialist strength is intact Psych Other: Cooperative here in the emergency room Course Reevaluation(s) Reevaluation #1: At midnight on November 24, a sepsis focused exam was performed, in addition to labs blood cultures and lactic acid were obtained. The patient received weight based IV fluid therapy, Tylenol and empiric antibiotic Time: 00:01 Medications Administered Generic Name Dose Route Start Last Admin Trade Name Freq PRN Reason Stop Dose Admin Enoxaparin Sodium 40 mg 11/24/24 03:30 11/24/24 03:59 Enoxaparin Sodium 40 Mg/0.4 Ml Syringe SUBCUT 40 mg Q24H WILLEM Administration Hydromorphone HCl 0.5 mg 11/24/24 03:23 11/24/24 04:00 Hydromorphone Hcl 1 Mg/Ml Syringe IVPUSH 0.5 mg Q4H PRN Administration Pain, Severe (Pain Scale 7-10) Protocol Vancomycin HCl 1,500 mg/ 500 mls @ 333.333 mls/hr 11/24/24 02:57 11/24/24 03:12 Sodium Chloride IV 11/24/24 04:26 333.33 mls/hr ONCE ONE Administration Magnesium Sulfate 2 gm in 50 mls @ 25 mls/hr 11/24/24 03:15 11/24/24 03:59 Magnesium Sulfate/H2o IV 11/24/24 05:14 25 mls/hr ONCE ONE Administration Discontinued Medications Generic Name Dose Route Start Last Admin Trade Name Aashish PRN Reason Stop Dose Admin Ceftriaxone Sodium 2 gm 11/24/24 00:00 11/24/24 00:08 Ceftriaxone Sodium 2 Gm Vial IVPUSH 11/24/24 00:01 2 gm ONCE ONE Administration Acetaminophen 1,000 mg in 100 mls @ 400 mls/hr 11/23/24 23:25 11/24/24 00:20 Ofirmev IV 11/23/24 23:39 Infused ONCE ONE Infusion Sodium Chloride 1,769.01 mls @ 1,769.01 mls/hr 11/23/24 23:32 11/24/24 01:15 Ns 30 ml/kg infuse over 1 hr (1769.01 ml) 11/24/24 00:31 Infused IV Infusion .Q1H STA Midazolam HCl 4 mg 11/23/24 23:25 11/23/24 23:41 Midazolam Hcl 2 Mg/2 Ml Vial IM 11/23/24 23:26 4 mg ONCE ONE Administration Potassium Chloride 40 meq 11/24/24 03:15 11/24/24 03:59 Potassium Chloride Er 20 Meq Tab.Er.Prt PO 11/24/24 03:16 40 meq ONCE ONE Administration Medical Decision Making Medical Decision Making MDM Narrative: 34 year old female with pmhx of asthma, hep c, and substance abuse who presents to the ED for substance use. She states she did 3 bags of heroin via IV today. She complains of hand swelling and pain. She states I missed and it went into my hand . She states the pain is from her fingertips to just above the elbow. She reports going to [facility] today for antibiotics for a UTI but the prescription was on hold due to insurance. Patient states she has had dysuria for 4 days. Denies fever, nausea, vomiting or back pain. Problem: IV drug abuse, hep C History: Per patient I have considered the following differential diagnoses: Sepsis, UTI, cellulitis, purulent cellulitis, septic joint , pneumonia Plan: Patient is a sepsis alert, in addition to screening labs blood cultures and lactic acid were obtained, she we will receive weight based IV fluid therapy, Tylenol, starting ceftriaxone. She states she has a known urinary tract infection, we will collect a urine sample. The source could be her hand. Obtaining an x-ray of the hand to rule out foreign body versus osteomyelitis.. I do not have suspicion for a septic joint she has full range of motion of the wrist and the hand. Adding a chest x-ray to rule out pneumonia. I have independently reviewed the following tests: Labs: Leukocytosis with left shift, not anemic, potassium at 3.1, magnesium at 1.5, no additional electrolyte abnormalities, lactic is 0.9, urine is infected, tox screen positive for opiates, fentanyl, benzodiazepine, cocaine Chest x-ray:Findings: No consolidation or effusion. Heart size is normal. No acute fracture. IMPRESSION: 1. No acute findings. X-ray right hand:Findings: Bones intact. No dislocations. No radiopaque foreign body. No soft tissue gas or radiographic evidence of osteomyelitis. IMPRESSION: 1. No acute findings Lab Data 11/23/24 23:34 11/23/24 23:34 Labs: Lab Results 11/23/24 11/24/24 Range/Units 23:34 03:00 WBC 15.8 H (4.8-10.8) X10*3/uL RBC 3.38 L (4.20-5.50) X10*6/uL Hgb 10.3 L (12.0-16.0) g/dl Hct 29.6 L (37.0-47.0) % MCV 87.6 (80.0-98.0) fL MCH 30.5 (27.0-33.0) pg MCHC 34.8 (31.0-35.0) g/dl RDW 12.9 (11.0-16.0) % Plt Count 264 (160-400) X10*3/uL MPV 8.9 L (9.4-12.3) fL Immature Gran % (Auto) 0.4 (0.0-0.4) % Neut % (Auto) 73.6 H (45-73) % Lymph % (Auto) 15.8 L (20-40) % [place] % (Auto) 8.6 (2-11) % Eos % (Auto) 1.3 (0-4) % Baso % (Auto) 0.3 (0-2) % Lymph # (Auto) 2.5 (1.2-4.9) X10*3/uL [place] # (Auto) 1.4 H (0.1-1.2) X10*3/uL Eos # (Auto) 0.2 (0.0-0.4) X10*3/uL Baso # (Auto) 0.0 (0.0-0.2) X10*3/uL Abs Immat Gran (auto) 0.06 H (0.00-0.03) X10*3/uL Absolute Neuts (auto) 11.7 H (2.0-8.3) x10*3/uL Absolute Nucleated RBC 0.000 (0.0-0.012) X10*3/uL Nucleated RBC % (auto) 0.0 (0.0-0.2) /100WBC Sodium 137 (135-145) mmol/L Potassium 3.1 L D (3.3-5.1) mmol/L Chloride 99 (96-108) mmol/L Carbon Dioxide 28 (22-29) mmol/L Anion Gap 13 (12-20) BUN 10 (9-16) mg/dL Creatinine 0.84 (0.5-1.4) mg/dL Estim Creat Clear Calc 86.1 Estimated GFR > 60 Random Glucose 99 (60-115) mg/dL Lactic Acid 0.9 (0.5-2.0) mmol/L Calcium 8.3 L (8.4-10.2) mg/dL Magnesium 1.5 L (1.6-2.6) mg/dL Total Bilirubin 0.7 (0.0-1.0) mg/dL AST 64 H (5-31) U/L ALT 55 H (0-31) U/L Alkaline Phosphatase 99 (39-117) U/L Total Protein 7.1 (6.5-8.0) g/dL Albumin 4.0 (3.5-5.0) g/dL Beta HCG, Quant < 2 mIU/mL Urine Color Yellow Urine Appearance Cloudy Urine pH 5.5 (5.0-9.0) Ur Specific [place] 1.015 (1.005-1.025) Urine Protein 30 (1+) H (Neg-Trace) mg/dL Urine Glucose (UA) Negative (Negative) mg/dL Urine Ketones Trace (Negative) mg/dL Urine Blood Moderate (2+) H (Negative) Urine Nitrite Positive H (Negative) Ur Leukocyte Esterase Moderate (2+) H (Negative) Urine RBC 6-10 H (0-2) /HPF Urine WBC 6-10 (0-5) /HPF Ur Squamous Epith Cells 6-10 (0-2) /HPF Urine Bacteria 4+ (None Seen) Hyaline Casts 6-10 (0-2) /LPF Salicylates < 5.0 L (15-30) mg/dL Urine Opiates Screen POSITIVE H (Not Detect) Ur Buprenorphine Scrn Not Detected (Not Detect) ng/mL Ur Oxycodone Screen Not Detected (Not Detect) ng/mL Urine Methadone Screen Not Detected (Not Detect) ng/mL Urine Fentanyl Screen POSITIVE H (Not Detect) Acetaminophen < 3 (<30) mcg/mL Ur Barbiturates Screen Not Detected (Not Detect) Ur Phencyclidine Scrn Not Detected (Not Detect) Ur Amphetamines Screen Not Detected (Not Detect) U Benzodiazepines Scrn POSITIVE H (Not Detect) Urine Cocaine Screen POSITIVE H (Not Detect) U Marijuana (THC) Screen Not Detected (Not Detect) Ethyl Alcohol < 10 mg/dL Critical Care Time Critical Care Time Critical Care Time: Yes Total Critical Care Time: 30 Attestation: Paul Kimbrough PA-C have personally performed 30 minutes of critical care time not including lines and procedures; sepsis, need for IV antibiotic therapy, IV Tylenol, IV fluid therapy Discharge Plan Discharge Clinical Impression: Cellulitis of right hand, Drug abuse, IV, Sepsis, Urinary tract infection Patient Disposition: Admitted As Inpatient
[2024-11-23] MEDS: 0.9 % Sodium Chloride 1,769.01 ML 1769.01 ML IV (23:40)
[2024-11-23 23:49] LABS: MANUAL DIFF FLAG NO
[2024-11-23 23:52] LABS: Hematocrit 29.6 % (37.0-47.0); Hemoglobin 10.3 g/dl (12.0-16.0); Imm Gran Abs Auto 0.06 X10*3/uL (0.00-0.03); Imm Gran Pct Auto 0.4 % (0.0-0.4); Lymphocytes Absolute Auto 2.5 X10*3/uL (1.2-4.9); Mean Corpuscular HGB Conc 34.8 g/dl (31.0-35.0); Mean Corpuscular Hemoglobin 30.5 pg (27.0-33.0); Mean Corpuscular Volume 87.6 fL (80.0-98.0); NRBC Abs Auto 0.000 X10*3/uL (0.0-0.012); NRBC Pct Auto 0.0 /100WBC (0.0-0.2); Platelet Count 264 X10*3/uL (160-400); Red Blood Count 3.38 X10*6/uL (4.20-5.50); White Blood Count 15.8 X10*3/uL (4.8-10.8)
[2024-11-23 23:56] VITALS: BP 105/42; PULSE 103; RESP 15; O2SAT 95
[2024-11-24] VITALS (11 sets, daily range): BP systolic 100–156; BP diastolic 42–86; PULSE 78–100; RESP 12–20; TEMP 36.5–37.8; O2SAT 94–99; BMI 21.0
[2024-11-24 00:12] LABS: Acetaminophen LAB < 3 mcg/mL (<30); Salicylate < 5.0 mg/dL (15-30)
[2024-11-24 00:20] LABS: Alanine Aminotransferase 55 U/L (0-31); Albumin Level 4.0 g/dL (3.5-5.0); Alkaline Phosphatase 99 U/L (39-117); Anion Gap 13 (12-20); Aspartate Amino Transferase 64 U/L (5-31); Blood Urea Nitrogen 10 mg/dL (9-16); Calcium 8.3 mg/dL (8.4-10.2); Carbon Dioxide 28 mmol/L (22-29); Chloride 99 mmol/L (96-108); Creatinine Clr Calc Pharmacy 86.1; Estimated Glomerular Filt Rate > 60; Magnesium 1.5 mg/dL (1.6-2.6); Potassium 3.1 mmol/L (3.3-5.1); Sodium 137 mmol/L (135-145); Total Protein 7.1 g/dL (6.5-8.0)
[2024-11-24 03:09] LABS: Appearance Urine Cloudy; Glucose Urine UA Negative (Negative); PH 5.5 (5.0-9.0); Specific Gravity - Urine 1.015 (1.005-1.025); UMIC TRIGGER UACC YES
[2024-11-24 03:17] LABS: Cannabinoid Screen Urine Not Detected (Not Detect)
--- NOTE | 2024-11-24 03:27 | PM.IMHP ---
History of Present Illness Date of Service: 11/24/24 Chief Complaint: hand redness 34-year-old female with a past medical history of IV drug abuse/opiate abuse presented to the hospital today with a chief complaint of right hand pain redness and swelling. Patient mentioned about 2 days ago she injured her right hand since then she has been having redness and swelling. Mentions that she missed her IV line and inject into the hand at the time. Mentioned that she uses heroin regularly and prior to coming to the hospital she used 3 heroin bags. Today she was changed with the police and subsequently ambulance was called and brought her to the hospital for further evaluation. Reports that over the few days she has been having dysuria and was diagnosed with UTI, given antibiotics as outpatient but she could not fill it up due to insurance concerns. Denies any fevers. Denies any chest pain or palpitations. Denies any shortness with the dyspnea on exertion. Review of all other systems is negative except mentioned above ER course: Per ER team, patient noted to have right hand pain redness and swelling; x-ray showed evidence of foreign body; patient able to move her fingers and the wrist without any difficulty; urinalysis abnormal cluster with UTI. Given vancomycin and ceftriaxone. COUNT INCLUDES THE [facility] Medical History Intravenous drug abuse Social History Household Members: Other Housing: Apartment Do you presently have visiting nurse or other home services: No Patient Tobacco Use Status: Former Tobacco user Second Hand Smoke Exposure: No Substance Use Type: Crack/Cocaine and Heroin service: No Meds Allergies Allergy/AdvReac Type Severity Reaction Status Date / Time No Known Allergies Allergy Verified 11/23/24 23:22 Active Medications: Current Medications Enoxaparin Sodium (Enoxaparin Sodium 40 Mg/0.4 Ml Syringe) 40 mg SUBCUT Q24H [facility] Hydromorphone HCl (Hydromorphone Hcl 1 Mg/Ml Syringe) 0.5 mg IVPUSH Q4H PRN; Protocol PRN Reason: Pain, Severe (Pain Scale 7-10) Vancomycin HCl 1,500 mg/ (Sodium Chloride) 500 mls @ 333.333 mls/hr IV ONCE ONE Stop: 11/24/24 04:26 Last Admin: 11/24/24 03:12 Dose: 333.33 mls/hr Magnesium Sulfate (Magnesium Sulfate/H2o) 2 gm in 50 mls @ 25 mls/hr IV ONCE ONE Stop: 11/24/24 05:14 Pharmacy Consult (Consult Rx Vancomycin Dosing) 1 each MISCELLANE DAILY PRN PRN Reason: Consult order Home Medications ?Medication ?Instructions ?Recorded ?Confirmed ?Last Taken ?Type No Known Home Meds 05/18/23 05/18/23 Unknown History Physical Exam Vital Signs and Narrative: Vital Signs: Last Vital Signs Temp 99.2 F 11/24/24 01:41 Pulse 88 11/24/24 01:41 Resp 18 11/24/24 01:41 BP 108/53 L 11/24/24 01:41 Pulse Ox 95 11/24/24 01:41 O2 Del Method Room Air 11/24/24 01:41 O2 Flow Rate 1 11/24/24 00:29 BMI result Body Mass Index 21.0 Gen: Appears be in no acute distress HEENT: NCAT, Moist mucosa. Pulmonary: Vesicular breath sounds, fair air entry CVS: Normal S1-S2 Abdomen: BS+, Soft, Nontender Extremities: Warm well perfused; dorsum of the hand erythematous and swollen; able to flex and extend the fingers without any difficulty. Neuro: Alert and awake. Results Labs 11/23/24 23:34 11/23/24 23:34 Labs: Laboratory Results - last 24 hr 11/23/24 11/24/24 23:34 03:00 MCV 87.6 MCH 30.5 MCHC 34.8 RDW 12.9 Plt Count 264 MPV 8.9 L Immature Gran % (Auto) 0.4 Neut % (Auto) 73.6 H Lymph % (Auto) 15.8 L [place] % (Auto) 8.6 Eos % (Auto) 1.3 Baso % (Auto) 0.3 Lymph # (Auto) 2.5 [place] # (Auto) 1.4 H Eos # (Auto) 0.2 Baso # (Auto) 0.0 Abs Immat Gran (auto) 0.06 H Absolute Neuts (auto) 11.7 H Absolute Nucleated RBC 0.000 Nucleated RBC % (auto) 0.0 Anion Gap 13 Estim Creat Clear Calc 86.1 Estimated GFR > 60 Random Glucose 99 Lactic Acid 0.9 Calcium 8.3 L Magnesium 1.5 L Total Bilirubin 0.7 AST 64 H ALT 55 H Alkaline Phosphatase 99 Total Protein 7.1 Albumin 4.0 Beta HCG, Quant < 2 Urine Color Yellow Urine Appearance Cloudy Urine pH 5.5 Ur Specific [place] 1.015 Urine Protein 30 (1+) H Urine Glucose (UA) Negative Urine Ketones Trace Urine Blood Moderate (2+) H Urine Nitrite Positive H Ur Leukocyte Esterase Moderate (2+) H Salicylates < 5.0 L Urine Opiates Screen POSITIVE H Ur Buprenorphine Scrn Not Detected Ur Oxycodone Screen Not Detected Urine Methadone Screen Not Detected Urine Fentanyl Screen POSITIVE H Acetaminophen < 3 Ur Barbiturates Screen Not Detected Ur Phencyclidine Scrn Not Detected Ur Amphetamines Screen Not Detected U Benzodiazepines Scrn POSITIVE H Urine Cocaine Screen POSITIVE H U Marijuana (THC) Screen Not Detected Ethyl Alcohol < 10 Assessment and Plan (1) Cellulitis of right hand: Status: Acute Plan 34-year-old female with a past medical history of IV drug abuse/opiate abuse presented to the hospital today with a chief complaint of right hand pain redness and swelling. Not have right hand cellulitis. Right hand cellulitis: Secondary to IV drug injection. Patient reports missing inject chin into the vein and injected into the hand. Wrist and fingers end of motion maintained. Monitor for clinical improvement; if worsens will defer to the day team to consider hand surgery consult. Follow-up ultrasound results Continue vancomycin IV UTI: Continue ceftriaxone. Follow up cultures. Opiate abuse: Addiction medicine consult. DVT prophylaxis: Lovenox Code status: Full code Quality Stroke Does the patient have a stroke diagnosis?: No VTE Prior VTE?: No VTE Risk Level:: Medical - moderate - high VTE Device Contraindication: Patient Refused VTE Drug Contraindication: N/A - Med Ordered
[2024-11-24 03:33] LABS: UACC Culture Trigger YES
[2024-11-24] MEDS: Potassium Chloride ER 20 MEQ TAB.ER.PRT 40 MEQ PO (03:59)
[2024-11-24] MEDS: Magnesium Sulfate/H2O 2 GM/50 ML PIGGYBACK IV (03:59)
[2024-11-24] MEDS: Lactated Ringers 1,000 ML 100 ML IVCONT ×2 (04:10→19:49)
[2024-11-24 05:14] LABS: MANUAL DIFF FLAG NO
[2024-11-24 05:16] LABS: Hematocrit 29.0 % (37.0-47.0); Hemoglobin 10.1 g/dl (12.0-16.0); Imm Gran Abs Auto 0.04 X10*3/uL (0.00-0.03); Imm Gran Pct Auto 0.3 % (0.0-0.4); Lymphocytes Absolute Auto 3.2 X10*3/uL (1.2-4.9); Mean Corpuscular HGB Conc 34.8 g/dl (31.0-35.0); Mean Corpuscular Hemoglobin 30.9 pg (27.0-33.0); Mean Corpuscular Volume 88.7 fL (80.0-98.0); NRBC Abs Auto 0.000 X10*3/uL (0.0-0.012); NRBC Pct Auto 0.0 /100WBC (0.0-0.2); Platelet Count 235 X10*3/uL (160-400); Red Blood Count 3.27 X10*6/uL (4.20-5.50); White Blood Count 13.6 X10*3/uL (4.8-10.8)
[2024-11-24 05:28] LABS: Anion Gap 13 (12-20); Blood Urea Nitrogen 9 mg/dL (9-16); Calcium 7.7 mg/dL (8.4-10.2); Carbon Dioxide 27 mmol/L (22-29); Chloride 105 mmol/L (96-108); Creatinine Clr Calc Pharmacy 111.4; Estimated Glomerular Filt Rate > 60; Potassium 2.6 mmol/L (3.3-5.1); Sodium 142 mmol/L (135-145)
--- NOTE | 2024-11-24 07:05 | PC.NURSE ---
PT is a 35 y/o F who was BIBA and being admitted for R hand cellulitis. She was picked up my PD/EMS outside library. She stated she did 2 bags of heroin IV. Denies any SI/HI. She injected prior into her L hand and now is having s/s of infection. Pain and swelling radiating from L hand to L forearm. Sepsis workup was conducted upon arrival to ED. Pt is AxOx3. She is a standby to the restroom. Pt also has a uti. Drug tox shows pt is + for: opiates, fentanyl, benzos & cocaine. She has a critical K+ of 2.6. Provider is aware. She has a #22 in the L hand and # 22 LAC. Currently has LR infusing at 100mLs/hr. Other meds were given per JUN. RN reached out to admitting regarding pt having a temp of 100.1 around 0630a. No new orders at this time.
--- NOTE | 2024-11-24 07:47 | PC.NURSE ---
This Rn assumed care of patient @0700. Patient currently running LR in Left forearm. Patient c/o pain rated9/10 last received dilaudid at 0400 this AM, patient not due for PRN until 0800. Asked MD Bernard to admininster PRN dilaudid early. Provider gave permission to administer PRN dilaudid. Effectiveness pending. Patient just received bed placement awaiting transport up stairs
--- NOTE | 2024-11-24 08:48 | PHA.MEDREC ---
Addendum entered by Vy Epperson RPh 11/24/24 08:54: MED REC REVIEWED BY [facility] Original Note: Pharmacy Consult ? Medication Reconciliation Pharmacy has completed the medication reconciliation. Patient states she is not taking any medications at this time.
[2024-11-24] MEDS: Potassium Chloride Packet 20 MEQ PACKET 40 MEQ PO (12:18)
[2024-11-24] MEDS: methADONE HCl 20 MG/2 ML ORAL.CONC 40 MG PO (12:18)
--- NOTE | 2024-11-24 12:47 | HO.ADDICTCON ---
History of Present Illness Date of Service: 11/24/2024 Chief Complaint: Substance use Reason for Consult: substance use Sources of Information: patient interviewed and chart reviewed HPI Narrative: Patient is a 34 year old female, with history of IVDU medically admitted with cellulitis of the hand. Consult requested as patient reported ongoing IVDU. Patient seen in room 354. She is sleeping, upon approach, but wakes to voice. She appears diaphoretic, slightly unkempt, and restless. She reports she has been using a approx a bundle of fentanyl daily--sometimes more, sometimes less, depending on how much she can get. She reports feeling unwell now. Agreeable to methadone --reports she had been engaged with [facility] previously (last dose a few weeks ago) Dose verified at [facility] 110mg with last dose on 11/07/24. Medical Evaluation Reviewed: Yes Review of Systems Constitutional: Reports as per HPI and Reports malaise Gastrointestinal: Denies diarrhea, Denies nausea and Denies vomiting Musculoskeletal: Reports myalgias Diagnostics Vital Signs (24Hr): Vital Signs - 24 hr 11/23/24 23:15 11/23/24 23:56 11/24/24 00:11 Temperature 103.3 F H Pulse Rate 126 H 103 H 98 Respiratory Rate 19 15 19 Blood Pressure 133/80 105/42 L 101/44 L Pulse Oximetry 90 L 95 97 Oxygen Delivery Method Room Air Room Air Room Air Oxygen Flow Rate 11/24/24 00:29 11/24/24 00:29 11/24/24 00:50 Temperature 99.9 F 99.9 F 99.9 F Pulse Rate 100 94 Respiratory Rate 20 18 Blood Pressure 109/45 L 100/42 L Pulse Oximetry 98 97 Oxygen Delivery Method Nasal Cannula Room Air Oxygen Flow Rate 1 11/24/24 01:26 11/24/24 01:41 11/24/24 04:23 Temperature 99.0 F 99.2 F 98.7 F Pulse Rate 89 88 78 Respiratory Rate 20 18 14 Blood Pressure 103/55 L 108/53 L 106/55 L Pulse Oximetry 96 95 94 Oxygen Delivery Method Room Air Room Air Room Air Oxygen Flow Rate 11/24/24 06:37 11/24/24 07:45 11/24/24 08:38 Temperature 100.1 F 99.4 F Pulse Rate 81 90 Respiratory Rate 12 18 16 Blood Pressure 116/72 152/86 H Pulse Oximetry 98 99 Oxygen Delivery Method Room Air Room Air Oxygen Flow Rate BMI result Body Mass Index 21.0 Labs 11/24/24 04:54 11/24/24 04:54 Labs: Laboratory Results - last 48 hr 11/23/24 11/24/24 11/24/24 23:34 03:00 04:54 WBC 15.8 H 13.6 H RBC 3.38 L 3.27 L Hgb 10.3 L 10.1 L Hct 29.6 L 29.0 L MCV 87.6 88.7 MCH 30.5 30.9 MCHC 34.8 34.8 RDW 12.9 13.1 Plt Count 264 235 MPV 8.9 L 8.9 L Immature Gran % (Auto) 0.4 0.3 Neut % (Auto) 73.6 H 66.2 Lymph % (Auto) 15.8 L 23.6 [place] % (Auto) 8.6 8.2 Eos % (Auto) 1.3 1.5 Baso % (Auto) 0.3 0.2 Lymph # (Auto) 2.5 3.2 [place] # (Auto) 1.4 H 1.1 Eos # (Auto) 0.2 0.2 Baso # (Auto) 0.0 0.0 Abs Immat Gran (auto) 0.06 H 0.04 H Absolute Neuts (auto) 11.7 H 9.0 H Absolute Nucleated RBC 0.000 0.000 Nucleated RBC % (auto) 0.0 0.0 Sodium 137 142 Potassium 3.1 L D 2.6 L* Chloride 99 105 Carbon Dioxide 28 27 Anion Gap 13 13 BUN 10 9 Creatinine 0.84 0.65 Estim Creat Clear Calc 86.1 111.4 Estimated GFR > 60 > 60 Random Glucose 99 120 H Lactic Acid 0.9 Calcium 8.3 L 7.7 L D Magnesium 1.5 L Total Bilirubin 0.7 AST 64 H ALT 55 H Alkaline Phosphatase 99 Total Protein 7.1 Albumin 4.0 Beta HCG, Quant < 2 Urine Color Yellow Urine Appearance Cloudy Urine pH 5.5 Ur Specific [place] 1.015 Urine Protein 30 (1+) H Urine Glucose (UA) Negative Urine Ketones Trace Urine Blood Moderate (2+) H Urine Nitrite Positive H Ur Leukocyte Esterase Moderate (2+) H Urine RBC 6-10 H Urine WBC 6-10 Ur Squamous Epith Cells 6-10 Urine Bacteria 4+ Hyaline Casts 6-10 Salicylates < 5.0 L Urine Opiates Screen POSITIVE H Ur Buprenorphine Scrn Not Detected Ur Oxycodone Screen Not Detected Urine Methadone Screen Not Detected Urine Fentanyl Screen POSITIVE H Acetaminophen < 3 Ur Barbiturates Screen Not Detected Ur Phencyclidine Scrn Not Detected Ur Amphetamines Screen Not Detected U Benzodiazepines Scrn POSITIVE H Urine Cocaine Screen POSITIVE H U Marijuana (THC) Screen Not Detected Ethyl Alcohol < 10 Imaging Radiology Impressions: ITS Impressions Extremity Ultrasound 11/24/24 11:55 IMPRESSION: 1. Soft tissue swelling of the dorsum of the right hand in the area of interest, with a subcutaneous thin lentiform complex fluid collection measuring 2.8 x 0.4 x 2.4 cm. This may or may not be amenable to percutaneous drainage. Electronically signed by: Josh Christianson MD 11/24/2024 12:20 PM EDT RP Mental Status Exam Mental Status Exam Patient Appearance: Unkempt Level of Consciousness: Appropriate Patient Behavior: Appropriate Affect Description: Blunted Speech Pattern: Clear Hallucinations: None Thought Process: Intact Thought Content: positive for Intact Judgement: Good Medications Medications Current Medications Ceftriaxone Sodium (Ceftriaxone Sodium 1 Gm Vial) 1 gm IVPUSH Q24H [facility] Enoxaparin Sodium (Enoxaparin Sodium 40 Mg/0.4 Ml Syringe) 40 mg SUBCUT Q24H [facility] Last Admin: 11/24/24 03:59 Dose: 40 mg Hydromorphone HCl (Hydromorphone Hcl 1 Mg/Ml Syringe) 1 mg IVPUSH Q4H PRN; Protocol PRN Reason: Pain, Severe (Pain Scale 7-10) Last Admin: 11/24/24 10:13 Dose: 1 mg Lactated Ringer's (Lr) 1,000 mls @ 100 mls/hr IVCONT .Q10H [facility] Last Admin: 11/24/24 04:10 Dose: 100 mls/hr Vancomycin HCl 1,000 mg/ (Sodium Chloride) 270 mls @ 270 mls/hr IV Q12H [facility] Pharmacy Consult (Consult Rx Vancomycin Dosing) 1 each MISCELLANE DAILY PRN PRN Reason: Consult order Allergies Allergies Allergy/AdvReac Type Severity Reaction Status Date / Time No Known Allergies Allergy Verified 11/23/24 23:22 Assessment & Plan Assessment & Plan (1) Opioid use disorder: Status: Acute Code(s): F11.90 - Opioid use, unspecified, uncomplicated Assessment and Plan: methadone 40mg X1 ordered will continue to titrate dose as tolerated inquire about HIV and hepatitis screens --she is seen by [facility] so, it is likely that she had 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 PMFSH Past Medical History Medical History Intravenous drug abuse Social History Social History Household Members: Unknown / Unable to assess Housing: Homeless Do you presently have visiting nurse or other home services: No Patient Tobacco Use Status: Former Tobacco user Smoked in Last 30 Days: Yes Patient Interested in Nicotine Replacement: No Patient Given Instructions on How to Stop Smoking: No Second Hand Smoke Exposure: Yes Use of substances other than those prescribed or required for medical reasons: Yes Substance Use Type: Crack/Cocaine and Heroin Advance Directives: No Advance Directives Information Provided: Yes Do you have a plan to hurt others: No Plan Recently lost weight without trying: No Nutrition Risks: No Nutritional Risk Patient : No : No Poor oral hygiene: No service: No
[2024-11-25] VITALS (8 sets, daily range): BP systolic 144–165; BP diastolic 70–90; PULSE 69–100; RESP 16–20; TEMP 36.4–37.1; O2SAT 96–98
[2024-11-25] MEDS: methADONE HCl 20 MG/2 ML ORAL.CONC 45 MG PO (07:40)
--- NOTE | 2024-11-25 09:09 | P.PNIM_ITS ---
Subjective Subjective Date of Service: 11/25/24 Interval History: Gram-positive bacteremia noted. Patient without any acute complaints overnight. Continues to have hand swelling Cardiovascular Cardiovascular: Reports no additional cardiovascular complaints Respiratory Respiratory: Reports no additional respiratory complaints Gastrointestinal Gastrointestinal: Reports no additional gastrointestinal complaints Genitourinary Genitourinary: Reports no additional female genitourinary complaints Musculoskeletal Musculoskeletal: Reports arthralgias and Reports joint swelling Physical Exam 2 Vital Signs: Vital Signs: Last Vital Signs Temp 97.5 F 11/25/24 07:53 Pulse 69 11/25/24 07:53 Resp 16 11/25/24 07:53 BP 144/90 H 11/25/24 07:53 Pulse Ox 97 11/25/24 07:53 O2 Del Method Room Air 11/25/24 07:53 O2 Flow Rate 1 11/24/24 00:29 BMI result Body Mass Index 21.0 Const: Other: Middle-aged female lying in bed in no distress Neck supple, no JVD Regular rate and rhythm, S1-S2 heard Regular breath sounds bilaterally, no wheezing or crackles appreciated Abdomen soft nontender, no guarding, no rigidity Patient is awake, alert and oriented to self, place, time and person ; no focal motor deficit Psych: Normal mood Swelling of dorsum of right hand with erythema, warmth and tenderness as pictured below Skin: Other: Extrem: Other: The right hand is swollen with overlying erythema, that is spans over the wrist, there is an area of violaceous coloration, the skin may slough, it is over the dorsum of the thumb, no fluctuance, patient able to flex and 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 strength is intact Objective Data Active Medications Ceftriaxone Sodium (Ceftriaxone Sodium 1 Gm Vial) 1 gm IVPUSH Q24H [facility] Last Admin: 11/24/24 23:43 Dose: 1 gm Documented By: CECI Enoxaparin Sodium (Enoxaparin Sodium 40 Mg/0.4 Ml Syringe) 40 mg SUBCUT Q24H [facility] Last Admin: 11/25/24 03:04 Dose: 40 mg Documented By: CECI Hydromorphone HCl (Hydromorphone Hcl 1 Mg/Ml Syringe) 1 mg IVPUSH Q4H PRN; Protocol PRN Reason: Pain, Severe (Pain Scale 7-10) Last Admin: 11/24/24 22:14 Dose: 1 mg Documented By: CECI Lactated Ringer's (Lr) 1,000 mls @ 100 mls/hr IVCONT .Q10H [facility] Last Infusion: 11/25/24 07:20 Dose: Infused Documented By: KENNEDY Vancomycin HCl 1,000 mg/ (Sodium Chloride) 270 mls @ 270 mls/hr IV Q12H [facility] Last Infusion: 11/25/24 07:20 Dose: Infused Documented By: KENNEDY Methadone HCl (Methadone Hcl 20 Mg/2 Ml Oral.Conc) 45 mg PO DAILY@0800 [facility] Last Admin: 11/25/24 07:40 Dose: 45 mg Documented By: DEVI Co-signed By: CECI Pharmacy Consult (Consult Rx Vancomycin Dosing) 1 each MISCELLANE DAILY PRN PRN Reason: Consult order Labs 11/24/24 04:54 11/24/24 04:54 Microbiology Microbiology Results: Microbiology 11/23/24 23:35 Blood Culture - Preliminary Blood - Venous Staphylococcus aureus 11/23/24 23:34 Blood Culture - Preliminary Blood - Venous Staphylococcus aureus Assessment and Plan (1) Cellulitis of right hand: Status: Acute Plan 34-year-old female with a past medical history of IV drug abuse/opiate abuse presented to the hospital today with a chief complaint of right hand pain redness and swelling. #. MRSA bacteremia in a patient with IV drug use and right hand cellulitis with abscess: Continue IV vancomycin. Repeat cultures today. Ordered echocardiogram. Infectious Disease and ortho consult pending #. Polysubstance use disorder: Appreciate Addiction Team. Initiated methadone #. ? Acute UTI: On ceftriaxone. Follow up cultures. DVT prophylaxis: Lovenox Code status: Full code Quality Stroke Does the patient have a stroke diagnosis?: No VTE Prior VTE?: No VTE Risk Level:: Medical - moderate - high VTE Device Contraindication: Patient Refused VTE Drug Contraindication: N/A - Med Ordered
--- NOTE | 2024-11-25 09:42 | P.CONOP_ITS ---
History of Present Illness HPI Consult date: 11/25/24 Chief complaint: Substance use Narrative: Patient is a 34-year-old female who is admitted to the hospital after presentation to the emergency department yesterday for right hand redness, swelling, pain Patient reports that she attempted to inject cocaine into the right hand, missed the vessel, and began to notice increased redness and swelling with significant pain Patient was evaluated in the ED yesterday, and admitted for cellulitis There is an area of dark, almost violaceous redness at the base of the right thumb on the dorsal aspect of the hand There is circumferential edema noted of the entire right hand, excluding the digits Ultrasound obtained yesterday did reveal fluid collection in the area of interest just at the base of the thumb Patient reports significant pain in the right hand\ Review of Systems 2 Review of Systems: Yes all other systems are reviewed and are negative PMFSH Past Medical History Medical History Intravenous drug abuse Social History Social History Household Members: Unknown / Unable to assess Housing: Homeless Do you presently have visiting nurse or other home services: No Patient Tobacco Use Status: Former Tobacco user Smoked in Last 30 Days: Yes Patient Interested in Nicotine Replacement: No Patient Given Instructions on How to Stop Smoking: No Second Hand Smoke Exposure: Yes Use of substances other than those prescribed or required for medical reasons: Yes Substance Use Type: Crack/Cocaine and Heroin Currently Displaying Signs/Symptoms of Drug Intoxication Withdrawal: No Advance Directives: No Advance Directives Information Provided: Yes Do you have a plan to hurt others: No Plan Recently lost weight without trying: No Nutrition Risks: No Nutritional Risk Patient : No : No Poor oral hygiene: No service: No Meds Allergies Allergy/AdvReac Type Severity Reaction Status Date / Time No Known Allergies Allergy Verified 11/23/24 23:22 Active Medications: Current Medications Ceftriaxone Sodium (Ceftriaxone Sodium 1 Gm Vial) 1 gm IVPUSH Q24H [facility] Last Admin: 11/24/24 23:43 Dose: 1 gm Enoxaparin Sodium (Enoxaparin Sodium 40 Mg/0.4 Ml Syringe) 40 mg SUBCUT Q24H [facility] Last Admin: 11/25/24 03:04 Dose: 40 mg Hydromorphone HCl (Hydromorphone Hcl 1 Mg/Ml Syringe) 1 mg IVPUSH Q4H PRN; Protocol PRN Reason: Pain, Severe (Pain Scale 7-10) Last Admin: 11/24/24 22:14 Dose: 1 mg Lactated Ringer's (Lr) 1,000 mls @ 100 mls/hr IVCONT .Q10H [facility] Last Infusion: 11/25/24 07:20 Dose: Infused Vancomycin HCl 1,000 mg/ (Sodium Chloride) 270 mls @ 270 mls/hr IV Q12H [facility] Last Infusion: 11/25/24 07:20 Dose: Infused Methadone HCl (Methadone Hcl 20 Mg/2 Ml Oral.Conc) 45 mg PO DAILY@0800 [facility] Last Admin: 11/25/24 07:40 Dose: 45 mg Pharmacy Consult (Consult Rx Vancomycin Dosing) 1 each MISCELLANE DAILY PRN PRN Reason: Consult order Home Medications ?Medication ?Instructions ?Recorded ?Confirmed ?Last Taken ?Type No Known Home Meds 05/18/23 11/24/24 Un known History Physical Exam 2 Vital Signs: Vital Signs: Last Vital Signs Temp 97.5 F 11/25/24 07:53 Pulse 69 11/25/24 07:53 Resp 16 11/25/24 07:53 BP 144/90 H 11/25/24 07:53 Pulse Ox 97 11/25/24 07:53 O2 Del Method Room Air 11/25/24 07:53 O2 Flow Rate 1 11/24/24 00:29 BMI result Body Mass Index 21.0 Extrem: Other: Patient is alert, oriented, and in no acute distress. Neuro: Normal sensation of the tips of all digits of the right hand at this time Vascular: Cap refill brisk Pain: Moderate tenderness to palpation throughout the right hand, worst in the dorsal aspect over the base of the thumb Pain with range of motion of the right hand ROM: Patient is not able to make a full closed fist at this time Skin: There is an area of skin breakdown over the very dark erythema at the base of the right thumb on the dorsal aspect General: Very significant edema and erythema noted of the right hand, with erythema being focused around the base of the right thumb and edema being circumferential about the right hand excluding the digits Psych: Appears grossly normal Affect normal Attitude cooperative Results Labs 11/24/24 04:54 11/24/24 04:54 Labs: H & H 11/23/24 11/24/24 Range/Units 23:34 04:54 Hgb 10.3 L 10.1 L (12.0-16.0) g/dl Hct 29.6 L 29.0 L (37.0-47.0) % All other labs normal. Assessment and Plan (1) Abscess of hand: Status: Acute (2) Cellulitis of right hand: Status: Acute (3) Sepsis: Status: Acute (4) Drug abuse, IV: Status: Acute Plan 1. Abscess of right hand Case was discussed with Dr. Oliver, and a collaborative treatment plan was formed: I educated the patient about the condition. I discussed both operative and nonoperative treatment options. The patient would like to proceed with surgery. The risks and benefits of operative treatment were discussed with the patient and the patient wishes to proceed with surgery. These risks include, but are not limited to, risk of damage to blood vessels, nerves, tendons, infection, recurrence, incomplete relief of preoperative symptoms, persistent pain, possible need for further surgery, and the risks associated with regional blocks and/or anesthesia. Plan is to take the patient to the operating room on 11/26/2024 for the following procedures: 1. Right hand I and D under general anesthesia X-ray reviewed, no evidence of foreign body NPO at midnight for surgery tomorrow Continue IV antibiotics per Medicine Continue with all other recommendations per Medicine Dressing changed today Procedures Date of Service Date of Service: 11/25/24
[2024-11-25] MEDS: Lactated Ringers 1,000 ML 100 ML IVCONT ×2 (10:06→20:27)
[2024-11-25] MEDS: methADONE HCl 20 MG/2 ML ORAL.CONC 10 MG PO (12:57)
[2024-11-25 15:45] LABS: Anion Gap 12 (12-20); Blood Urea Nitrogen 9 mg/dL (9-16); Calcium 8.2 mg/dL (8.4-10.2); Carbon Dioxide 28 mmol/L (22-29); Chloride 106 mmol/L (96-108); Creatinine Clr Calc Pharmacy 109.6; Estimated Glomerular Filt Rate > 60; Potassium 3.5 mmol/L (3.3-5.1); Sodium 142 mmol/L (135-145)
--- NOTE | 2024-11-25 16:07 | MHC.RECOVRN ---
Met with pt in follow up to discuss withdrawal and pain management. Pt c/o of 9/10 pain and stating she isn't sure whether it's from withdrawals or other pain. Discussed PRN Dilaudid and encouraged pt to utilize. Pt requesting methadone increase and addiction medicine provider Mayelin, JUDD made aware. Pt to receive 60mg of methadone tomorrow morning. Pt considering going to a [facility] program following d/c. Will continue to follow up with pt.
--- NOTE | 2024-11-25 16:19 | HE.PHANOTE ---
Re: Vanco Trough returned at 5.7. Pt has been refusing SCr. The lab was able to pull the vanco trough, but not the SCr. This advertising writer called the lab, and they had a small enough left to use for the SCr. May need to consider alternative if pt continues to refuse. Good renal function, but declined. Dose increased to 1500 mg q12h with predicted AUC 481, predicted trough 10.2. Next trough is 8/ @ 1400.
[2024-11-26] VITALS (12 sets, daily range): BP systolic 104–160; BP diastolic 59–88; PULSE 3–93; RESP 9–18; TEMP 36.4–37.5; O2SAT 91–97
[2024-11-26] MEDS: Lactated Ringers 1,000 ML 100 ML IVCONT ×2 (06:00→20:34)
[2024-11-26] MEDS: methADONE HCl 20 MG/2 ML ORAL.CONC 60 MG PO (07:25)
--- NOTE | 2024-11-26 07:49 | P.CONAN_ITS ---
HPI - Anesthesia Eval Consult details Narrative: Right hand abscess PMFSH Active Problems Active Problems: All Active Problems Opioid use disorder (Acute) Urinary tract infection (Acute) Sepsis (Acute) Cellulitis of right hand (Acute) Elevated WBC count (Acute) Drug abuse, IV (Acute) Abscess of hand (Acute) Past Medical History Medical History Intravenous drug abuse Family History Family history of problems with anesthesia: No Surgical History History of Problems with Anesthesia: No Social History Social History Household Members: Unknown / Unable to assess Housing: Homeless Do you presently have visiting nurse or other home services: No Patient Tobacco Use Status: Former Tobacco user Smoked in Last 30 Days: Yes Patient Interested in Nicotine Replacement: No Patient Given Instructions on How to Stop Smoking: No Second Hand Smoke Exposure: Yes Use of substances other than those prescribed or required for medical reasons: Yes Substance Use Type: Crack/Cocaine and Heroin Currently Displaying Signs/Symptoms of Drug Intoxication Withdrawal: No Advance Directives: No Advance Directives Information Provided: Yes Do you have a plan to hurt others: No Plan Recently lost weight without trying: No Nutrition Risks: No Nutritional Risk Patient : No : No Poor oral hygiene: No service: No Meds Allergies Allergy/AdvReac Type Severity Reaction Status Date / Time No Known Allergies Allergy Verified 11/23/24 23:22 Active Medications: Current Medications Ceftriaxone Sodium (Ceftriaxone Sodium 1 Gm Vial) 1 gm IVPUSH Q24H [facility] Last Admin: 11/26/24 00:41 Dose: 1 gm Enoxaparin Sodium (Enoxaparin Sodium 40 Mg/0.4 Ml Syringe) 40 mg SUBCUT Q24H [facility] Last Admin: 11/26/24 04:13 Dose: 40 mg Hydromorphone HCl (Hydromorphone Hcl 1 Mg/Ml Syringe) 1 mg IVPUSH Q4H PRN; Protocol PRN Reason: Pain, Severe (Pain Scale 7-10) Last Admin: 11/26/24 04:14 Dose: 1 mg Vancomycin HCl 1,500 mg/ (Sodium Chloride) 500 mls @ 333.333 mls/hr IV Q12H [facility] Last Infusion: 11/26/24 05:50 Dose: Infused Lactated Ringer's (Lr) 1,000 mls @ 100 mls/hr IVCONT .Q10H [facility] Last Admin: 11/26/24 06:00 Dose: 100 mls/hr Methadone HCl (Methadone Hcl 20 Mg/2 Ml Oral.Conc) 60 mg PO DAILY@0800 [facility] Last Admin: 11/26/24 07:25 Dose: 60 mg Pharmacy Consult (Consult Rx Vancomycin Dosing) 1 each MISCELLANE DAILY PRN PRN Reason: Consult order Home Medications ?Medication ?Instructions ?Recorded ?Confirmed ?Last Taken ?Type No Known Home Meds 05/18/23 11/24/24 Un known History Exam Height,Weight and Vital Signs: Height 5 ft 6 in Weight 58.9 kg Last Vital Signs Temp 99.5 F 11/26/24 07:26 Pulse 73 11/26/24 07:26 Resp 18 11/26/24 07:26 BP 158/75 H 11/26/24 07:26 Pulse Ox 97 11/26/24 07:26 O2 Del Method Room Air 11/26/24 07:26 O2 Flow Rate 1 11/24/24 00:29 Pertinent Lab Results Pertinent Lab Results: Laboratory Tests 11/23/24 11/24/24 11/24/24 23:34 03:00 04:54 WBC 15.8 H 13.6 H RBC 3.38 L 3.27 L Hgb 10.3 L 10.1 L Hct 29.6 L 29.0 L MCV 87.6 88.7 MCH 30.5 30.9 MCHC 34.8 34.8 RDW 12.9 13.1 Plt Count 264 235 MPV 8.9 L 8.9 L Immature Gran % (Auto) 0.4 0.3 Neut % (Auto) 73.6 H 66.2 Lymph % (Auto) 15.8 L 23.6 [place] % (Auto) 8.6 8.2 Eos % (Auto) 1.3 1.5 Baso % (Auto) 0.3 0.2 Lymph # (Auto) 2.5 3.2 [place] # (Auto) 1.4 H 1.1 Eos # (Auto) 0.2 0.2 Baso # (Auto) 0.0 0.0 Abs Immat Gran (auto) 0.06 H 0.04 H Absolute Neuts (auto) 11.7 H 9.0 H Absolute Nucleated RBC 0.000 0.000 Nucleated RBC % (auto) 0.0 0.0 Sodium 137 142 Potassium 3.1 L D 2.6 L* Chloride 99 105 Carbon Dioxide 28 27 Anion Gap 13 13 BUN 10 9 Creatinine 0.84 0.65 Estim Creat Clear Calc 86.1 111.4 Estimated GFR > 60 > 60 Random Glucose 99 120 H Lactic Acid 0.9 Calcium 8.3 L 7.7 L D Magnesium 1.5 L Total Bilirubin 0.7 AST 64 H ALT 55 H Alkaline Phosphatase 99 Total Protein 7.1 Albumin 4.0 Beta HCG, Quant < 2 Urine Color Yellow Urine Appearance Cloudy Urine pH 5.5 Ur Specific [place] 1.015 Urine Protein 30 (1+) H Urine Glucose (UA) Negative Urine Ketones Trace Urine Blood Moderate (2+) H Urine Nitrite Positive H Ur Leukocyte Esterase Moderate (2+) H Urine RBC 6-10 H Urine WBC 6-10 Ur Squamous Epith Cells 6-10 Urine Bacteria 4+ Hyaline Casts 6-10 Random Vancomycin Salicylates < 5.0 L Urine Opiates Screen POSITIVE H Ur Buprenorphine Scrn Not Detected Ur Oxycodone Screen Not Detected Urine Methadone Screen Not Detected Urine Fentanyl Screen POSITIVE H Acetaminophen < 3 Ur Barbiturates Screen Not Detected Ur Phencyclidine Scrn Not Detected Ur Amphetamines Screen Not Detected U Benzodiazepines Scrn POSITIVE H Urine Cocaine Screen POSITIVE H U Marijuana (THC) Screen Not Detected Ethyl Alcohol < 10 11/25/24 14:49 WBC RBC Hgb Hct MCV MCH MCHC RDW Plt Count MPV Immature Gran % (Auto) Neut % (Auto) Lymph % (Auto) [place] % (Auto) Eos % (Auto) Baso % (Auto) Lymph # (Auto) [place] # (Auto) Eos # (Auto) Baso # (Auto) Abs Immat Gran (auto) Absolute Neuts (auto) Absolute Nucleated RBC Nucleated RBC % (auto) Sodium 142 Potassium 3.5 D Chloride 106 Carbon Dioxide 28 Anion Gap 12 BUN 9 Creatinine 0.66 Estim Creat Clear Calc 109.6 Estimated GFR > 60 Random Glucose 111 Lactic Acid Calcium 8.2 L D Magnesium Total Bilirubin AST ALT Alkaline Phosphatase Total Protein Albumin Beta HCG, Quant Urine Color Urine Appearance Urine pH Ur Specific [place] Urine Protein Urine Glucose (UA) Urine Ketones Urine Blood Urine Nitrite Ur Leukocyte Esterase Urine RBC Urine WBC Ur Squamous Epith Cells Urine Bacteria Hyaline Casts Random Vancomycin 5.7 L Salicylates Urine Opiates Screen Ur Buprenorphine Scrn Ur Oxycodone Screen Urine Methadone Screen Urine Fentanyl Screen Acetaminophen Ur Barbiturates Screen Ur Phencyclidine Scrn Ur Amphetamines Screen U Benzodiazepines Scrn Urine Cocaine Screen U Marijuana (THC) Screen Ethyl Alcohol Airway Mallampati Class: II TM Dist: >3cm Neck ROM: Full Loose/Missing/Broken Teeth: No Heart: RRR Lungs: CTA Assessment and Plan Assessment Anesthesia Assessment: Anesthesia Plan Discussed and Chart Reviewed Final Anesthetic Review Family History of Problems with Anesthesia: No History of Problems with Anesthesia: No NPO: Yes ASA Class: III Final Preanesthetic Review: No Changes in Pt Med Stat, Meds/Allgs Chart Reviewed, Consent Obtained/Reviewed and Anes Risks/Benef Reviewed Patient Risk: Intermediate Procedure Risk: Low Anesthetic Plan Anesthetic Plan: GA
[2024-11-26 08:26] LABS: MANUAL DIFF FLAG NO
[2024-11-26 08:36] LABS: Hematocrit 27.8 % (37.0-47.0); Hemoglobin 9.3 g/dl (12.0-16.0); Imm Gran Abs Auto 0.05 X10*3/uL (0.00-0.03); Imm Gran Pct Auto 0.6 % (0.0-0.4); Lymphocytes Absolute Auto 2.6 X10*3/uL (1.2-4.9); Mean Corpuscular HGB Conc 33.5 g/dl (31.0-35.0); Mean Corpuscular Hemoglobin 30.2 pg (27.0-33.0); Mean Corpuscular Volume 90.3 fL (80.0-98.0); NRBC Abs Auto 0.000 X10*3/uL (0.0-0.012); NRBC Pct Auto 0.0 /100WBC (0.0-0.2); Platelet Count 225 X10*3/uL (160-400); Red Blood Count 3.08 X10*6/uL (4.20-5.50); White Blood Count 8.8 X10*3/uL (4.8-10.8)
[2024-11-26 08:52] LABS: Anion Gap 11 (12-20); Blood Urea Nitrogen 8 mg/dL (9-16); Calcium 7.8 mg/dL (8.4-10.2); Carbon Dioxide 28 mmol/L (22-29); Chloride 106 mmol/L (96-108); Creatinine Clr Calc Pharmacy 139.1; Estimated Glomerular Filt Rate > 60; Potassium 3.5 mmol/L (3.3-5.1); Sodium 141 mmol/L (135-145)
--- NOTE | 2024-11-26 08:56 | P.PNIM_ITS ---
Subjective Subjective Date of Service: 11/26/24 Interval History: No significant nursing events overnight. Patient to go to the OR for washout today by Orthopedic surgery. States her pain is under control Cardiovascular Cardiovascular: Reports no additional cardiovascular complaints Respiratory Respiratory: Reports no additional respiratory complaints Gastrointestinal Gastrointestinal: Reports no additional gastrointestinal complaints Musculoskeletal Musculoskeletal: Reports arthralgias and Reports joint swelling Physical Exam 2 Vital Signs: Vital Signs: Last Vital Signs Temp 99.5 F 11/26/24 07:26 Pulse 73 11/26/24 07:26 Resp 18 11/26/24 07:26 BP 158/75 H 11/26/24 07:26 Pulse Ox 97 11/26/24 07:26 O2 Del Method Room Air 11/26/24 07:26 O2 Flow Rate 1 11/24/24 00:29 BMI result Body Mass Index 21.0 Const: Other: Middle-aged female lying in bed in no distress Neck supple, no JVD Regular rate and rhythm, S1-S2 heard Regular breath sounds bilaterally, no wheezing or crackles appreciated Abdomen soft nontender, no guarding, no rigidity Patient is awake, alert and oriented to self, place, time and person ; no focal motor deficit Psych: Normal mood Swelling of dorsum of right hand with erythema, warmth and tenderness as pictured below Skin: Other: Extrem: Other: The right hand is swollen with overlying erythema, that is spans over the wrist, there is an area of violaceous coloration, the skin may slough, it is over the dorsum of the thumb, no fluctuance, patient able to flex and extend from the wrist handle and 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 is 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 Objective Data Active Medications Ceftriaxone Sodium (Ceftriaxone Sodium 1 Gm Vial) 1 gm IVPUSH Q24H [facility] Last Admin: 11/26/24 00:41 Dose: 1 gm Documented By: ZENON Enoxaparin Sodium (Enoxaparin Sodium 40 Mg/0.4 Ml Syringe) 40 mg SUBCUT Q24H [facility] Last Admin: 11/26/24 04:13 Dose: 40 mg Documented By: ZENON Fentanyl (Fentanyl Citrate/Pf 100 Mcg/2 Ml Vial) 50 mcg IVPUSH Q5M PRN PRN Reason: Pain, Severe (Pain Scale 7-10) Stop: 11/26/24 13:51 Hydromorphone HCl (Hydromorphone Hcl 1 Mg/Ml Syringe) 1 mg IVPUSH Q4H PRN; Protocol PRN Reason: Pain, Severe (Pain Scale 7-10) Last Admin: 11/26/24 04:14 Dose: 1 mg Documented By: ZENON Hydromorphone HCl (Hydromorphone Hcl 0.5 Mg/0.5 Ml Syringe) 0.5 mg IVPUSH Q5M PRN PRN Reason: Pain, Moderate to Severe (Pain Scale 4-10) Stop: 11/26/24 13:51 Vancomycin HCl 1,500 mg/ (Sodium Chloride) 500 mls @ 333.333 mls/hr IV Q12H [facility] Last Infusion: 11/26/24 05:50 Dose: Infused Documented By: ZENON Lactated Ringer's (Lr) 1,000 mls @ 100 mls/hr IVCONT .Q10H [facility] Last Admin: 11/26/24 06:00 Dose: 100 mls/hr Documented By: ZENON Methadone HCl (Methadone Hcl 20 Mg/2 Ml Oral.Conc) 60 mg PO DAILY@0800 [facility] Last Admin: 11/26/24 07:25 Dose: 60 mg Documented By: DEVI Co-signed By: IAN Naloxone HCl (Naloxone Hcl 0.4 Mg/Ml Vial) 0.04 mg IVPUSH Q5M PRN PRN Reason: Excessive sedation or RR < 8 Ondansetron HCl (Ondansetron Hcl 4 Mg/2 Ml Vial) 4 mg IVPUSH ONCE PRN PRN Reason: Nausea and Vomiting Stop: 11/26/24 13:53 Pharmacy Consult (Consult Rx Vancomycin Dosing) 1 each MISCELLANE DAILY PRN PRN Reason: Consult order Labs 11/26/24 08:18 11/26/24 08:18 Labs: Laboratory Results - last 24 hr 11/25/24 11/26/24 14:49 08:18 MCV 90.3 MCH 30.2 MCHC 33.5 RDW 13.0 Plt Count 225 MPV 9.7 Immature Gran % (Auto) 0.6 H Neut % (Auto) 58.0 Lymph % (Auto) 29.9 [place] % (Auto) 6.1 Eos % (Auto) 5.2 H Baso % (Auto) 0.2 Lymph # (Auto) 2.6 [place] # (Auto) 0.5 Eos # (Auto) 0.5 H Baso # (Auto) 0.0 Abs Immat Gran (auto) 0.05 H Absolute Neuts (auto) 5.1 Absolute Nucleated RBC 0.000 Nucleated RBC % (auto) 0.0 Anion Gap 12 11 L Estim Creat Clear Calc 109.6 139.1 Estimated GFR > 60 > 60 Random Glucose 111 80 Calcium 8.2 L D 7.8 L Random Vancomycin 5.7 L Microbiology Microbiology Results: Microbiology 11/23/24 23:34 Blood Culture - Final Blood - Venous Methicillin Res Staph Aureus 11/23/24 23:35 Blood Culture - Final Blood - Venous Methicillin Res Staph Aureus 11/24/24 Unknown Urine Culture - Preliminary Urine clean catch - Clean Catch Midstream Culture in progress. Assessment and Plan (1) MRSA bacteremia: Status: Acute Plan 34-year-old female with a past medical history of IV drug abuse/opiate abuse presented to the hospital today with a chief complaint of right hand pain redness and swelling. #. MRSA bacteremia due to right hand cellulitis with abscess: Continue IV vancomycin. Blood cultures 11/23 with a MRSA. Repeat cultures pending. Ordered echocardiogram. Patient to go to the OR for washout today by Orthopedic surgery. ID consult pending #. Polysubstance use disorder: Appreciate Addiction Team. Initiated methadone #. Normocytic anemia: Hemoglobin above transfusion threshold #. ? Acute UTI: On ceftriaxone. Follow up urine culture DVT prophylaxis: Lovenox Code status: Full code Reason for continued hospitalization: IV antibiotics Quality Stroke Does the patient have a stroke diagnosis?: No VTE Prior VTE?: No VTE Risk Level:: Medical - moderate - high VTE Device Contraindication: Patient Refused VTE Drug Contraindication: N/A - Med Ordered
--- NOTE | 2024-11-26 09:31 | MHC.SHP ---
Pre-Procedural Eval Section A - 24 Hr Update-Section A only Date of Service: 11/26/24 The patient is an INPATIENT: Yes Changes since office visit: Yes Cold of Flu in the past 2 weeks, Yes New Medical Problems, Yes Changes in Medication and Yes Patient answered all questions The patient has been examined within 24 hours of the surgical procedure. The History & Physical has been completed within 30 days and I have reviewed it.: Yes Section B - Complete if H&P > 30 days Chief Complaint: Substance use Allergies: Allergies Allergy/AdvReac Type Severity Reaction Status Date / Time No Known Allergies Allergy Verified 11/23/24 23:22 Exam Exam Comment: Right hand abscess Plan Diagnosis/Plan: Unchanged I have reviewed the history and physical and performed a pertinent physical examination on my patient. No changes have occurred unless specified. Assessment and plan: 1. Right hand abscess secondary to substance abuse I educated the patient about this condition The risks and benefits of operative treatment were discussed with the patient and the patient wishes to proceed with surgery. These risks include, but are not limited to risk of damage to blood vessels, nerves, tendons, infection, recurrence, incomplete relief of preoperative symptoms, persistent pain, possible need for further surgery and the risks associated with regional blocks and anesthesia. The plan is to take the patient to the operating room today for the following procedures: 1. Right hand I&D 2. [ ] All of the preoperative paperwork including the consent was filled out today. All the patient's questions were answered. Time Spent With Patient Time: Total time managing care of this patient today ____ minutes.
--- NOTE | 2024-11-26 09:32 | W.PM.OPN ---
Operative Note Operative Note Date of Service: 11/26/24 Narrative: Operative Note Narrative: Preop diagnosis: 1. Right dorsal hand abscess secondary to substance abuse Postop diagnosis: Same Procedure: 1. Right dorsal hand abscess I and D Surgeon: Izabella Oliver MD Cleaner Carpet And Upholstery: None Anesthesia: General Anesthesia Findings: She has an approximately 10 cm diameter area of purple hyperemia centered roughly over the ulnar aspect of the basal joint of the thumb with an apex over the abscess cavity. Creamy yellow purulence found within the abscess cavity. Implants: None Tourniquet time: 12 minutes EBL: 5.0 ml Specimen: Cultures taken of purulence Drains: 1 looped strip of iodoform gauze to facilitate drainage Complications: None Disposition: Brought to the recovery room in stable condition Plan: Admit back to floor to continue IV antibiotics. Check cultures and adjust antibiotics appropriately Wound check and dressing change tomorrow with orthopedics. Pull drains. Daily dressing changes with nursing afterwards will likely be sufficient. Consider possible OT referral to begin finger and thumb range of motion in 1-2 days. Indications: The patient is a 34 year old woman with an IV drug use history with a right dorsal hand abscess roughly over the dorsal radial aspect of the thumb secondary to recreational drug use . The risks and benefits of operative treatment, including but not limited to risk of damage to blood vessels, nerves, tendons, infection, recurrence, persistent pain or numbness, incomplete resolution of preoperative symptoms, or need for further surgery were discussed with the patient and they wished to proceed with surgery. Procedure: Once consent was obtained patient was brought back to the operating suite and placed in the operating table in a supine position. . Perioperative antibiotics and anesthesia was administered by the anesthesia team. A tourniquet was applied to the proximal aspect of the right upper extremity and the limb was prepped and draped in a standard surgical fashion. The limb was elevated exsanguinated with Esmarch bandage and the tourniquet inflated to 250 mm of mercury for a total tourniquet time of 12 minutes. I made a 1.5 cm longitudinal incision over the ulnar aspect of the apex of the abscess cavity. This was done to try and not be directly over the extensor tendons. We immediately encountered creamy yellow purulence from the abscess cavity. Cultures were taken. The abscess was drained. An I&D was then performed using a copious amount of normal saline, and debriding any clearly devitalized tissue. At this point the tourniquet was deflated and hemostasis obtained with a brief period of local pressure . The wound was copiously irrigated with normal saline. I then placed a single looped strip of iodoform gauze, quarter-inch, to facilitate drainage. No sutures were placed. She had some stiffness appreciated in the finger MCP joints after keeping them extended. A sterile dressing was applied. I also performed a gentle closed manipulation of the index middle ring and small finger MCP joints bringing them into 90 degrees of flexion back into extension to improve active and passive motion in this patient. The patient appears to have tolerated the procedure well and with no complications. All digits were well vascularized conclusion of the case.
--- NOTE | 2024-11-26 10:28 | PM.EVENT ---
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
--- NOTE | 2024-11-26 14:22 | HE.PHANOTE ---
BAKARI Changed vanco dose to 1250mg Q8H as trough has come back subtherapeutic for two days. New predicted trough 14.7, AUC 557. Next trough to be drawn 11/27 @1400 and adjusted as needed then.
[2024-11-27] MEDS: Lactated Ringers 1,000 ML 100 ML IVCONT ×2 (02:17→13:23)
[2024-11-27 03:54] VITALS: BP 144/74; PULSE 63; RESP 18; TEMP 36.6; O2SAT 97
[2024-11-27 06:48] LABS: Creatinine Clr Calc Pharmacy 133.9; Estimated Glomerular Filt Rate > 60
--- NOTE | 2024-11-27 07:00 | CA_ITS ---
Transthoracic Echocardiogram Patient (Last, First, Middle): Aline Handy, Gender: Female Date of : 1990 Age: 34 Procedure Date: 11/27/2024 Procedure Type: Transthoracic Echocardiogram Location: S3E Height: 167.64 cm Weight: 58.51 kg BSA: 1.66 m2 Heart Rate: 60 bpm BP: 144 / 90 mmHg Carrier Blower: EMIR Referring MD: Ladi Bernard MD Symptoms: mrsa bacteremia Study Quality: Adequate ECG Rhythm: Sinus Conclusions: - The left ventricular systolic function is normal. The calculated ejection fraction is 55% by biplane method. - Small, nodular echo-densities attached to the mitral valve, cannot exclude vegetation. Normal valvular function. Findings Left Ventricle Normal left ventricular cavity size. There is normal left ventricular wall thickness. The left ventricular systolic function is normal. The calculated ejection fraction is 55% by biplane method. There is no evidence of regional wall motion abnormalities. Diastolic function is normal for age. Right Ventricle Mildly increased right ventricular cavity size. There is normal right ventricular systolic function. Atria The left atrium is normal in size. The right atrium is moderately dilated. Aortic Valve There is a normal trileaflet aortic valve. There is no aortic valve stenosis. There is no aortic valve regurgitation. Mitral Valve The mitral valve appears normal. There is no mitral valve regurgitation. There is no mitral valve stenosis. Small, nodular echo-densities attached to the mitral valve, cannot exclude vegetation. Pulmonic Valve The pulmonic valve is likely normal. Tricuspid Valve Normal tricuspid valve structure. There is trace tricuspid valve regurgitation. There is no evidence of pulmonary hypertension. Great Vessels The asc aorta and aortic arch are normal in size. Venous The inferior vena cava is dilated and collapses greater than 50% with inspiration. Pericardium/Pleural There is no evidence of pericardial effusion. Prior Study Comparison No prior study available for comparison. Measurements 2D Linear Measurements IVSd: 0.99 0.6-0.9/0.6-1.0 cm LVIDd: 4.75 3.9-5.3/4.2-5.9 cm LVIDd Index: 2.86 2.4-3.2/2.2-3.1 cm/m2 LVIDs: 3.42 2.0-3.6 cm LVPWd: 1.19 0.7-1.1 cm LA Diam: 3.00 2.7-3.8/3.0-4.0 cm LAIDs Index: 1.81 1.5-2.3 cm/m2 LV Mass: 234.07 67-162/88-224 g LV Mass Index: 141.00 43-95/49-115 g/m2 LVOT Diam: 2.00 3.0+(-)1.3 cm 2D Systolic Function EF 4C: 52.10 >55% EF 2C: 59.20 >55% EF BiP: 55.30 >55% Mitral Valve MV Pk E: 1.11 MV PK A: 0.47 MV Decel Time: 238.00 E/A: 2.40 E'Lateral: 14.60 E'Medial: 11.30 E/E' Med: 9.80 E/E' Lat: 7.60 PHT: 70.00 MVA PHT: 3.14 Decel [place]: 4.68 Aortic Valve AoV Pk Kleber: 1.67 AoV Mn Kleber: 1.17 AoV VTI: 0.37 AoV Pk Grad: 11.00 Aov Mn Grad: 6.00 CURTIS Cont.VTI: 2.03 LVOT LVOT Pk Kleber: 1.17 LVOT Mn Kleber: 0.82 LVOT VTI: 0.24 LVOT Pk Grad: 5.00 LVOT Mn Grad: 3.00 LVOT Diam: 2.00 LVOT Area: 3.14 Diastolic Function MV Pk E: 1.11 MV Pk A: 0.47 E/A: 2.40 E'Medial: 11.30 E/E' Med: 9.80 E' Laterial: 14.60 E/E' Lat: 7.60 Right Ventricle TAPSE (mm): 30.10 TVS' Kleber: 11.00 Tricuspid Valve TR Pk Kleber: 1.91 TR Pk Grad: 15.00 RA Press: 8.00 RVSP: 23.00 Great Vessels Aorta Sinus of Valsalva: 3.30 2.0-3.5 cm Ao Asc: 3.00 2.1-3.4 cm Ao Arch: 2.60 Pulmonary Valve PV Pk Kleber: 0.96 Peak PV Grad: 4.00 Updated in Other Vendor System with Status of Final Chava Garcia MD electronically signed on 11/28/2024 11:14:28 AM with status of Final
[2024-11-27 07:34] VITALS: BP 138/65; PULSE 62; RESP 15; TEMP 36.5; O2SAT 97
--- NOTE | 2024-11-27 08:27 | PM.PNORT ---
Subjective Subjective Date of Service: 11/27/24 Interval history: Postop day 1 status post I and D of right hand Patient resting in bed this morning Reports significant pain in the right hand No acute events overnight No other acute complaints or concerns at this time Physical Exam Vital Signs: Vital Signs: Last Vital Signs Temp 97.7 F 11/27/24 07:34 Pulse 62 11/27/24 07:34 Resp 15 11/27/24 07:34 BP 138/65 11/27/24 07:34 Pulse Ox 97 11/27/24 07:34 O2 Del Method Room Air 11/27/24 07:34 O2 Flow Rate 1 11/24/24 00:29 BMI result Body Mass Index 21.0 Extrem: Other: Patient is alert, oriented, and in no acute distress. Neuro: Normal sensation of the tips of all digits of the right hand at this time Vascular: Cap refill brisk Pain: Moderate tenderness to palpation throughout the right hand, worst in the dorsal aspect over the base of the thumb Pain with range of motion of the right hand ROM: Patient is not able to make a full closed fist at this time Skin: Open surgical incision noted over the base of the dorsal right thumb There is significant active drainage noted Drain in place General: Very significant edema and erythema noted of the right hand, with erythema being focused around the base of the right thumb and edema being circumferential about the right hand excluding the digits Of note, edema now appears to be extending up the arm Psych: Appears grossly normal Affect normal Attitude cooperative Procedures Date of Service Date of Service: 11/27/24 Progress Note: A&P Assessment and plan (1) Drug abuse, IV: Status: Acute (2) Cellulitis of right hand: Status: Acute (3) MRSA bacteremia: Status: Acute (4) Abscess of hand: Status: Acute Plan Continue pain management Dressing changed today, packing pulled Continue IV antibiotics Encourage OT for early range of motion of the right hand will need continued wound monitoring, as there is concern for potential sizing and significant skin breakdown Wound care consult placed Time Spent With Patient Time: Total time managing care of this patient today ____ minutes. Quality Stroke Does the patient have a stroke diagnosis?: No VTE Prior VTE?: No VTE Risk Level:: Medical - moderate - high VTE Device Contraindication: Patient Refused VTE Drug Contraindication: N/A - Med Ordered
--- NOTE | 2024-11-27 08:35 | HO.POSTANES ---
Post Anesthesia Evaluation Post Anesthesia Evaluation Date of Service: 11/27/24 Vital Signs: Vital Signs Temp Pulse Resp BP Pulse Ox O2 Del Method 11/27/24 07:34 97.7 F 62 15 138/65 97 Room Air 11/27/24 03:54 97.8 F 63 18 144/74 H 97 Room Air Anesthesia: General Mental Status: Awake Pain Control: Satisfactory Nausea/Vomiting: None Hydration: Adequate Anesthesia-Related Issues: No Anes. Related Issues
[2024-11-27 08:55] LABS: MANUAL DIFF FLAG NO
[2024-11-27 08:58] LABS: Hematocrit 30.7 % (37.0-47.0); Hemoglobin 10.1 g/dl (12.0-16.0); Imm Gran Abs Auto 0.01 X10*3/uL (0.00-0.03); Imm Gran Pct Auto 0.2 % (0.0-0.4); Lymphocytes Absolute Auto 1.9 X10*3/uL (1.2-4.9); Mean Corpuscular HGB Conc 32.9 g/dl (31.0-35.0); Mean Corpuscular Hemoglobin 30.4 pg (27.0-33.0); Mean Corpuscular Volume 92.5 fL (80.0-98.0); NRBC Abs Auto 0.000 X10*3/uL (0.0-0.012); NRBC Pct Auto 0.0 /100WBC (0.0-0.2); Platelet Count 211 X10*3/uL (160-400); Red Blood Count 3.32 X10*6/uL (4.20-5.50); White Blood Count 4.7 X10*3/uL (4.8-10.8)
[2024-11-27 09:13] LABS: Anion Gap 10 (12-20); Blood Urea Nitrogen 7 mg/dL (9-16); Calcium 8.2 mg/dL (8.4-10.2); Carbon Dioxide 30 mmol/L (22-29); Chloride 106 mmol/L (96-108); Creatinine Clr Calc Pharmacy 139.1; Estimated Glomerular Filt Rate > 60; Potassium 4.0 mmol/L (3.3-5.1); Sodium 142 mmol/L (135-145)
[2024-11-27] MEDS: methADONE HCl 20 MG/2 ML ORAL.CONC 60 MG PO (11:44)
--- NOTE | 2024-11-27 12:23 | HO.ADDICTPRO ---
Subjective Subjective Date of Service: 11/27/24 Reason For Visit: Substance use Interim History: Patient seen in follow up for OUD Methadone dose at 60mg QD Patient with flat affect, brief responses to questions. When asked how she was feeling with current methadone dose, she responded, fine, I guess . Asked how she felt on previous dose of 110mg and she stated that she did not know because she stopped going to OTP shortly after reaching that dose. She would like to continue titrating dose while here. Review of Systems Acute medical concerns: Yes Review of Systems Constitutional: Reports as per HPI and Reports no additional constitutional complaints Mental Status Exam Mental Status Exam Patient Appearance: Appropriate Level of Consciousness: Awake, Appropriate and Alert Patient Behavior: Appropriate and Guarded Affect Description: Blunted and Flat Speech Pattern: Clear Hallucinations: None Thought Process: Intact Thought Content: positive for Intact Judgement: Good Diagnostics Vital Signs (24Hr): Vital Signs - 24 hr 11/26/24 15:50 11/26/24 20:00 11/27/24 03:54 Temperature 98.4 F 98.0 F 97.8 F Pulse Rate 69 75 63 Respiratory Rate 16 18 18 Blood Pressure 122/59 L 135/65 144/74 H Pulse Oximetry 95 97 97 Oxygen Delivery Method Room Air Room Air Room Air 11/27/24 07:34 Temperature 97.7 F Pulse Rate 62 Respiratory Rate 15 Blood Pressure 138/65 Pulse Oximetry 97 Oxygen Delivery Method Room Air BMI result Body Mass Index 21.0 Labs 11/27/24 08:42 11/27/24 08:42 Labs: Laboratory Results - last 48 hr 11/25/24 11/26/24 11/26/24 14:49 08:18 13:52 WBC 8.8 RBC 3.08 L Hgb 9.3 L Hct 27.8 L MCV 90.3 MCH 30.2 MCHC 33.5 RDW 13.0 Plt Count 225 MPV 9.7 Immature Gran % (Auto) 0.6 H Neut % (Auto) 58.0 Lymph % (Auto) 29.9 [place] % (Auto) 6.1 Eos % (Auto) 5.2 H Baso % (Auto) 0.2 Lymph # (Auto) 2.6 [place] # (Auto) 0.5 Eos # (Auto) 0.5 H Baso # (Auto) 0.0 Abs Immat Gran (auto) 0.05 H Absolute Neuts (auto) 5.1 Absolute Nucleated RBC 0.000 Nucleated RBC % (auto) 0.0 Hold Purple Top Sodium 142 141 Potassium 3.5 D 3.5 Chloride 106 106 Carbon Dioxide 28 28 Anion Gap 12 11 L BUN 9 8 L Creatinine 0.66 0.52 Estim Creat Clear Calc 109.6 139.1 Estimated GFR > 60 > 60 Random Glucose 111 80 Calcium 8.2 L D 7.8 L Random Vancomycin 5.7 L 12.9 L 11/27/24 11/27/24 05:57 08:42 WBC 4.7 L RBC 3.32 L Hgb 10.1 L Hct 30.7 L MCV 92.5 MCH 30.4 MCHC 32.9 RDW 12.9 Plt Count 211 MPV 9.0 L Immature Gran % (Auto) 0.2 Neut % (Auto) 43.9 L Lymph % (Auto) 40.4 H [place] % (Auto) 8.5 Eos % (Auto) 6.6 H Baso % (Auto) 0.4 Lymph # (Auto) 1.9 [place] # (Auto) 0.4 Eos # (Auto) 0.3 Baso # (Auto) 0.0 Abs Immat Gran (auto) 0.01 Absolute Neuts (auto) 2.1 Absolute Nucleated RBC 0.000 Nucleated RBC % (auto) 0.0 Hold Purple Top SEE NOTE Sodium 142 Potassium 4.0 Chloride 106 Carbon Dioxide 30 H Anion Gap 10 L BUN 7 L Creatinine 0.54 0.52 Estim Creat Clear Calc 133.9 139.1 Estimated GFR > 60 > 60 Random Glucose 75 Calcium 8.2 L Random Vancomycin Imaging Radiology Impressions: ITS Impressions Extremity Ultrasound 11/24/24 11:55 IMPRESSION: 1. Soft tissue swelling of the dorsum of the right hand in the area of interest, with a subcutaneous thin lentiform complex fluid collection measuring 2.8 x 0.4 x 2.4 cm. This may or may not be amenable to percutaneous drainage. Electronically signed by: Josh Christianson MD 11/24/2024 12:20 PM EDT Medications Medications Current Medications Ceftriaxone Sodium (Ceftriaxone Sodium 1 Gm Vial) 1 gm IVPUSH Q24H [facility] Last Admin: 11/26/24 23:58 Dose: 1 gm Enoxaparin Sodium (Enoxaparin Sodium 40 Mg/0.4 Ml Syringe) 40 mg SUBCUT Q24H [facility] Last Admin: 11/27/24 02:17 Dose: 40 mg Hydromorphone HCl (Hydromorphone Hcl 1 Mg/Ml Syringe) 1 mg IVPUSH Q4H PRN; Protocol PRN Reason: Pain, Severe (Pain Scale 7-10) Last Admin: 11/27/24 08:10 Dose: 1 mg Lactated Ringer's (Lr) 1,000 mls @ 100 mls/hr IVCONT .Q10H [facility] Last Admin: 11/27/24 02:17 Dose: 100 mls/hr Vancomycin HCl 1,250 mg/ (Sodium Chloride) 250 mls @ 166.667 mls/hr IV Q8H [facility] Last Infusion: 11/27/24 10:58 Dose: Infused Pharmacy Consult (Consult Rx Vancomycin Dosing) 1 each MISCELLANE DAILY PRN PRN Reason: Consult order Allergies Allergies Allergy/AdvReac Type Severity Reaction Status Date / Time No Known Allergies Allergy Verified 11/23/24 23:22 Assessment & Plan Assessment & Plan (1) Opioid use disorder: Status: Acute Code(s): F11.90 - Opioid use, unspecified, uncomplicated Assessment and Plan: continue methadone dose titration as appropriate follow up with regards to ASHLEY treatment will depend on dispo will continue to follow Total time managing care of this patient today __20__ minutes.
[2024-11-27 15:11] VITALS: BP 144/71; PULSE 58; RESP 12; TEMP 36.7; O2SAT 96
--- NOTE | 2024-11-27 15:31 | MHC.CM.PN ---
per rounds pt not medically ready for dc
--- NOTE | 2024-11-27 16:02 | P.CNID_ITS ---
History of Present Illness Data of Consult Service Date: 11/27/24 Requesting physician: Eloise Markham Primary Care Provider: Unknown Physician HPI Reason for consult: MRSA bacteremia,11/23 She presents with right hand dorsum pain for last three days. She has no fever or chills ,but has dysuria. She had injected into hand. She has pain in right arm. Review of Systems 2 Review of Systems: Yes all other systems are reviewed and are negative PMFSH Past Medical History Medical History Intravenous drug abuse Family History Family history: reviewed and not pertinent Social History Social History Household Members: Unknown / Unable to assess Housing: Homeless Do you presently have visiting nurse or other home services: No Patient Tobacco Use Status: Former Tobacco user Smoked in Last 30 Days: Yes Patient Interested in Nicotine Replacement: No Patient Given Instructions on How to Stop Smoking: No Second Hand Smoke Exposure: Yes Use of substances other than those prescribed or required for medical reasons: Yes Substance Use Type: Crack/Cocaine and Heroin Currently Displaying Signs/Symptoms of Drug Intoxication Withdrawal: No Advance Directives: No Advance Directives Information Provided: Yes Do you have a plan to hurt others: No Plan Recently lost weight without trying: No Nutrition Risks: No Nutritional Risk Patient : No : No Poor oral hygiene: No service: No Meds Allergies Allergy/AdvReac Type Severity Reaction Status Date / Time No Known Allergies Allergy Verified 11/23/24 23:22 Active Medications: Current Medications Ceftriaxone Sodium (Ceftriaxone Sodium 1 Gm Vial) 1 gm IVPUSH Q24H [facility] Last Admin: 11/26/24 23:58 Dose: 1 gm Enoxaparin Sodium (Enoxaparin Sodium 40 Mg/0.4 Ml Syringe) 40 mg SUBCUT Q24H [facility] Last Admin: 11/27/24 02:17 Dose: 40 mg Hydromorphone HCl (Hydromorphone Hcl 1 Mg/Ml Syringe) 1 mg IVPUSH Q4H PRN; Protocol PRN Reason: Pain, Severe (Pain Scale 7-10) Last Admin: 11/27/24 13:25 Dose: 1 mg Lactated Ringer's (Lr) 1,000 mls @ 100 mls/hr IVCONT .Q10H [facility] Last Admin: 11/27/24 13:23 Dose: 100 mls/hr Vancomycin HCl 1,000 mg/ (Sodium Chloride) 270 mls @ 270 mls/hr IV Q8H [facility] Methadone HCl (Methadone Hcl 20 Mg/2 Ml Oral.Conc) 70 mg PO DAILY@0800 [facility] Pharmacy Consult (Consult Rx Vancomycin Dosing) 1 each MISCELLANE DAILY PRN PRN Reason: Consult order Home Medications ?Medication ?Instructions ?Recorded ?Confirmed ?Last Taken ?Type No Known Home Meds 05/18/23 11/24/24 Un known History Physical Exam 2 Vital Signs: Vital Signs: Last Vital Signs Temp 98.1 F 11/27/24 15:11 Pulse 58 11/27/24 15:11 Resp 12 11/27/24 15:11 BP 144/71 H 11/27/24 15:11 Pulse Ox 96 11/27/24 15:11 O2 Del Method Room Air 11/27/24 15:11 O2 Flow Rate 1 11/24/24 00:29 BMI result Body Mass Index 21.0 Const: General: cooperative HEENT: Head: Yes normal to inspection Face and sinus: Yes normal facial exam Mouth: Normal oral and palatal mucosa present Teeth and gingiva: d entition normal Eyes: General: appearance normal, both eyes and all related structures P upils: Equal, round and reactive pupils present Resp: Effort & Inspection: normal respiratory effort Cardio: Rate: regular rate Rhythm: regular rhythm GI: Palpation (GI): Soft to palpation and nontender : General: Yes no CVA tenderness Back/Spine/Pelvis: Back: no CVA tenderness Skin: General skin exam: no rashes or lesions noted Neuro: General: moves all extremities Cranial nerves: Yes Equal, round and reactive pupils present Extrem: Other: right arm swelling,right hand wrapped. General: Yes normal to inspection Psych: Appearance: grossly normal Results Labs 11/27/24 08:42 11/27/24 08:42 Labs: Short CBC 11/27/24 Range/Units 08:42 WBC 4.7 L (4.8-10.8) X10*3/uL Hgb 10.1 L (12.0-16.0) g/dl Hct 30.7 L (37.0-47.0) % Plt Count 211 (160-400) X10*3/uL BMP 11/27/24 11/27/24 05:57 08:42 Sodium 142 Potassium 4.0 Chloride 106 Carbon Dioxide 30 H BUN 7 L Creatinine 0.54 0.52 Calcium 8.2 L Microbiology Microbiology Results: Microbiology 11/26/24 09:45 Hand Right Gram Stain - Final 11/26/24 09:45 Hand Right Routine Culture - Preliminary Staphylococcus aureus 11/24/24 Unknown Urine clean catch - Clean Catch Midstream Urine Culture - Final Escherichia coli 11/25/24 09:14 Blood - Venous Blood Culture - Final 11/25/24 09:14 Blood - Venous Blood Culture - Final 11/23/24 23:34 Blood - Venous Blood Culture - Final Methicillin Res Staph Aureus 11/23/24 23:35 Blood - Venous Blood Culture - Final Methicillin Res Staph Aureus Assessment and Plan (1) Opioid use disorder: Status: Acute (2) Drug abuse, IV: Status: Acute (3) Cellulitis of right hand: Status: Acute (4) Sepsis: Status: Acute (5) MRSA bacteremia: Status: Acute Plan There is hand swelling and redness likely source of MRSA. She has UTI reported also She may have right arm cellulitis/fasciitis further up. Would continue Vancomycin, need 30 day IV placement. Change Ceftriaxone to po tomorrow for seven days Would get CT scan of arm tomorrow evaluate abscess if still swollen.
--- NOTE | 2024-11-27 16:02 | HO.PM.IMPN ---
Subjective Subjective Date of Service: 11/27/24 Interval History: f/u R hand cellulitis Still having significant pain right hand No fever, chills, nausea vomiting Patient reports homelessness Review of Systems Review of Systems: Yes all other systems are reviewed and are negative Physical Exam Exam: Exam: General: AOx3, no acute distress Resp: CTA bilaterally CVS: S1, S2, RRR GI: +BS, NT, no distention Skin: Warm, dry. R hand wrapped from recent I&D. No significant erythema or warmth superior to the site Neuro: Cranial nerves II-XII grossly intact bilaterally. Motor grossly intact bilaterally Extremities: No edema Psych: Appropriate affect Vital Signs: Vital Signs: Last Vital Signs Temp 98.1 F 11/27/24 15:11 Pulse 58 11/27/24 15:11 Resp 12 11/27/24 15:11 BP 144/71 H 11/27/24 15:11 Pulse Ox 96 11/27/24 15:11 O2 Del Method Room Air 11/27/24 15:11 O2 Flow Rate 1 11/24/24 00:29 BMI result Body Mass Index 21.0 Objective Data Active Medications Ceftriaxone Sodium (Ceftriaxone Sodium 1 Gm Vial) 1 gm IVPUSH Q24H [facility] Last Admin: 11/26/24 23:58 Dose: 1 gm Documented By: SIGRID Enoxaparin Sodium (Enoxaparin Sodium 40 Mg/0.4 Ml Syringe) 40 mg SUBCUT Q24H [facility] Last Admin: 11/27/24 02:17 Dose: 40 mg Documented By: SIGRID Hydromorphone HCl (Hydromorphone Hcl 1 Mg/Ml Syringe) 1 mg IVPUSH Q4H PRN; Protocol PRN Reason: Pain, Severe (Pain Scale 7-10) Last Admin: 11/27/24 13:25 Dose: 1 mg Documented By: JEFE Lactated Ringer's (Lr) 1,000 mls @ 100 mls/hr IVCONT .Q10H [facility] Last Admin: 11/27/24 13:23 Dose: 100 mls/hr Documented By: JEFE Vancomycin HCl 1,000 mg/ (Sodium Chloride) 270 mls @ 270 mls/hr IV Q8H [facility] Methadone HCl (Methadone Hcl 20 Mg/2 Ml Oral.Conc) 70 mg PO DAILY@0800 [facility] Pharmacy Consult (Consult Rx Vancomycin Dosing) 1 each MISCELLANE DAILY PRN PRN Reason: Consult order Labs 11/27/24 08:42 11/27/24 08:42 Labs: Laboratory Results - last 24 hr 11/27/24 11/27/24 11/27/24 05:57 08:42 13:45 MCV 92.5 MCH 30.4 MCHC 32.9 RDW 12.9 Plt Count 211 MPV 9.0 L Immature Gran % (Auto) 0.2 Neut % (Auto) 43.9 L Lymph % (Auto) 40.4 H [place] % (Auto) 8.5 Eos % (Auto) 6.6 H Baso % (Auto) 0.4 Lymph # (Auto) 1.9 [place] # (Auto) 0.4 Eos # (Auto) 0.3 Baso # (Auto) 0.0 Abs Immat Gran (auto) 0.01 Absolute Neuts (auto) 2.1 Absolute Nucleated RBC 0.000 Nucleated RBC % (auto) 0.0 Hold Purple Top SEE NOTE Anion Gap 10 L Estim Creat Clear Calc 133.9 139.1 Estimated GFR > 60 > 60 Random Glucose 75 Calcium 8.2 L Random Vancomycin 22.8 H Microbiology Microbiology Results: Microbiology 11/26/24 09:45 Gram Stain - Final Hand Right Routine Culture - Preliminary Staphylococcus aureus 11/24/24 Unknown Urine Culture - Final Urine clean catch - Clean Catch Midstream Escherichia coli 11/25/24 09:14 Blood Culture - Final Blood - Venous 11/25/24 09:14 Blood Culture - Final Blood - Venous Assessment and Plan (1) Cellulitis of right hand: Status: Acute (2) Abscess of hand: Status: Acute (3) Sepsis: Status: Acute (4) MRSA bacteremia: Status: Acute Plan 34-year-old female with a past medical history of IV drug abuse/opiate abuse presented to the hospital today with a chief complaint of right hand pain redness and swelling. MRSA bacteremia due to right hand cellulitis with abscess: Continue IV vancomycin. Blood cultures 11/23 with a MRSA. Repeat cultures pending. Ordered echocardiogram. s/p I&D right hand yesterday OT Wound care consult Polysubstance use disorder: Appreciate Addiction Team. Initiated methadone Normocytic anemia: Hemoglobin above transfusion threshold, stable Acute UTI: On ceftriaxone, susceptible on culture. DVT prophylaxis: Lovenox Code status: Full code Reason for continued hospitalization: IV antibiotics Quality Stroke Does the patient have a stroke diagnosis?: No VTE Prior VTE?: No VTE Risk Level:: Medical - moderate - high VTE Device Contraindication: Patient Refused VTE Drug Contraindication: N/A - Med Ordered
--- NOTE | 2024-11-27 16:42 | MHC.RECOVRN ---
Met with pt to provide support for ASHLEY. Pt reports wanting in increase her methadone dose. Aranza Lloyd [facility]N HUSK BALER to increase to 65mg tomorrow. Pt also reports it is difficult to to reach her OTP in the community due to being unhoused. TW to meet with pt in the morning to discuss alternate OTP clinics that may be easier for to to attend daily. Pt also provided with coloring pages, word searches, colored pencils and blanket to aid in comfort during her admission. Pt denies complaints or questions at this time. TW available for further questions or concerns if needed.
[2024-11-27 19:11] VITALS: BP 179/86; PULSE 61; RESP 18; TEMP 36.7; O2SAT 95
[2024-11-27 22:19] VITALS: BP 183/93
[2024-11-27 23:17] VITALS: BP 179/88; PULSE 66
[2024-11-28 03:30] VITALS: BP 137/85; PULSE 61; RESP 18; TEMP 36.7; O2SAT 96
[2024-11-28 06:10] LABS: MANUAL DIFF FLAG NO
[2024-11-28 06:32] LABS: Anion Gap 9 (12-20); Blood Urea Nitrogen 7 mg/dL (9-16); Calcium 8.3 mg/dL (8.4-10.2); Carbon Dioxide 31 mmol/L (22-29); Chloride 106 mmol/L (96-108); Creatinine Clr Calc Pharmacy 131.4; Estimated Glomerular Filt Rate > 60; Potassium 3.8 mmol/L (3.3-5.1); Sodium 142 mmol/L (135-145)
[2024-11-28 06:51] LABS: Hematocrit 29.2 % (37.0-47.0); Hemoglobin 9.5 g/dl (12.0-16.0); Imm Gran Abs Auto 0.01 X10*3/uL (0.00-0.03); Imm Gran Pct Auto 0.2 % (0.0-0.4); Lymphocytes Absolute Auto 2.0 X10*3/uL (1.2-4.9); Mean Corpuscular HGB Conc 32.5 g/dl (31.0-35.0); Mean Corpuscular Hemoglobin 29.8 pg (27.0-33.0); Mean Corpuscular Volume 91.5 fL (80.0-98.0); NRBC Abs Auto 0.000 X10*3/uL (0.0-0.012); NRBC Pct Auto 0.0 /100WBC (0.0-0.2); Platelet Count 237 X10*3/uL (160-400); Red Blood Count 3.19 X10*6/uL (4.20-5.50); White Blood Count 4.9 X10*3/uL (4.8-10.8)
[2024-11-28] MEDS: methADONE HCl 20 MG/2 ML ORAL.CONC 70 MG PO (07:27)
[2024-11-28 07:29] VITALS: BP 154/73; PULSE 73; RESP 16; TEMP 36.4; O2SAT 99
[2024-11-28 08:35] LABS: HIV Num 1 0.06 S/CO (0.00-0.99)
--- NOTE | 2024-11-28 09:15 | PM.PNORT ---
Subjective Subjective Date of Service: 11/28/24 Interval history: Postop day 2 status post I and D of right hand Patient resting comfortably in bed Pain well managed No acute events overnight No other acute complaints or concerns at this time Physical Exam Vital Signs: Vital Signs: Last Vital Signs Temp 97.6 F 11/28/24 07:29 Pulse 73 11/28/24 07:29 Resp 16 11/28/24 07:29 BP 154/73 H 11/28/24 07:29 Pulse Ox 99 11/28/24 07:29 O2 Del Method Room Air 11/28/24 07:29 O2 Flow Rate 1 11/24/24 00:29 BMI result Body Mass Index 21.0 Extrem: Other: Patient is alert, oriented, and in no acute distress. Neuro: Normal sensation of the tips of all digits of the right hand at this time Vascular: Cap refill brisk Pain: Moderate tenderness to palpation throughout the right hand, worst in the dorsal aspect over the base of the thumb Pain with range of motion of the right hand ROM: Patient is not able to make a full closed fist at this time Skin: Open surgical incision noted over the base of the dorsal right thumb There is significant active drainage noted Of note, wound appears to have enlarged slightly, appears more open than yesterday General: Edema vastly improved, erythema stable of the right hand, with erythema being focused around the base of the right thumb Edema no longer extending into the arm Psych: Appears grossly normal Affect normal Attitude cooperative Procedures Date of Service Date of Service: 11/28/24 Progress Note: A&P Assessment and plan (1) Drug abuse, IV: Status: Acute (2) Cellulitis of right hand: Status: Acute (3) MRSA bacteremia: Status: Acute (4) Abscess of hand: Status: Acute Plan Continue pain management Dressing changed today Continue IV antibiotics Encourage OT for early range of motion of the right hand Wound care consult placed for wound care in the setting of potential Xylazine use will need continued wound monitoring, as there is concern for potential sizing and significant skin breakdown Time Spent With Patient Time: Total time managing care of this patient today ____ minutes. Quality Stroke Does the patient have a stroke diagnosis?: No VTE Prior VTE?: No VTE Risk Level:: Medical - moderate - high VTE Device Contraindication: Patient Refused VTE Drug Contraindication: N/A - Med Ordered
--- NOTE | 2024-11-28 11:47 | P.PNIM_ITS ---
Subjective Subjective Date of Service: 11/28/24 Interval History: f/u R hand cellulitis Still having intermittent pain in the right hand, better than yesterday, swelling improved No fever, chills, nausea vomiting Patient reports homelessness, will need to d/c to STR for IV abx s/p I+D with ortho POD2 Review of Systems Review of Systems: Yes all other systems are reviewed and are negative Physical Exam 2 Exam: Exam: General: AOx3, no acute distress Resp: CTA bilaterally CVS: RRR GI: +BS, NT, no distention Skin: Warm, dry. no erythema extending beyond dressing Neuro: Cranial nerves II-XII grossly intact bilaterally. Motor grossly intact bilaterally Extremities: edema improving R hand Psych: depressed affect Vital Signs: Vital Signs: Last Vital Signs Temp 97.6 F 11/28/24 07:29 Pulse 73 11/28/24 07:29 Resp 16 11/28/24 07:29 BP 154/73 H 11/28/24 07:29 Pulse Ox 99 11/28/24 07:29 O2 Del Method Room Air 11/28/24 07:29 O2 Flow Rate 1 11/24/24 00:29 BMI result Body Mass Index 21.0 Objective Data Active Medications Ceftriaxone Sodium (Ceftriaxone Sodium 1 Gm Vial) 1 gm IVPUSH Q24H [facility] Last Admin: 11/27/24 23:14 Dose: 1 gm Documented By: ANU Enoxaparin Sodium (Enoxaparin Sodium 40 Mg/0.4 Ml Syringe) 40 mg SUBCUT Q24H [facility] Last Admin: 11/28/24 03:42 Dose: 40 mg Documented By: ANU Hydralazine HCl (Hydralazine Hcl 20 Mg/Ml Vial) 5 mg IVPUSH Q6H PRN; Protocol PRN Reason: SBP > 160 Last Admin: 11/27/24 22:19 Dose: 5 mg Documented By: ANU Hydromorphone HCl (Hydromorphone Hcl 1 Mg/Ml Syringe) 1 mg IVPUSH Q4H PRN; Protocol PRN Reason: Pain, Severe (Pain Scale 7-10) Last Admin: 11/28/24 07:58 Dose: 1 mg Documented By: HENRRY Vancomycin HCl 1,000 mg/ (Sodium Chloride) 270 mls @ 270 mls/hr IV Q8H [facility] Last Infusion: 11/28/24 06:48 Dose: Infused Documented By: HENRRY Methadone HCl (Methadone Hcl 20 Mg/2 Ml Oral.Conc) 70 mg PO DAILY@0800 [facility] Last Admin: 11/28/24 07:27 Dose: 70 mg Documented By: HENRRY Co-signed By: KENNEDY Pharmacy Consult (Consult Rx Vancomycin Dosing) 1 each MISCELLANE DAILY PRN PRN Reason: Consult order Labs 11/28/24 05:50 11/28/24 05:50 Labs: Laboratory Results - last 24 hr 11/27/24 11/27/24 11/28/24 13:45 17:48 05:50 MCV 91.5 MCH 29.8 MCHC 32.5 RDW 12.4 Plt Count 237 MPV 9.6 Immature Gran % (Auto) 0.2 Neut % (Auto) 41.2 L Lymph % (Auto) 40.5 H [place] % (Auto) 9.7 Eos % (Auto) 8.0 H Baso % (Auto) 0.4 Lymph # (Auto) 2.0 [place] # (Auto) 0.5 Eos # (Auto) 0.4 Baso # (Auto) 0.0 Abs Immat Gran (auto) 0.01 Absolute Neuts (auto) 2.0 Absolute Nucleated RBC 0.000 Nucleated RBC % (auto) 0.0 ESR 53 H Anion Gap 9 L Estim Creat Clear Calc 131.4 Estimated GFR > 60 Random Glucose 94 Calcium 8.3 L C-Reactive Protein 2.16 H Random Vancomycin 22.8 H HIV 1&2 Ab/P24 Ag 4thGn Nonreactive Microbiology Microbiology Results: Microbiology 11/27/24 05:57 Blood Culture - Preliminary Blood - Venous No growth after 24 hours. 11/27/24 05:57 Blood Culture - Preliminary Blood - Venous No growth after 24 hours. 11/26/24 09:45 Gram Stain - Final Hand Right Routine Culture - Final Methicillin Res Staph Aureus Assessment and Plan (1) MRSA bacteremia: Status: Acute (2) Cellulitis of right hand: Status: Acute (3) Drug abuse, IV: Status: Acute (4) Endocarditis: Status: Acute Plan 34-year-old female with a past medical history of IV drug abuse/opiate abuse presented to the hospital today with a chief complaint of right hand pain redness and swelling. MRSA bacteremia due to right hand cellulitis with abscess + endocarditis: Continue IV vancomycin and ceftriaxone Blood cultures 11/23 with a MRSA. Repeat cultures negative. echo with small mitral valve vegetation, valve looks ok s/p I&D right hand 11/26 OT encourged per ortho Wound care consult per ortho, has not been seen yet ID consult: She may have right arm cellulitis/fasciitis further up. Would continue Vancomycin, need 30 day IV placement. Change Ceftriaxone to po 11/28 for seven days. Would get CT scan of arm 11/28 evaluate abscess if still swollen. reached out to ID regarding further res after endocarditis dx: no change, continue vancomycin x4 weeks. Polysubstance use disorder: Appreciate Addiction Team. methadone restarted here Normocytic anemia: Hemoglobin above transfusion threshold, stable Acute UTI: On ceftriaxone, susceptible on culture. switch to cefuroxime per ID for a total of 7 days tx DVT prophylaxis: Lovenox Code status: Full code Reason for continued hospitalization: IV antibiotics Dispo: STR for IV abx Quality Stroke Does the patient have a stroke diagnosis?: No VTE Prior VTE?: No VTE Risk Level:: Medical - moderate - high VTE Device Contraindication: Patient Refused VTE Drug Contraindication: N/A - Med Ordered
--- NOTE | 2024-11-28 13:05 | HO.WOUND ---
Wound Consult: Initial 34yr old?F admitted to [facility] on 11/24/24 - See progress notes and H&P for detailed history.? Wound consult placed for Right Hand s/p I&D of Abscess.? Patient agreeable to assessment and photo documentation.? Right hand assessed - appears improved compared to photo from admission - fingers are warm denies numbness and tingling - appears to have full ROM to all fingers and thumb with slight limitation. Patient is followed by Ortho Surgery Team. Right Hand Etiology: ??S/p I& D of Abscess Measurements: 1.2cm x 1.2 cm x unable to probe full depth of wound per pt Wound Bed:adherent yellow slough Drainage / Odor: Yellow pink drainage noted - no odor noted Edges: ? unattached [place] wound: ?Red erythema - resolving swelling noted - Mild Induration, Mild Fluctuance noted Pain: Reports pain with some improvement Goals of Treatment: ? Lightly pack with Hydrofiber for antimicrobial properties and moisture management Recommendations: Right Hand - Elevate hand on pillow. Cleanse with NS - Pat dry. Apply skin prep to periwound, lightly pack wound bed with cut strip of Durafiber AG be sure to leave a wick for easy removal, cover with ABD pad, gauze wrap. Change Daily while inpatient. Of note Hydrofibers and Alginates may stay in place up to 5-7 days. At time of discharge patient may continue with current treatment and perform changes every other day. Re-consult wound care Nurse for wound deterioration or wound changes.
--- NOTE | 2024-11-28 13:10 | MHC.RECOVRN ---
Met with pt in 354 to offer support regarding ASHLEY. Pt was sitting in bed watching TV with blunted affect and was agreeable to conversation. Pt reports pain and withdrawal symptoms are managed adequately. Discussed harm reduction techniques such as utilizing tapestry for clean supplies, not sharing needles, and using a test shot when obtaining drugs from new sources. Pt also provided resources for [place] for [place], information on the multiple pathways for recovery, recovery coaching. Pt was also provided information on [facility]. Pt reports she is unsure where she will be discharged to for her continued antibiotics so referral to OTP clinics in the area are currently on hold until discharge plan is finalized. TW is available for continued support or to answer and questions or concerns
[2024-11-28 16:00] VITALS: BP 154/66; PULSE 58; RESP 17; TEMP 36.4; O2SAT 93
[2024-11-28 19:39] VITALS: BP 159/77; PULSE 60; RESP 20; TEMP 36.6; O2SAT 97
[2024-11-29 03:16] VITALS: BP 160/72; PULSE 63; RESP 18; TEMP 36.3; O2SAT 96
[2024-11-29 07:00] LABS: Creatinine Clr Calc Pharmacy 118.5; Estimated Glomerular Filt Rate > 60
[2024-11-29] MEDS: methADONE HCl 20 MG/2 ML ORAL.CONC 70 MG PO (07:24)
[2024-11-29 07:39] VITALS: BP 134/66; PULSE 58; RESP 18; TEMP 36.6; O2SAT 97
--- NOTE | 2024-11-29 08:40 | PM.PNORT ---
Subjective Subjective Date of Service: 11/29/24 Interval history: Postop day 3 status post I and D of right hand Patient resting comfortably in bed Pain well managed No acute events overnight No other acute complaints or concerns at this time Physical Exam Vital Signs: Vital Signs: Last Vital Signs Temp 97.8 F 11/29/24 07:39 Pulse 58 11/29/24 07:39 Resp 18 11/29/24 07:39 BP 134/66 11/29/24 07:39 Pulse Ox 97 11/29/24 07:39 O2 Del Method Room Air 11/29/24 07:39 O2 Flow Rate 1 11/24/24 00:29 BMI result Body Mass Index 21.0 Extrem: Other: Patient is alert, oriented, and in no acute distress. Neuro: Normal sensation of the tips of all digits of the right hand at this time Vascular: Cap refill brisk Pain: Mild to Moderate tenderness to palpation throughout the right hand, worst in the dorsal aspect over the base of the thumb Some Pain with range of motion of the right hand ROM: Patient is not able to make a full closed fist at this time Skin: Open surgical incision noted over the base of the dorsal right thumb There is active drainage noted Of note, wound appears to be stable from yesterday, appears more shallow General: Edema vastly improved, erythema slightly improved of the right hand, with erythema being focused around the base of the right thumb Edema no longer extending into the arm Psych: Appears grossly normal Affect normal Attitude cooperative Procedures Date of Service Date of Service: 11/29/24 Progress Note: A&P Assessment and plan (1) Drug abuse, IV: Status: Acute (2) Cellulitis of right hand: Status: Acute (3) MRSA bacteremia: Status: Acute (4) Abscess of hand: Status: Acute Plan Continue pain management Dressing changed today Continue IV antibiotics Encourage OT for early range of motion of the right hand Wound care consult placed for wound care in the setting of potential Xylazine use will need continued wound monitoring, as there is concern for potential sizing and significant skin breakdown Time Spent With Patient Time: Total time managing care of this patient today ____ minutes. Quality Stroke Does the patient have a stroke diagnosis?: No VTE Prior VTE?: No VTE Risk Level:: Medical - moderate - high VTE Device Contraindication: Patient Refused VTE Drug Contraindication: N/A - Med Ordered
--- NOTE | 2024-11-29 13:00 | MHC.CM.PN ---
Patient accepted at [facility]. MDS/PASRR submitted to [facility]. 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 No current home clinic. Restarted on Methadone this admission. Recovery team will coordinate guest dosing with [facility] for anticipated start date of 12/01. Awaiting PICC.
--- NOTE | 2024-11-29 15:07 | HO.PM.IMPN ---
Subjective Subjective Date of Service: 11/29/24 Interval History: No acute issues overnight. Pain control adequate. Awaiting PICC line Review of Systems Denies chest pain Denies shortness of breath Denies nausea vomiting diarrhea Denies fever chills Physical Exam Vital Signs: Vital Signs: Last Vital Signs Temp 97.8 F 11/29/24 07:39 Pulse 58 11/29/24 07:39 Resp 18 11/29/24 07:39 BP 134/66 11/29/24 07:39 Pulse Ox 97 11/29/24 07:39 O2 Del Method Room Air 11/29/24 07:39 O2 Flow Rate 1 11/24/24 00:29 BMI result Body Mass Index 21.0 Const: Other: Awake alert oriented x3 in no acute distress Resp: Other: Clear to auscultation bilaterally no rales rhonchi or wheezes Cardio: Other: No S4; positive S1-S2; no S3 murmurs rubs or gallops GI: Other: Soft nontender nondistended normoactive bowel sounds Extrem: Other: No edema bilaterally Objective Data Active Medications Acetaminophen (Acetaminophen 325 Mg Tablet) 650 mg PO Q4H PRN PRN Reason: Headache/Pain, Scale 1-10 Last Admin: 11/28/24 17:43 Dose: 650 mg Documented By: HENRRY Ceftriaxone Sodium (Ceftriaxone Sodium 1 Gm Vial) 1 gm IVPUSH Q24H [facility] Last Admin: 11/28/24 23:25 Dose: 1 gm Documented By: ANU Enoxaparin Sodium (Enoxaparin Sodium 40 Mg/0.4 Ml Syringe) 40 mg SUBCUT Q24H [facility] Last Admin: 11/29/24 04:14 Dose: 40 mg Documented By: ANU Hydralazine HCl (Hydralazine Hcl 20 Mg/Ml Vial) 5 mg IVPUSH Q6H PRN; Protocol PRN Reason: SBP > 160 Last Admin: 11/27/24 22:19 Dose: 5 mg Documented By: ANU Hydromorphone HCl (Hydromorphone Hcl 1 Mg/Ml Syringe) 1 mg IVPUSH Q4H PRN; Protocol PRN Reason: Pain, Severe (Pain Scale 7-10) Last Admin: 11/29/24 13:38 Dose: 1 mg Documented By: HO.DABA Vancomycin HCl 1,000 mg/ (Sodium Chloride) 270 mls @ 270 mls/hr IV Q8H [facility] Last Infusion: 11/29/24 13:39 Dose: Infused Documented By: HENRRY Methadone HCl (Methadone Hcl 20 Mg/2 Ml Oral.Conc) 70 mg PO DAILY@0800 [facility] Last Admin: 11/29/24 07:24 Dose: 70 mg Documented By: HENRRY Co-signed By: NATE Pharmacy Consult (Consult Rx Vancomycin Dosing) 1 each MISCELLANE DAILY PRN PRN Reason: Consult order Labs 11/28/24 05:50 11/29/24 05:56 Labs: Laboratory Results - last 24 hr 11/28/24 11/29/24 18:58 05:56 Estim Creat Clear Calc 118.5 Estimated GFR > 60 Random Vancomycin 16.5 Microbiology Microbiology Results: Microbiology 11/27/24 05:57 Blood Culture - Preliminary Blood - Venous No growth after 48 hours. 11/27/24 05:57 Blood Culture - Preliminary Blood - Venous No growth after 48 hours. Assessment and Plan (1) MRSA bacteremia: Status: Acute (2) Cellulitis of right hand: Status: Acute (3) Urinary tract infection: Status: Acute (4) Endocarditis: Status: Acute Plan 34-year-old female with a past medical history of IV drug abuse/opiate abuse presented to the hospital today with a chief complaint of right hand pain redness and swelling. 1.MRSA bacteremia /right hand cellulitis with abscess + endocarditis: -vanco (10/23). .. Change ceftriaxone to oral Ceftin in a.m. -cultures negative times 48 hours -echo with small mitral valve vegetation, valve looks ok -s/p I&D right hand 11/26.. Ortho following -OT encourged per ortho 2.Polysubstance use disorder: -methadone as ordered 3.Acute UTI: -completed 6 days of ceftriaxone we will switch to Ceftin in a.m. as per 1. DVT prophylaxis: Lovenox Code status: Full code Reason for continued hospitalization: IV antibiotics Dispo: STR for IV abx Quality Stroke Does the patient have a stroke diagnosis?: No VTE Prior VTE?: No VTE Risk Level:: Medical - moderate - high VTE Device Contraindication: Patient Refused VTE Drug Contraindication: N/A - Med Ordered
--- NOTE | 2024-11-29 15:39 | MHC.RECOVRN ---
Met with pt to offer support regarding ASHLEY and bring personal hygiene supplies. Pt was showering on approach but voiced appreciation of toiletries provided and agreed to visit with TW later . Revisited patient several hours later and she was coloring in bed and watching Tv. Pt voiced appreciation once again for continued support and supplies. Pt asked if her clothing could be washed because it was wet from the rain prior to her admission and had been sitting in a bag in her room. TW took her clothing to to be washed and will return it to the pt once it is completed washing and drying. TW also contacted [facility] to establish a home clinic for methadone dosing as well as contacting [facility] in [place] to arrange guest dosing while pt [facility]. TW spoke with Melida at [facility] was was told she may need documentation from [facility] stating the pt was discharged from the facility but states she will check with her advertising supervisor in the morning and will call if further information is needed. TW will call [facility] in the morning to confirm guest dosing has been approved. TW available for any further questions, concerns or support as needed.
[2024-11-29 16:51] VITALS: BP 167/79; PULSE 58; RESP 17; TEMP 36.3; O2SAT 92
[2024-11-29 19:39] VITALS: BP 163/74; PULSE 64; RESP 16; TEMP 36.3; O2SAT 95
[2024-11-30 04:00] VITALS: BP 138/102; PULSE 64; RESP 14; TEMP 36.1; O2SAT 95
[2024-11-30 06:53] LABS: MANUAL DIFF FLAG NO
[2024-11-30 07:08] LABS: Hematocrit 32.3 % (37.0-47.0); Hemoglobin 10.4 g/dl (12.0-16.0); Imm Gran Abs Auto 0.01 X10*3/uL (0.00-0.03); Imm Gran Pct Auto 0.2 % (0.0-0.4); Lymphocytes Absolute Auto 2.3 X10*3/uL (1.2-4.9); Mean Corpuscular HGB Conc 32.2 g/dl (31.0-35.0); Mean Corpuscular Hemoglobin 30.0 pg (27.0-33.0); Mean Corpuscular Volume 93.1 fL (80.0-98.0); NRBC Abs Auto 0.000 X10*3/uL (0.0-0.012); NRBC Pct Auto 0.0 /100WBC (0.0-0.2); Platelet Count 280 X10*3/uL (160-400); Red Blood Count 3.47 X10*6/uL (4.20-5.50); White Blood Count 5.0 X10*3/uL (4.8-10.8)
[2024-11-30] MEDS: methADONE HCl 20 MG/2 ML ORAL.CONC 70 MG PO (07:18)
[2024-11-30 07:19] LABS: Creatinine Clr Calc Pharmacy 122.5; Estimated Glomerular Filt Rate > 60
[2024-11-30 07:40] VITALS: BP 139/61; PULSE 53; RESP 18; TEMP 36.2; O2SAT 98
--- NOTE | 2024-11-30 08:24 | PM.PNORT ---
Subjective Subjective Date of Service: 11/30/24 Interval history: Postop day 4 status post I and D of right hand Patient resting comfortably in bed Pain well managed No acute events overnight No other acute complaints or concerns at this time Physical Exam Vital Signs: Vital Signs: Last Vital Signs Temp 97.1 F 11/30/24 07:40 Pulse 53 11/30/24 07:40 Resp 18 11/30/24 07:40 BP 139/61 11/30/24 07:40 Pulse Ox 98 11/30/24 07:40 O2 Del Method Room Air 11/30/24 07:40 O2 Flow Rate 1 11/24/24 00:29 BMI result Body Mass Index 21.0 Extrem: Other: Patient is alert, oriented, and in no acute distress. Neuro: Normal sensation of the tips of all digits of the right hand at this time Vascular: Cap refill brisk Pain: Mild to Moderate tenderness to palpation throughout the right hand, worst in the dorsal aspect over the base of the thumb Some Pain with range of motion of the right hand ROM: Patient is not able to make a full closed fist at this time Skin: Dressing on right hand is clean, dry, intact There is no evidence of drainage soaking through dressing, surrounding erythema or ecchymosis General: Edema vastly improved, erythema slightly improved of the right hand Edema no longer extending into the arm Psych: Appears grossly normal Affect normal Attitude cooperative Procedures Date of Service Date of Service: 11/30/24 Progress Note: A&P Assessment and plan (1) Drug abuse, IV: Status: Acute (2) Cellulitis of right hand: Status: Acute (3) MRSA bacteremia: Status: Acute (4) Abscess of hand: Status: Acute Plan Continue pain management Daily dressing changes Continue IV antibiotics Encourage OT for early range of motion of the right hand Wound care has seen and evaluated patient, appreciate wound care and dressing recommendations Time Spent With Patient Time: Total time managing care of this patient today ____ minutes. Quality Stroke Does the patient have a stroke diagnosis?: No VTE Prior VTE?: No VTE Risk Level:: Medical - moderate - high VTE Device Contraindication: Patient Refused VTE Drug Contraindication: N/A - Med Ordered
--- NOTE | 2024-11-30 10:24 | MHC.RECOVRN ---
[facility] for pt and left message for return call. Also sent email requesting the same. Returned to office and has a voicemail from Lili at [facility] asking for a call back with no firther information left. Attempted to return the call and received Lili's voicemail. TW left a message asking for return call and requested a detailed email or voicemail in response if TW is unavailable to take her call when it comes in.
--- NOTE | 2024-11-30 10:42 | HO.ADDICTPRO ---
Subjective Subjective Date of Service: 11/30/24 Reason For Visit: Substance use Interim History: Patient seen in follow up for OUD Methadone dose has been at 70mg for several days. Today patient reporting discomfort. Seen by t/w patient awake, alert, well groomed. Reports some pain in her hand, and occasional body aches. Deneis any n/v. Denies issues with sleep Review of Systems Constitutional: Reports as per HPI and Reports no additional constitutional complaints Mental Status Exam Mental Status Exam Patient Appearance: Well Grooomed Level of Consciousness: Awake, Appropriate and Alert Patient Behavior: Appropriate and Talkative Affect Description: Calm Speech Pattern: Clear Hallucinations: None Delusions: Not Present Thought Content: positive for Intact Judgement: Fair Diagnostics Vital Signs (24Hr): Vital Signs - 24 hr 11/29/24 16:51 11/29/24 19:39 11/30/24 04:00 Temperature 97.3 F 97.3 F 97.0 F Pulse Rate 58 64 64 Respiratory Rate 17 16 14 Blood Pressure 167/79 H 163/74 H 138/102 H Pulse Oximetry 92 95 95 Oxygen Delivery Method Room Air Room Air Room Air 11/30/24 07:40 Temperature 97.1 F Pulse Rate 53 Respiratory Rate 18 Blood Pressure 139/61 Pulse Oximetry 98 Oxygen Delivery Method Room Air BMI result Body Mass Index 21.0 Labs 11/30/24 05:49 11/30/24 05:49 Labs: Laboratory Results - last 48 hr 11/28/24 11/29/24 11/29/24 18:58 05:56 18:52 WBC RBC Hgb Hct MCV MCH MCHC RDW Plt Count MPV Immature Gran % (Auto) Neut % (Auto) Lymph % (Auto) [place] % (Auto) Eos % (Auto) Baso % (Auto) Lymph # (Auto) [place] # (Auto) Eos # (Auto) Baso # (Auto) Abs Immat Gran (auto) Absolute Neuts (auto) Absolute Nucleated RBC Nucleated RBC % (auto) Creatinine 0.61 Estim Creat Clear Calc 118.5 Estimated GFR > 60 Vancomycin Trough 18.2 Random Vancomycin 16.5 11/30/24 05:49 WBC 5.0 RBC 3.47 L Hgb 10.4 L Hct 32.3 L MCV 93.1 MCH 30.0 MCHC 32.2 RDW 12.3 Plt Count 280 MPV 9.6 Immature Gran % (Auto) 0.2 Neut % (Auto) 36.9 L Lymph % (Auto) 45.9 H [place] % (Auto) 9.2 Eos % (Auto) 7.2 H Baso % (Auto) 0.6 Lymph # (Auto) 2.3 [place] # (Auto) 0.5 Eos # (Auto) 0.4 Baso # (Auto) 0.0 Abs Immat Gran (auto) 0.01 Absolute Neuts (auto) 1.9 L Absolute Nucleated RBC 0.000 Nucleated RBC % (auto) 0.0 Creatinine 0.59 Estim Creat Clear Calc 122.5 Estimated GFR > 60 Vancomycin Trough Random Vancomycin Imaging Radiology Impressions: ITS Impressions Extremity Ultrasound 11/24/24 11:55 IMPRESSION: 1. Soft tissue swelling of the dorsum of the right hand in the area of interest, with a subcutaneous thin lentiform complex fluid collection measuring 2.8 x 0.4 x 2.4 cm. This may or may not be amenable to percutaneous drainage. Electronically signed by: Josh Christianson MD 11/24/2024 12:20 PM EDT RP Chest X-Ray 11/29/24 15:49 IMPRESSION: 1. Malpositioned left-sided PICC catheter as detailed. 2. No active pulmonary disease. Electronically signed by: Josh Christianson MD 11/29/2024 04:19 PM EDT RP Medications Medications Current Medications Acetaminophen (Acetaminophen 325 Mg Tablet) 650 mg PO Q4H PRN PRN Reason: Headache/Pain, Scale 1-10 Last Admin: 11/28/24 17:43 Dose: 650 mg Ceftriaxone Sodium (Ceftriaxone Sodium 1 Gm Vial) 1 gm IVPUSH Q24H [facility] Last Admin: 11/29/24 23:11 Dose: 1 gm Enoxaparin Sodium (Enoxaparin Sodium 40 Mg/0.4 Ml Syringe) 40 mg SUBCUT Q24H [facility] Last Admin: 11/30/24 03:43 Dose: 40 mg Hydralazine HCl (Hydralazine Hcl 20 Mg/Ml Vial) 5 mg IVPUSH Q6H PRN; Protocol PRN Reason: SBP > 160 Last Admin: 11/27/24 22:19 Dose: 5 mg Hydromorphone HCl (Hydromorphone Hcl 1 Mg/Ml Syringe) 1 mg IVPUSH Q6H PRN; Protocol PRN Reason: Pain, Severe (Pain Scale 7-10) Last Admin: 11/30/24 09:45 Dose: 1 mg Vancomycin HCl 750 mg/ Sodium (Chloride) 265 mls @ 265 mls/hr IV Q8H [facility] Last Infusion: 11/30/24 05:31 Dose: Infused Methadone HCl (Methadone Hcl 20 Mg/2 Ml Oral.Conc) 10 mg PO ONCE ONE Stop: 11/30/24 10:41 Methadone HCl (Methadone Hcl 20 Mg/2 Ml Oral.Conc) 80 mg PO DAILY@0800 [facility] Oxycodone HCl (Oxycodone Hcl Immed Release 5 Mg Tablet) 10 mg PO Q4H PRN PRN Reason: Pain, Moderate(Pain Scale 4-6) Pharmacy Consult (Consult Rx Vancomycin Dosing) 1 each MISCELLANE DAILY PRN PRN Reason: Consult order Allergies Allergies Allergy/AdvReac Type Severity Reaction Status Date / Time No Known Allergies Allergy Verified 11/23/24 23:22 Assessment & Plan Assessment & Plan (1) Opioid use disorder: Status: Acute Code(s): F11.90 - Opioid use, unspecified, uncomplicated Assessment and Plan: methadone 10mg X1 (total of 80mg today) Methadone 85mg QD 12/01 --titration to continue outpatient Total time managing care of this patient today __15__ minutes.
[2024-11-30] MEDS: methADONE HCl 20 MG/2 ML ORAL.CONC 10 MG PO (10:56)
--- NOTE | 2024-11-30 10:57 | MHC.RECOVRN ---
per Lili at [facility]: pt is all set for guest dosing
[2024-11-30] MEDS: oxyCODONE HCl Immed Release 5 MG TABLET 10 MG PO ×4 (11:31→23:49)
--- NOTE | 2024-11-30 13:44 | P.PNIM_ITS ---
Subjective Subjective Date of Service: 11/30/24 Interval History: No acute issues overnight. Pain control adequate Review of Systems Denies chest pain Denies shortness of breath Denies nausea vomiting diarrhea Denies fever chills Physical Exam 2 Vital Signs: Vital Signs: Last Vital Signs Temp 97.1 F 11/30/24 07:40 Pulse 53 11/30/24 07:40 Resp 18 11/30/24 07:40 BP 139/61 11/30/24 07:40 Pulse Ox 98 11/30/24 07:40 O2 Del Method Room Air 11/30/24 07:40 O2 Flow Rate 1 11/24/24 00:29 BMI result Body Mass Index 21.0 Const: Other: Awake alert oriented x3 in no acute distress Resp: Other: Clear to auscultation bilaterally no rales rhonchi or wheezes Cardio: Other: No S4; positive S1-S2; no S3 murmurs rubs or gallops GI: Other: Soft nontender nondistended normoactive bowel sounds Extrem: Other: No edema bilaterally Objective Data Active Medications Acetaminophen (Acetaminophen 325 Mg Tablet) 650 mg PO Q4H PRN PRN Reason: Headache/Pain, Scale 1-10 Last Admin: 11/28/24 17:43 Dose: 650 mg Documented By: HENRRY Ceftriaxone Sodium (Ceftriaxone Sodium 1 Gm Vial) 1 gm IVPUSH Q24H [facility] Last Admin: 11/29/24 23:11 Dose: 1 gm Documented By: ANU Enoxaparin Sodium (Enoxaparin Sodium 40 Mg/0.4 Ml Syringe) 40 mg SUBCUT Q24H [facility] Last Admin: 11/30/24 03:43 Dose: 40 mg Documented By: ANU Hydralazine HCl (Hydralazine Hcl 20 Mg/Ml Vial) 5 mg IVPUSH Q6H PRN; Protocol PRN Reason: SBP > 160 Last Admin: 11/27/24 22:19 Dose: 5 mg Documented By: ANU Hydromorphone HCl (Hydromorphone Hcl 1 Mg/Ml Syringe) 1 mg IVPUSH Q6H PRN; Protocol PRN Reason: Pain, Severe (Pain Scale 7-10) Last Admin: 11/30/24 09:45 Dose: 1 mg Documented By: HENRRY Vancomycin HCl 750 mg/ Sodium (Chloride) 265 mls @ 265 mls/hr IV Q8H [facility] Last Infusion: 11/30/24 13:40 Dose: Infused Documented By: HENRRY Methadone HCl (Methadone Hcl 20 Mg/2 Ml Oral.Conc) 80 mg PO DAILY@0800 [facility] Oxycodone HCl (Oxycodone Hcl Immed Release 5 Mg Tablet) 10 mg PO Q4H PRN PRN Reason: Pain, Moderate(Pain Scale 4-6) Last Admin: 11/30/24 11:31 Dose: 10 mg Documented By: HENRRY Pharmacy Consult (Consult Rx Vancomycin Dosing) 1 each MISCELLANE DAILY PRN PRN Reason: Consult order Labs 11/30/24 05:49 11/30/24 05:49 Labs: Laboratory Results - last 24 hr 11/29/24 11/30/24 18:52 05:49 MCV 93.1 MCH 30.0 MCHC 32.2 RDW 12.3 Plt Count 280 MPV 9.6 Immature Gran % (Auto) 0.2 Neut % (Auto) 36.9 L Lymph % (Auto) 45.9 H Wake % (Auto) 9.2 Eos % (Auto) 7.2 H Baso % (Auto) 0.6 Lymph # (Auto) 2.3 Wake # (Auto) 0.5 Eos # (Auto) 0.4 Baso # (Auto) 0.0 Abs Immat Gran (auto) 0.01 Absolute Neuts (auto) 1.9 L Absolute Nucleated RBC 0.000 Nucleated RBC % (auto) 0.0 Estim Creat Clear Calc 122.5 Estimated GFR > 60 Vancomycin Trough 18.2 Assessment and Plan (1) MRSA bacteremia: Status: Acute (2) Cellulitis of right hand: Status: Acute (3) Endocarditis: Status: Acute Plan 34-year-old female with a past medical history of IV drug abuse/opiate abuse presented to the hospital today with a chief complaint of right hand pain redness and swelling. 1.MRSA bacteremia /right hand cellulitis with abscess + endocarditis: -vanco (11/22). .. Change ceftriaxone to oral Ceftin -cultures negative times 48 hours -echo with small mitral valve vegetation, valve looks ok -s/p I&D right hand 11/26.. Ortho following -OT encourged per ortho -PICC in am 2.Polysubstance use disorder: -methadone as ordered 3.Acute UTI: -complete a treatment DVT prophylaxis: Lovenox Code status: Full code Reason for continued hospitalization: IV antibiotics Dispo: STR for IV abx Quality Stroke Does the patient have a stroke diagnosis?: No VTE Prior VTE?: No VTE Risk Level:: Medical - moderate - high VTE Device Contraindication: Patient Refused VTE Drug Contraindication: N/A - Med Ordered
[2024-11-30 14:58] VITALS: BP 136/61; PULSE 65; RESP 18; TEMP 36.3; O2SAT 94
--- NOTE | 2024-11-30 15:59 | MHC.CM.PN ---
PT IS AWARE EVERYTHING IS SET FOR HER TO GO TO [facility] SOON HER LINE IS PLACED PER IR, THEY WERE UNABLE TO PLACE LINE TODAY THERE ARE ONLY TWO OF THEM AND THEY ARE ALREADY BOOKED PT AWARE IT WILL BE DONE TOMORROW AND SHE WILL DC VIA BLS AFTER
--- NOTE | 2024-11-30 17:32 | PC.NURSE ---
Dressing of right hand changed twice today due to pt taking dressing down and touching wound this rn instructed pt not to touch dressing. Second time pt rang call cm , hand bleeding , pt states its itchy . This Rn instructed pt not to touch wound again .Wound nurse made aware .
[2024-11-30 18:58] VITALS: BP 110/66; PULSE 52; RESP 18; TEMP 36; O2SAT 96
[2024-12-01 03:28] VITALS: BP 105/53; PULSE 54; RESP 18; TEMP 36.3; O2SAT 97
[2024-12-01 06:11] LABS: Creatinine Clr Calc Pharmacy 111.2; Estimated Glomerular Filt Rate > 60
[2024-12-01] MEDS: oxyCODONE HCl Immed Release 5 MG TABLET 10 MG PO ×4 (06:50→20:05)
[2024-12-01 07:58] VITALS: BP 117/62; PULSE 61; RESP 16; TEMP 36.3; O2SAT 97
[2024-12-01] MEDS: methADONE HCl 20 MG/2 ML ORAL.CONC 80 MG PO (07:59)
--- NOTE | 2024-12-01 09:51 | P.PNOP_ITS ---
Subjective Subjective Date of Service: 12/01/24 Interval history: Postop day 5 status post I and D of right hand Patient resting comfortably in bed Pain well managed No acute events overnight No other acute complaints or concerns at this time Physical Exam Vital Signs: Vital Signs: Last Vital Signs Temp 97.3 F 12/01/24 07:58 Pulse 61 12/01/24 07:58 Resp 16 12/01/24 07:58 BP 117/62 12/01/24 07:58 Pulse Ox 97 12/01/24 07:58 O2 Del Method Room Air 12/01/24 07:58 O2 Flow Rate 1 11/24/24 00:29 BMI result Body Mass Index 21.0 Extrem: Other: Patient is alert, oriented, and in no acute distress. Neuro: Normal sensation of the tips of all digits of the right hand at this time Vascular: Cap refill brisk Pain: Mild to Moderate tenderness to palpation throughout the right hand, worst in the dorsal aspect over the base of the thumb Some Pain with range of motion of the right hand ROM: Patient is not able to make a full closed fist at this time Skin: Dressing on right hand is clean, dry, intact Once dressing is removed, the area of violaceous erythema that has been qureshi rrounding the wound does appear to have shrunk slightly Minimal drainage noted from the wound at this time Area of ulceration does appear to be slightly smaller and shallower than previous evaluation There is no evidence of drainage soaking through dressing, surrounding erythema or ecchymosis General: Edema vastly improved, erythema slightly improved of the right hand Edema no longer extending into the arm Psych: Appears grossly normal Affect normal Attitude cooperative Procedures Date of Service Date of Service: 12/01/24 Progress Note: A&P Assessment and plan (1) Drug abuse, IV: Status: Acute (2) Cellulitis of right hand: Status: Acute (3) MRSA bacteremia: Status: Acute (4) Abscess of hand: Status: Acute Plan Continue pain management Dressing changed today Daily dressing changes Continue IV antibiotics Encourage OT for early range of motion of the right hand Wound care has seen and evaluated patient, appreciate wound care and dressing recommendations Continue with all other recommendations per Medicine, as the patient has been found to have endocarditis as well as MRSA bacteremia Time Spent With Patient Time: Total time managing care of this patient today ____ minutes. Quality Stroke Does the patient have a stroke diagnosis?: No VTE Prior VTE?: No VTE Risk Level:: Medical - moderate - high VTE Device Contraindication: Patient Refused VTE Drug Contraindication: N/A - Med Ordered
--- NOTE | 2024-12-01 11:53 | HO.PM.IMPN ---
Subjective Subjective Date of Service: 12/01/24 Interval History: No acute issues overnight. Review of Systems Denies chest pain Denies shortness of breath Denies nausea vomiting diarrhea Denies fever chills Physical Exam Vital Signs: Vital Signs: Last Vital Signs Temp 97.3 F 12/01/24 07:58 Pulse 61 12/01/24 07:58 Resp 16 12/01/24 07:58 BP 117/62 12/01/24 07:58 Pulse Ox 97 12/01/24 07:58 O2 Del Method Room Air 12/01/24 07:58 O2 Flow Rate 1 11/24/24 00:29 BMI result Body Mass Index 21.0 Const: Other: Awake alert oriented x3 in no acute distress Resp: Other: Clear to auscultation bilaterally no rales rhonchi or wheezes Cardio: Other: No S4; positive S1-S2; no S3 murmurs rubs or gallops GI: Other: Soft nontender nondistended normoactive bowel sounds Extrem: Other: No edema bilaterally Objective Data Active Medications Acetaminophen (Acetaminophen 325 Mg Tablet) 650 mg PO Q4H PRN PRN Reason: Headache/Pain, Scale 1-10 Last Admin: 12/01/24 10:48 Dose: 650 mg Documented By: PASCALE Ceftriaxone Sodium (Ceftriaxone Sodium 1 Gm Vial) 1 gm IVPUSH Q24H [facility] Last Admin: 11/30/24 23:49 Dose: 1 gm Documented By: ANU Enoxaparin Sodium (Enoxaparin Sodium 40 Mg/0.4 Ml Syringe) 40 mg SUBCUT Q24H [facility] Last Admin: 12/01/24 04:09 Dose: 40 mg Documented By: ANU Hydralazine HCl (Hydralazine Hcl 20 Mg/Ml Vial) 5 mg IVPUSH Q6H PRN; Protocol PRN Reason: SBP > 160 Last Admin: 11/27/24 22:19 Dose: 5 mg Documented By: ANU Hydromorphone HCl (Hydromorphone Hcl 1 Mg/Ml Syringe) 1 mg IVPUSH Q6H PRN; Protocol PRN Reason: Pain, Severe (Pain Scale 7-10) Last Admin: 12/01/24 04:14 Dose: 1 mg Documented By: ANU Vancomycin HCl 750 mg/ Sodium (Chloride) 265 mls @ 265 mls/hr IV Q8H [facility] Last Infusion: 12/01/24 05:13 Dose: Infused Documented By: ANU Methadone HCl (Methadone Hcl 20 Mg/2 Ml Oral.Conc) 80 mg PO DAILY@0800 [facility] Last Admin: 12/01/24 07:59 Dose: 80 mg Documented By: MARGUERITE Co-signed By: PASCALE Oxycodone HCl (Oxycodone Hcl Immed Release 5 Mg Tablet) 10 mg PO Q4H PRN PRN Reason: Pain, Moderate(Pain Scale 4-6) Last Admin: 12/01/24 10:48 Dose: 10 mg Documented By: PASCALE Pharmacy Consult (Consult Rx Vancomycin Dosing) 1 each MISCELLANE DAILY PRN PRN Reason: Consult order Zolpidem Tartrate (Zolpidem Tartrate 5 Mg Tablet) 5 mg PO BEDTIME PRN PRN Reason: Insomnia Last Admin: 12/01/24 00:12 Dose: 5 mg Documented By: ANU Labs 11/30/24 05:49 12/01/24 05:03 Labs: Laboratory Results - last 24 hr 11/30/24 12/01/24 18:56 05:03 Hold Purple Top SEE NOTE Estim Creat Clear Calc 111.2 Estimated GFR > 60 Random Vancomycin 15.7 Assessment and Plan (1) Cellulitis of right hand: Status: Acute (2) Endocarditis: Status: Acute (3) MRSA bacteremia: Status: Acute Plan 34-year-old female with a past medical history of IV drug abuse/opiate abuse presented to the hospital today with a chief complaint of right hand pain redness and swelling. 1.MRSA bacteremia /right hand cellulitis with abscess + endocarditis: -vanco (12/23). .. Change ceftriaxone to oral Ceftin -cultures negative times 48 hours -echo with small mitral valve vegetation, valve looks ok -s/p I&D right hand 11/26.. Ortho following -OT encourged per ortho -PICC in am 2.Polysubstance use disorder: -methadone as ordered 3.Acute UTI: -complete a treatment DVT prophylaxis: Lovenox Code status: Full code Reason for continued hospitalization: IV antibiotics Dispo: STR for IV abx Quality Stroke Does the patient have a stroke diagnosis?: No VTE Prior VTE?: No VTE Risk Level:: Medical - moderate - high VTE Device Contraindication: Patient Refused VTE Drug Contraindication: N/A - Med Ordered
--- NOTE | 2024-12-01 12:07 | MHC.RECOVRN ---
TW spoke with professor of nursing, Jina at [facility] who states she needs guest dosing paperwork from [facility], despite pt being started on methadone while inpatient [place] [facility]. TW also reached out to Rao Rey @ [facility] for assitance and is awaiting response. CM made aware.
[2024-12-01 16:00] VITALS: BP 134/63; PULSE 62; RESP 18; TEMP 36.1; O2SAT 96
[2024-12-01 18:55] VITALS: BP 119/56; PULSE 62; RESP 18; TEMP 36.2; O2SAT 92
--- NOTE | 2024-12-01 22:30 | PC.NURSE ---
Vanco trough came back low at 13.7, Pharmacy called to be sure they are not increasing vanco dose, no change per pharmacy, Vanco given at 2320.
[2024-12-02 04:00] VITALS: BP 122/56; PULSE 60; RESP 18; TEMP 36.3; O2SAT 96
[2024-12-02 06:54] LABS: Creatinine Clr Calc Pharmacy 104.8; Estimated Glomerular Filt Rate > 60
[2024-12-02 07:37] VITALS: BP 116/58; PULSE 61; RESP 18; TEMP 36.2; O2SAT 97
[2024-12-02] MEDS: methADONE HCl 20 MG/2 ML ORAL.CONC 80 MG PO (07:41)
--- NOTE | 2024-12-02 13:12 | HO.PM.IMPN ---
Subjective Subjective Date of Service: 12/02/24 Interval History: No acute issues overnight. Awaiting rehab Review of Systems Denies chest pain Denies shortness of breath Denies nausea vomiting diarrhea Denies fever chills Physical Exam Vital Signs: Vital Signs: Last Vital Signs Temp 97.1 F 12/02/24 07:37 Pulse 61 12/02/24 07:37 Resp 18 12/02/24 07:37 BP 116/58 L 12/02/24 07:37 Pulse Ox 97 12/02/24 07:37 O2 Del Method Room Air 12/02/24 07:37 O2 Flow Rate 1 11/24/24 00:29 BMI result Body Mass Index 21.0 Const: Other: Awake alert oriented x3 in no acute distress Resp: Other: Clear to auscultation bilaterally no rales rhonchi or wheezes Cardio: Other: No S4; positive S1-S2; no S3 murmurs rubs or gallops GI: Other: Soft nontender nondistended normoactive bowel sounds Extrem: Other: No edema bilaterally Objective Data Active Medications Acetaminophen (Acetaminophen 325 Mg Tablet) 650 mg PO Q4H PRN PRN Reason: Headache/Pain, Scale 1-10 Last Admin: 12/01/24 20:05 Dose: 650 mg Documented By: DESIRE Ceftriaxone Sodium (Ceftriaxone Sodium 1 Gm Vial) 1 gm IVPUSH Q24H [facility] Last Admin: 12/01/24 23:38 Dose: 1 gm Documented By: DESIRE Enoxaparin Sodium (Enoxaparin Sodium 40 Mg/0.4 Ml Syringe) 40 mg SUBCUT Q24H [facility] Last Admin: 12/02/24 02:59 Dose: 40 mg Documented By: DESIRE Hydralazine HCl (Hydralazine Hcl 20 Mg/Ml Vial) 5 mg IVPUSH Q6H PRN; Protocol PRN Reason: SBP > 160 Last Admin: 11/27/24 22:19 Dose: 5 mg Documented By: ANU Hydromorphone HCl (Hydromorphone Hcl 1 Mg/Ml Syringe) 1 mg IVPUSH Q6H PRN; Protocol PRN Reason: Pain, Severe (Pain Scale 7-10) Last Admin: 12/01/24 18:02 Dose: 1 mg Documented By: MAGRUERITE Vancomycin HCl 750 mg/ Sodium (Chloride) 265 mls @ 265 mls/hr IV Q8H [facility] Last Infusion: 12/02/24 08:11 Dose: Infused Documented By: SAMMY Methadone HCl (Methadone Hcl 20 Mg/2 Ml Oral.Conc) 80 mg PO DAILY@0800 [facility] Last Admin: 12/02/24 07:41 Dose: 80 mg Documented By: SAMMY Co-signed By: DOMO Oxycodone HCl (Oxycodone Hcl Immed Release 5 Mg Tablet) 10 mg PO Q4H PRN PRN Reason: Pain, Moderate(Pain Scale 4-6) Last Admin: 12/01/24 20:05 Dose: 10 mg Documented By: DESIRE Comments: per pt request oxycodone for 12/03 Pharmacy Consult (Consult Rx Vancomycin Dosing) 1 each MISCELLANE DAILY PRN PRN Reason: Consult order Zolpidem Tartrate (Zolpidem Tartrate 5 Mg Tablet) 5 mg PO BEDTIME PRN PRN Reason: Insomnia Last Admin: 12/01/24 22:19 Dose: 5 mg Documented By: DESIRE Labs 11/30/24 05:49 12/02/24 06:13 Labs: Laboratory Results - last 24 hr 12/01/24 12/02/24 12/02/24 21:07 06:13 06:33 Hold Purple Top SEE NOTE Estim Creat Clear Calc 104.8 Estimated GFR > 60 Random Vancomycin 13.7 L Microbiology Microbiology Results: Microbiology 11/27/24 05:57 Blood Culture - Final Blood - Venous No growth after 5 days. 11/27/24 05:57 Blood Culture - Final Blood - Venous No growth after 5 days. Assessment and Plan (1) MRSA bacteremia: Status: Acute (2) Cellulitis of right hand: Status: Acute Plan 34-year-old female with a past medical history of IV drug abuse/opiate abuse presented to the hospital today with a chief complaint of right hand pain redness and swelling. 1.MRSA bacteremia /right hand cellulitis with abscess + endocarditis: -flores (01/23). .. Change ceftriaxone to oral Ceftin -cultures negative times 48 hours -echo with small mitral valve vegetation, valve looks ok -s/p I&D right hand 11/26.. Ortho following -OT encourged per ortho -PICC in am 2.Polysubstance use disorder: -methadone as ordered 3.Acute UTI: -complete a treatment DVT prophylaxis: Lovenox Code status: Full code Reason for continued hospitalization: IV antibiotics Dispo: STR for IV abx Quality Stroke Does the patient have a stroke diagnosis?: No VTE Prior VTE?: No VTE Risk Level:: Medical - moderate - high VTE Device Contraindication: Patient Refused VTE Drug Contraindication: N/A - Med Ordered
--- NOTE | 2024-12-02 14:39 | MHC.RECOVRN ---
Met with pt. in 354-1 to f/u and offer support. Pt resting in bed but appears restless and uncomfortable. Alert and oriented and responding to voice. No reports of pain management issues. When I ask her if her current methadone dose is effective with managing her OUD she replies not really . She reports symptoms of restlessness especially in her legs and sweating. This is also observed by this quality analyst/technical writer. T/W reached out to Aranza Lloyd NP re: increase in methadone vs. med to manage restlessness. Awaiting reply. No further expressed needs at this time. ACS to continue to follow and offer support while admitted.
[2024-12-02 15:17] VITALS: BP 135/74; PULSE 74; RESP 18; TEMP 36.7; O2SAT 96
--- NOTE | 2024-12-02 16:37 | MHC.RECOVRN ---
Received recommendation from Aranza Lloyd NP to request an additional 10mg of methadone this PM and TDD of 90mg starting tomorrow. Messaged Dr. Bai with request. Informed pt. Will f/u with pt. tomorrow.
[2024-12-02 19:19] VITALS: BP 139/86; PULSE 83; RESP 18; TEMP 36.4; O2SAT 97
[2024-12-03 03:04] VITALS: BP 135/59; PULSE 69; RESP 18; TEMP 36.4; O2SAT 97
[2024-12-03 06:22] LABS: Creatinine Clr Calc Pharmacy 114.8; Estimated Glomerular Filt Rate > 60
[2024-12-03 07:24] VITALS: BP 120/60; PULSE 74; RESP 18; TEMP 36.2; O2SAT 97
[2024-12-03] MEDS: oxyCODONE HCl Immed Release 5 MG TABLET 10 MG PO (08:27)
[2024-12-03] MEDS: methADONE HCl 20 MG/2 ML ORAL.CONC 90 MG PO (08:28)
--- NOTE | 2024-12-03 11:49 | PM.DS ---
DS: Providers Provider Date of admission: 11/24/24 04:08 Primary care physician: Unknown Physician Consults: 11/24/24 03:26 Addiction Medicine Provider Routine Consulting Provider: Addiction Covering Reason for consultation: heroin abuse 11/24/24 13:37 Consult to Wound Care Routine Reason for consultation: cellulitis 11/25/24 08:13 Consult to Orthopedics Routine Consulting Provider: [facility] Reason for consultation: hand abscess 11/25/24 09:14 Consult to Infectious Diseases Routine Consulting Provider: [facility] Reason for consultation: mrsa bacteremia 11/28/24 09:22 Consult to Wound Care Routine Reason for consultation: Status post I and D of right hand, question Xylazine DS: Diagnosis Discharge Diagnosis (1) MRSA bacteremia: Status: Acute (2) Cellulitis of right hand: Status: Acute DS: Summary Hospital Course Hospital Course: 34-year-old female with a past medical history of IV drug abuse/opiate abuse presented to the hospital today with a chief complaint of right hand pain redness and swelling. Patient mentioned about 2 days ago she injured her right hand since then she has been having redness and swelling. Mentions that she missed her IV line and inject into the hand at the time. Mentioned that she uses heroin regularly and prior to coming to the hospital she used 3 heroin bags. Today she was changed with the police and subsequently ambulance was called and brought her to the hospital for further evaluation. Reports that over the few days she has been having dysuria and was diagnosed with UTI, given antibiotics as outpatient but she could not fill it up due to insurance concerns. ER course: Per ER team, patient noted to have right hand pain redness and swelling; x-ray showed evidence of foreign body; patient able to move her fingers and the wrist without any difficulty; urinalysis abnormal cluster with UTI. Given vancomycin and ceftriaxone. Hospital course Patient was admitted and seen in consultation by Orthopedics; on 11/26 patient underwent I and D by Dr. Oliver. She originally culture on 11/23/2024 and found to have 2/2 blood cultures with MRSA. Subsequent culture of I and deed demonstrated MRSA as well. She was maintained on vancomycin and ceftriaxone and seen by ID who recommended completion of ceftriaxone and 30 days of vancomycin. Patient underwent PICC line and we will complete her course of vancomycin as ordered Physical Exam Vital Signs: Vital Signs: Last Vital Signs Temp 97.1 F 12/03/24 07:24 Pulse 74 12/03/24 07:24 Resp 18 12/03/24 07:24 BP 120/60 12/03/24 07:24 Pulse Ox 97 12/03/24 07:24 O2 Del Method Room Air 12/03/24 07:24 O2 Flow Rate 1 11/24/24 00:29 BMI result Body Mass Index 21.0 DS: Data Data Completed and Pending Completed studies during hospitalization [Text1]: Procedures Drainage of Left Hand, Open Approach (05/17/23) Labs on day of discharge: Laboratory Results - last 24 hr 12/02/24 12/03/24 20:59 05:33 Hold Purple Top SEE NOTE Creatinine 0.63 Estim Creat Clear Calc 114.8 Estimated GFR > 60 Random Vancomycin 16.1 Discharge Plan Discharge Referrals: Physician,Unknown J [Primary Care Provider, Medical] - 1 Week Discharge Medications: No Action No Known Home Meds Print Language: Portuguese
[2024-12-03 15:02] VITALS: BP 122/56; PULSE 67; RESP 18; TEMP 36.9; O2SAT 96
--- NOTE | 2024-12-03 16:05 | PM.EVENT ---
Event Note Date of Service: 12/03/24 Event Note: Nurse Jacques performed dressing change today without concerns. Attached is update on wound. Time Spent With Patient Time: Total time managing care of this patient today ____ minutes.
--- NOTE | 2024-12-03 16:22 | MHC.RECOVRN ---
T/W met with pt. in to check on methadone increase and offer support. Pt sitting in bed coloring. When asked if she felt the increase in methadone was helping she stated I don't know Pt appeared less anxious/restless as she had been coloring and was able to focus on that. Pt is still being treated for infection and receiving regular pain medications. Pt did look minimally sedated and due to that and her decreased W/D sx any increases in methadone will not be recommended at this time. ACS will continue to monitor and recommend dose changes PRN.
[2024-12-03 19:07] VITALS: BP 125/61; PULSE 65; RESP 18; TEMP 36.6; O2SAT 98
[2024-12-04 03:47] VITALS: BP 131/76; PULSE 70; RESP 18; TEMP 36.3; O2SAT 97
[2024-12-04 06:44] LABS: Creatinine Clr Calc Pharmacy 113.0; Estimated Glomerular Filt Rate > 60
[2024-12-04 07:19] VITALS: BP 119/58; PULSE 68; RESP 18; TEMP 36.6; O2SAT 97
[2024-12-04] MEDS: methADONE HCl 20 MG/2 ML ORAL.CONC 90 MG PO (07:27)
--- NOTE | 2024-12-04 09:34 | HO.PM.IMPN ---
Subjective Subjective Date of Service: 12/04/24 Review of Systems Follow up MRSA bacteremia no pain or discomfort Physical Exam Exam: Exam: Appearing in no acute distress lung sounds are clear to auscultation heart regular rate rhythm, clear S1, S2 positive bowel sounds, abdomen is soft, nontender neuro patient is alert x3, no focal deficits Vital Signs: Vital Signs: Last Vital Signs Temp 97.9 F 12/04/24 07:19 Pulse 68 12/04/24 07:19 Resp 18 12/04/24 07:19 BP 119/58 L 12/04/24 07:19 Pulse Ox 97 12/04/24 07:19 O2 Del Method Room Air 12/04/24 07:19 O2 Flow Rate 1 11/24/24 00:29 BMI result Body Mass Index 21.0 Objective Data Active Medications Acetaminophen (Acetaminophen 325 Mg Tablet) 650 mg PO Q4H PRN PRN Reason: Headache/Pain, Scale 1-10 Last Admin: 12/01/24 20:05 Dose: 650 mg Documented By: DESIRE Ceftriaxone Sodium (Ceftriaxone Sodium 1 Gm Vial) 1 gm IVPUSH Q24H [facility] Last Admin: 12/03/24 23:29 Dose: 1 gm Documented By: DESIRE Enoxaparin Sodium (Enoxaparin Sodium 40 Mg/0.4 Ml Syringe) 40 mg SUBCUT Q24H [facility] Last Admin: 12/04/24 03:27 Dose: 40 mg Documented By: DESIRE Hydralazine HCl (Hydralazine Hcl 20 Mg/Ml Vial) 5 mg IVPUSH Q6H PRN; Protocol PRN Reason: SBP > 160 Last Admin: 11/27/24 22:19 Dose: 5 mg Documented By: ANU Hydromorphone HCl (Hydromorphone Hcl 1 Mg/Ml Syringe) 1 mg IVPUSH Q6H PRN; Protocol PRN Reason: Pain, Severe (Pain Scale 7-10) Last Admin: 12/04/24 06:22 Dose: 1 mg Documented By: DESIRE Vancomycin HCl 750 mg/ Sodium (Chloride) 265 mls @ 265 mls/hr IV Q8H [facility] Last Infusion: 12/04/24 07:27 Dose: Infused Documented By: MARGUERITE Methadone HCl (Methadone Hcl 20 Mg/2 Ml Oral.Conc) 90 mg PO DAILY@0800 [facility] Last Admin: 12/04/24 07:27 Dose: 90 mg Documented By: MARGUERITE Co-signed By: ALISHA Oxycodone HCl (Oxycodone Hcl Immed Release 5 Mg Tablet) 10 mg PO Q4H PRN PRN Reason: Pain, Moderate(Pain Scale 4-6) Last Admin: 12/03/24 08:27 Dose: 10 mg Documented By: SAMMY Zolpidem Tartrate (Zolpidem Tartrate 5 Mg Tablet) 5 mg PO BEDTIME PRN PRN Reason: Insomnia Last Admin: 12/03/24 23:30 Dose: 5 mg Documented By: NATALILANDV Labs 11/30/24 05:49 12/04/24 06:13 Labs: Laboratory Results - last 24 hr 12/03/24 12/04/24 21:09 06:13 Hold Purple Top SEE NOTE Estim Creat Clear Calc 113.0 Estimated GFR > 60 Random Vancomycin 15.5 Assessment and Plan (1) Drug abuse, IV: Status: Acute Plan 34-year-old female with a past medical history of IV drug abuse/opiate abuse presented to the hospital today with a chief complaint of right hand pain redness and swelling. MRSA bacteremia /right hand cellulitis with abscess + endocarditis continue vanco for 4 weeks Continue Rocephin, switch to ceftin o/p repeat blood cultures negative hand cx MRSA echo with small mitral valve vegetation, valve looks ok s/p I&D right hand 11/26, Ortho following OT PICC line placed Ecoli UTI completed tx Polysubstance use disorder methadone Seen by addiction team DVT prophylaxis: Lovenox Code status: Full code Dispo: STR for IV abx when bed available Quality Stroke Does the patient have a stroke diagnosis?: No VTE Prior VTE?: No VTE Risk Level:: Medical - moderate - high VTE Device Contraindication: Patient Refused VTE Drug Contraindication: N/A - Med Ordered
[2024-12-04] MEDS: oxyCODONE HCl Immed Release 5 MG TABLET 10 MG PO ×2 (09:55→14:11)
--- NOTE | 2024-12-04 12:21 | P.DS_ITS ---
DS: Providers Provider Date of Service: 12/04/24 Date of admission: 11/24/24 04:08 Date of discharge: 12/04/24 Primary care physician: Unknown Physician Consults: 11/24/24 03:26 Addiction Medicine Provider Routine Consulting Provider: Addiction Covering Reason for consultation: heroin abuse 11/24/24 13:37 Consult to Wound Care Routine Reason for consultation: cellulitis 11/25/24 08:13 Consult to Orthopedics Routine [place]ing [place] [facility] Reason for consultation: hand abscess 11/25/24 09:14 Consult to Infectious Diseases Routine Consulting Provider: [facility] Reason for consultation: mrsa bacteremia 11/28/24 09:22 Consult to Wound Care Routine Reason for consultation: Status post I and D of right hand, question Xylazine DS: Diagnosis Discharge Diagnosis (1) Drug abuse, IV: Status: Acute DS: Summary Hospital Course Hospital Course: History and physical as per admitting provider. 34-year-old female with a past medical history of IV drug abuse/opiate abuse presented to the hospital today with a chief complaint of right hand pain redness and swelling. Patient mentioned about 2 days ago she injured her right hand since then she has been having redness and swelling. Mentions that she missed her IV line and inject into the hand at the time. Mentioned that she uses heroin regularly and prior to coming to the hospital she used 3 heroin bags. Today she was changed with the police and subsequently ambulance was called and brought her to the hospital for further evaluation. Reports that over the few days she has been having dysuria and was diagnosed with UTI, given antibiotics as outpatient but she could not fill it up due to insurance concerns. ER course: Per ER team, patient noted to have right hand pain redness and swelling; x-ray showed evidence of foreign body; patient able to move her fingers and the wrist without any difficulty; urinalysis abnormal cluster with UTI. Given vancomycin and ceftriaxone. Hospital course Patient was admitted and seen in consultation by Orthopedics; on 11/26 patient underwent I and D by Dr. Oliver. She originally culture on 11/23/2024 and found to have 2/2 blood cultures with MRSA. Subsequent culture of I and D demonstrated MRSA as well. She was maintained on vancomycin and ceftriaxone and seen by ID who recommended completion of ceftriaxone to Ceftin for 7 days and 30 days of vancomycin. Patient underwent PICC line and we will complete her course of vancomycin as ordered. Echocardiogram with small mitral valve vegetation, valve looks within normal limits. Patient will need occupational therapy. EColi UTI. Completed treatment Polysubstance use disorder. Continue methadone Less than 30 day stay Time Attestation Discharge Coordination Time (in mins): 45 Quality: Safe Use of Opioids Does Pt have an Active Cancer Diagnosis on the Problem List?: No Quality: Stroke Does the patient have a stroke diagnosis?: No Physical Exam Exam: Exam: Appearing in no acute distress head is normocephalic atraumatic eyes pupils are PERRLA sclera is anicteric mouth throat mucous membranes are intact and moist neck is supple no lymphadenopathy, no JVD noted lung sounds are clear to auscultation heart regular rate rhythm, clear S1, S2 positive bowel sounds, abdomen is soft, nontender neuro patient is alert x3, no focal deficits Vital Signs: Vital Signs: Last Vital Signs Temp 97.9 F 12/04/24 07:19 Pulse 68 12/04/24 07:19 Resp 18 12/04/24 07:19 BP 119/58 L 12/04/24 07:19 Pulse Ox 97 12/04/24 07:19 O2 Del Method Room Air 12/04/24 07:19 O2 Flow Rate 1 11/24/24 00:29 BMI result Body Mass Index 21.0 DS: Data Data Completed and Pending Completed studies during hospitalization [Text1]: Procedures Drainage of Left Hand, Open Approach (05/17/23) Labs on day of discharge: Laboratory Results - last 24 hr 12/03/24 12/04/24 21:09 06:13 Hold Purple Top SEE NOTE Creatinine 0.64 Estim Creat Clear Calc 113.0 Estimated GFR > 60 Random Vancomycin 15.5 Discharge Plan Discharge Anticipated Discharge Date/Time: 12/04/24 12:13 Patient Disposition: Xfer SNF Discharge Diagnosis: MRSA bacteremia Right hand cellulitis with abscess endocarditis ECOLI UTI Discharge Medications: New methadone [Methadose] 10 mg/mL Concentrate 90 mg PO DAILY@0800 Qty: 30 0RF Rx Instructions: Partial Fill upon patient request. cefuroxime axetil 500 mg tablet 500 mg PO BID Qty: 14 0RF vancomycin in 0.9 % sodium chl 750 mg/150 mL piggyback 750 mg IV Q8H Discharge Orders: Discharge Order (Routine); Ordered 12/04/24 Ordered By: Nola Modi Diet: Advance to usual diet Activity on Discharge: As tolerated Stand Alone Forms: Patient Portal Discharge page Print Language: Macedonian Care Plan Goals: Continue IV vancomycin for total of 30 days, end date 12/31/2024, RN may remove PICC line after last dose Continue cefuroxime for 7 days Last dose of methadone 12/04/2024 Health Concerns: MRSA bacteremia Right hand cellulitis with abscess endocarditis ECOLI UTI Plan of Treatment: Follow up with primary care provider as needed Take all medications as prescribed Assessment: See discharge summary
[2024-12-04 15:01] VITALS: BP 130/69; PULSE 79; RESP 16; TEMP 36.5; O2SAT 98
--- NOTE | 2024-12-13 15:14 | P.CDIM_ITS ---
PROVIDER RESPONSE TEXT: To clarify, the appropriate diagnosis supported by the clinical indicators: Excisional debridement: I made a 1.5 cm longitudinal incision over the ulnar aspect of the apex of the abscess cavity. This was done to try and not be directly over the extensor tendons. We immediately encountered creamy yellow purulence from the abscess cavity. Cultures were taken. The abscess was drained. An I&D was then performed using a copious amount of normal saline, and debriding any clearly devitalized tissue. Along with a creamy yellow purulence there were some more viscus or solid areas of purulence these were removed, there was also some fibrinous exudate and this was removed from the patient using a rongeur or and using tenotomy scissors. The yellow fibrinous exudate was clearly devitalized tissue. Again anything that was devitalized as a result of the infection was removed. QUERY TEXT: PHYSICIAN'S DOCUMENTATION REQUEST Date of Query: 11/27/2024 12:52 PM EDT Patient Name: Aline Handy Admit Date: 11/24/2024 Dear Izabella Oliver MD, A review of the medical record indicates additional documentation may be needed. Please review below and update the documentation accordingly. Clinical Indicators: right dorsal hand I&D done on 11/26/24 Per Operative report 11/26/24: the abscess was drained An I&D was performed using a copious amount of normal saline, and debriding any clearly devitalized tissue. Could you provide, in the Progress Notes, further clarification regarding the type and nature of the debridement? Excisional debridement Please also address the Type of instrument used, What was excised, Depth of debridement, and Size and appearance of the wound as able Non-excisional debridement Please also address the Depth of debridement, and Size and appearance of the wound as able Other (explain) Clinically unable to determine (explain) Thank you, Thi Torres RN Use of terms such as suspected, likely, concern for, or probable (associated with a specific diagnosis that is being evaluated, monitored, or treated as if it exists) are acceptable and can be coded in the inpatient setting, when documented at the time of discharge. Please use your independent medical judgment in providing your response. THIS QUERY IS PART OF THE PERMANENT MEDICAL RECORD
== END 2024-12-04 15:08 | disposition skilled nursing facility (03) | DRG 951 ==
LOC: HO.ED 11-24 03:44 → HO.EDOVER 11-24 04:08 → HO.S3 11-24 07:31
PROVIDERS: Hospitalist; Internal Medicine; Orthopaedic Surgery; Physician Assistant; Physician Assistant Medical; Student in an Organized Health Care Education/Training Program; Admitting Provider Hospitalist; Emergency Provider Emergency Medicine; Visit Provider Nurse Practitioner Acute Care
PROC: 0XBJ0ZZ Excision of Right Hand, Open Approach (ICD-10-PCS; principal; 2024-11-26 09:15)
DX: L02.511 Cutaneous abscess of right hand (principal); I33.0 Acute and subacute infective endocarditis; R78.81 Bacteremia; F11.20 Opioid dependence, uncomplicated; B95.62 Methicillin resistant Staphylococcus aureus infection as the cause of diseases classified elsewhere; D64.9 Anemia, unspecified; T36.96XA Underdosing of unspecified systemic antibiotic, initial encounter; Z91.141 Patient's other noncompliance with medication regimen due to financial hardship; N39.0 Urinary tract infection, site not specified; F19.90 Other psychoactive substance use, unspecified, uncomplicated; B96.20 Unspecified Escherichia coli [E. coli] as the cause of diseases classified elsewhere; L03.113 Cellulitis of right upper limb; Z87.891 Personal history of nicotine dependence
CPT/HCPCS: 36415; 36573; 71045; 73110; 76882; 80048; 80053; 80143; 80179; 80202; 80307; 81001; 82565; 83605; 83735; 84702; 85025; 85652; 86140; 87040; 87070; 87077; 87086; 87088; 87147; 87186; 87205; 87389; 93306; 97110; 97165; 99285; C1751; J0131; J0360; J0696; J1171; J1650; J2003; J2250; J2704; J3010; J3374; J3475; J7120; Q9957; S9485

== ENCOUNTER 2024-11-24 04:08 | Outpatient (BNV) | payer MEDICAID, SELFPAY | END 2024-11-27 07:00 | PROVIDERS: Admitting Provider Hospitalist; Emergency Provider Emergency Medicine; Visit Provider Internal Medicine | DX: I34.89 Other nonrheumatic mitral valve disorders (principal); I51.7 Cardiomegaly | CPT/HCPCS: 93306 ==

== ENCOUNTER 2024-11-24 04:08 | Outpatient (BNV) | payer MEDICAID, SELFPAY | END 2024-12-01 13:00 | PROVIDERS: Admitting Provider Hospitalist; Emergency Provider Emergency Medicine; Visit Provider Radiology Diagnostic Radiology | DX: I82.B11 Acute embolism and thrombosis of right subclavian vein (principal); R78.81 Bacteremia | CPT/HCPCS: 36573 ==

== ENCOUNTER 2024-11-24 04:08 | Outpatient (BNV) | payer MEDICAID, SELFPAY | END 2024-11-29 15:49 | PROVIDERS: Admitting Provider Hospitalist; Emergency Provider Emergency Medicine; Visit Provider Radiology Diagnostic Radiology | DX: Z45.2 Encounter for adjustment and management of vascular access device (principal) | CPT/HCPCS: 71045 ==

== ENCOUNTER → 2024-11-24 04:08 | Outpatient (BNV) | payer MEDICAID, SELFPAY | PROVIDERS: Admitting Provider Hospitalist; Emergency Provider Emergency Medicine | DX: L02.519 Cutaneous abscess of unspecified hand (principal); L03.113 Cellulitis of right upper limb; A41.9 Sepsis, unspecified organism; F19.10 Other psychoactive substance abuse, uncomplicated | CPT/HCPCS: 99223 ==

== ENCOUNTER → 2024-11-24 04:08 | Outpatient (BNV) | payer MEDICAID, SELFPAY | PROVIDERS: Admitting Provider Hospitalist; Emergency Provider Emergency Medicine; Visit Provider Hospitalist | DX: R78.81 Bacteremia (principal); B95.62 Methicillin resistant Staphylococcus aureus infection as the cause of diseases classified elsewhere | CPT/HCPCS: 99223; 99232; 99239; 99499 ==

== ENCOUNTER → 2024-11-24 04:08 | Outpatient (BNV) | payer MEDICAID, SELFPAY | PROVIDERS: Admitting Provider Hospitalist; Emergency Provider Emergency Medicine; Visit Provider Internal Medicine | DX: F11.90 Opioid use, unspecified, uncomplicated (principal); F19.10 Other psychoactive substance abuse, uncomplicated; L03.113 Cellulitis of right upper limb; A41.9 Sepsis, unspecified organism; R78.81 Bacteremia; B95.62 Methicillin resistant Staphylococcus aureus infection as the cause of diseases classified elsewhere | CPT/HCPCS: 99222 ==

== ENCOUNTER → 2024-11-24 04:08 | Outpatient (BNV) | payer MEDICAID, SELFPAY | PROVIDERS: Admitting Provider Hospitalist; Emergency Provider Emergency Medicine; Visit Provider Nurse Practitioner Psychiatric/Mental Health | DX: F11.90 Opioid use, unspecified, uncomplicated (principal) | CPT/HCPCS: 99222; 99231; 99499 ==

== ENCOUNTER → 2024-11-24 | Outpatient (BNV) | payer MEDICAID, SELFPAY | PROVIDERS: Emergency Provider Emergency Medicine; Visit Provider Radiology Diagnostic Radiology | DX: R22.31 Localized swelling, mass and lump, right upper limb (principal); R50.9 Fever, unspecified; L03.113 Cellulitis of right upper limb; M01.X Direct infection of joint in infectious and parasitic diseases classified elsewhere | CPT/HCPCS: 71045; 73110; 76882 ==